=== PATIENT | female | born 1955 | race Caucasian/White ===

== ENCOUNTER 2016-09-05 19:18 | Inpatient (IN) | payer OTHER ==
[~2016-09-05] VITALS: Ht 152.4 cm; Wt 61.2 kg
--- NOTE | 2016-09-05 19:39 | NUR ---
RECEIVED 60 YO FEMALE BIBA FROM HOME WITH HX OF M.S., FOR ALTERED MENTAL STATUS. ACCORDING TO REPORT BY PARAMEDICS FROM , PT HAS BEEN SLIGHTLY DISORIENTED, AND MORE WEAK AND LESS ACTIVE THAN NORMAL. PT ORIENTED TO PT, PLACE, PT KNOWS IT IS 2015 BUT NOT WHICH MONTH. PT ANSWERING ALL QUESTIONS APPROPRIIATELY. HR 127
--- NOTE | 2016-09-05 19:45 | NUR ---
ASSISTED NEDA HARKINS WITH CLEANING PT, NOTED POSSIBLE 2ND DREE BURN ON LEFT INNER THIGH AND 2ND DEGREE BURN TO RIGHT BACK SIDE OF LEG APPROX FOOT IN LENGTH AND 3 IN WIDE, TORN SKIN NOTED, UNDER BILATERAL BREASTS OPEN SKIN FROM BRA AND RED IN COLOR REDNESS BETWEEN GROIN NOTED
--- NOTE | 2016-09-05 19:58 | NUR ---
ACCORDING TO WHO JUST ARRIVED TO ED, PT WAS FOUND BY ON THE FLOOR AND SHE THOUGHT SHE WAS ON THE CHAIR. ACCORDING TO , PT WAS SHOWING MENTAL CONFUSION TODAY WHICH IS ABNORMAL FOR HER. STATES SHE USES A WALKER OUTSIDE THE HOME BUT INSIDE HER HOME SHE WALKS BY HOLDING ON TO THINGS. F.S. 130.
--- NOTE | 2016-09-05 20:18 | NUR ---
PT SENT TO CT SCAN
--- NOTE | 2016-09-05 20:33 | CT SCAN REPORT ---
EXAMINATION: CT HEAD WITHOUT CONTRAST CLINICAL INFORMATION: Weakness and confusion. History of MS. COMPARISON: MRI from 05/24/2015. TECHNIQUE: Contiguous axial imaging was performed from the skull base to vertex without intravenous contrast. DLP: 672 mGy-cm. FINDINGS: There is no evidence of acute intracranial hemorrhage or territorial infarction. No abnormal mass effect or midline shift is seen. [place] to white matter differentiation is well preserved. No extra-axial fluid collections are identified. No hydrocephalus. Proportional prominence of the ventricles and sulcal spaces is consistent with mild volume loss. Hypoattenuation seen in the periventricular white matter corresponds to the areas of increased T2 signal on prior MRI. The osseous structures and soft tissues are normal. Mild mucoperiosteal thickening of the right maxillary sinus. The mastoid air cells and visualized portions of the paranasal sinuses are otherwise well aerated. IMPRESSION: No acute intracranial pathology. White matter hypoattenuation favoring the periventricular region is similar to the prior T2 bright areas on MRI, consistent with known MS.
--- NOTE | 2016-09-05 20:48 | RADIOLOGY REPORT ---
EXAMINATION: XR PORTABLE CHEST CLINICAL INFORMATION: Weakness. Confusion, wheezing. COMPARISON: None TECHNIQUE: Portable AP view of the chest was obtained. FINDINGS: Low lung volumes. No consolidation, edema, or effusion. No pneumothorax. The cardiomediastinal silhouette is within normal limits. No acute osseous abnormality. Calcification seen adjacent to the right humerus greater tuberosity suggestive of calcific tendinosis. IMPRESSION: No acute pulmonary findings.
--- NOTE | 2016-09-05 21:00 | ED AMS/SEIZURE/WEAK/DIZZY ---
History of Present Illness General Chief Complaint: Altered Mental Status Stated Complaint: BIBA, FALL AMS Source: patient, family, old records, EMS Exam Limitations: clinical condition Vital Signs & Intake/Output Vital Signs & Intake/Output Vital Signs Date Time Temp Pulse Resp B/P Pulse O2 O2 Flow FiO2 Ox Delivery Rate 09/05 2306 99.6 128 18 120/84 96 Room Air 09/05 2136 97 Room Air 09/06 2131 99.2 131 0 129/60 96 Room Air 09/05 1930 98.4 127 18 145/94 92 Room Air Allergies Coded Allergies: NO KNOWN ALLERGIES (04/27/14) Reconcile Medications Aspirin (Ecotrin*) 81 MG TABLET.DR 1 TAB PO DAILY HEART HEALTH (Reported) Atorvastatin Calcium 40 MG TABLET 1 TAB PO DAILY HIGH CHOLESTROL (Reported) Carbamazepine (Tegretol XR) 100 MG TAB.ER.12H 1 TAB PO BIDP PRN TRIGEMINAL NEURALGIA (Reported) Loratadine (Claritin) 10 MG TABLET 1 TAB PO DAILY NEEDED ALLERGIES ( Reported) Natalizumab (Tysabri) 300 MG/15 ML VIAL MULTIPLE SCLEROSIS (Reported) Triage Note: RECEIVED 60 YO FEMALE BIBA FROM HOME WITH HX OF M.S., FOR ALTERED MENTAL STATUS. ACCORDING TO REPORT BY PARAMEDICS FROM , PT HAS BEEN SLIGHTLY DISORIENTED, AND MORE WEAK AND LESS ACTIVE THAN NORMAL. PT ORIENTED TO PT, PLACE, PT KNOWS IT IS 2015 BUT NOT WHICH MONTH. PT ANSWERING ALL QUESTIONS APPROPRIIATELY. HR 127 Triage Nurses Notes Reviewed? yes Onset: Just prior to arrival Duration: hour(s):, constant, continues in ED Timing: recent history Injury Environment: home Severity: severe No Modifying Factors: none LMP (ages 10-50): post menopausal : No Patient currently breastfeeds: No HPI: Several hours prior to admission spouse notes patient had episodes of swearing every few minutes. He reports being ill and napping for the course of the day. He found her confused to time on the floor next to her chair unable to get up. There is no reported fever chills nausea vomiting diarrhea abdominal pain chest pain shortness breath headache dysuria rash bleeding. Past History Travel History Traveled to [place] past 21 day No Medical History Any Pertinent Medical History? see below for history Neurological: multiple sclerosis, trigeminal neuralgia EENT: NONE Cardiovascular: hyperlipidemia Respiratory: NONE Gastrointestinal: NONE Hepatic: NONE Renal: NONE Musculoskeletal: NONE Psychiatric: NONE Endocrine: NONE Surgical History Surgical History: non-contributory Psychosocial History What is your primary language Uzbek Tobacco Use: Current Daily Use Daily Tobacco Use Amount/Type: => 5 Cigarettes daily Family History Hx Contributory? No Review of Systems Review of Systems Constitutional: Reports: see HPI, weakness. EENTM: Reports: no symptoms. Respiratory: Reports: no symptoms. Cardiovascular: Reports: no symptoms. GI: Reports: no symptoms. Genitourinary: Reports: no symptoms. Musculoskeletal: Reports: no symptoms. Skin: Reports: no symptoms. Neurological/Psychological: Reports: see HPI, confusion, weakness. Hematologic/Endocrine: Reports: no symptoms. Immunologic/Allergic: Reports: no symptoms. All Other Systems: Reviewed and Negative Physical Exam Physical Exam General Appearance: well developed/nourished, alert, awake, anxious, mild distress Head: atraumatic, normal appearance Eyes: Bilateral: normal appearance, PERRL, EOMI. Ears, Nose, Throat: normal pharynx, normal ENT inspection Neck: normal inspection, supple, full range of motion, no midline tenderness Respiratory: chest non-tender, no respiratory distress, quiet respiration, lungs clear, wheezing Cardiovascular: regular rate/rhythm, normal peripheral pulses, tachycardia, norml femoral pulses equa Peripheral Pulses: 4+ carotid (R), 4+ carotid (L) Gastrointestinal: normal bowel sounds, soft, non-tender, no organomegaly Back: normal inspection, normal range of motion Extremities: normal range of motion, no ligament instability Neurologic/Psych: no motor/sensory deficits, awake, 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 Skin: normal color, warm/dry, rash, right posterior calf to knee with skin tear versus partial thickness burn Lymphatic: no anterior cervical amina Core Measures ACS in differential dx? No CVA/TIA Diagnosis: No Severe Sepsis Present: No Septic Shock Present: No Progress Differential Diagnosis: CVA/stroke, dehydration, drug intoxication, electrolyte imbalance, hypoglycemia, intracranial Hem., multiple sclerosis, pneumonia, UTI/ pyelo Plan of Care: Orders Procedure Date/time Status Regular Diet 09/06 B Active CBC WITHOUT DIFFERENTIAL 09/06 06 Active BASIC ELECTROLYTES PLUS BUN&CR 09/06 06 Active Add-on Test (ER Only) 09/05 2326 Active RAPID VIRAL INFLUENZA A 09/05 230 Active BLOOD CULTURE 09/05 2246 Active LACTIC ACID 09/05 2246 Active Add-on Test (ER Only) 09/05 2144 Active Patient Data 09/05 2136 Active Intake & Output 09/06 2131 Active SERUM OSMOLALITY 09/05 2109 Active LACTIC ACID 09/05 2109 Active OXYGEN SETUP (GEN) 09/05 2057 Active Saline Lock 09/05 2057 Active Admit to inpatient 09/05 2057 Active Vital Signs 09/05 2057 Active Activity/Ambulation 09/05 2057 Active Code Status 09/05 2057 Active FingerStick- Glucose 09/05 2002 Active URINALYSIS 09/05 1948 Complete TROPONIN LEVEL 09/05 1948 Active COMPREHENSIVE METABOLIC PANEL 09/05 1948 Active CREATINE PHOSPHOKINASE 09/05 1948 Active CBC WITHOUT DIFFERENTIAL 09/05 1948 Complete EKG 09/06 1939 Active Current Medications Sig/Ronak Start time Last Medication Dose Stop Time Status Admin Aspirin Buffered 81 MG DAILY 09/06 1000 UNVr (Ecotrin) Carbamazepine 100 MG BID 09/06 1000 UNVr (Tegretol) Laboratory Tests 09/05/162109: Anion Gap 11, Estimated GFR > 60, BUN/Creatinine Ratio 22.5, Glucose 138 H, Serum Osmolality 301 H, Lactic Acid Pending, Calcium 10.0, Total Bilirubin 0.7, AST 748 H, ALT 156 H, Alkaline Phosphatase 155 H, Creatine Kinase > 06187 H, Troponin I 0.02, Total Protein 7.6, Albumin 4.5, Globulin 3.1, Albumin/Globulin Ratio 1.5, CBC w Diff NO MAN DIFF REQ, RBC 5.76 H, MCV 89.8, MCH 29.6, RDW 14.5 , MPV 7.9, Gran % 84.6 H, Lymphocytes % 10.9 L, Monocytes % 4.4, Eosinophils % 0, Basophils % 0.1, Absolute Granulocytes 12.1 H, Absolute Lymphocytes 1.6, Absolute Monocytes 0.6, Absolute Eosinophils 0, Absolute Basophils 0, PUBS MCHC 33.0, Urine Color YEL, Urine Clarity CLEAR, Urine pH 6.0, Ur Specific [place] 1.025, Urine Protein 100 H, Urine Ketones 15 H, Urine Nitrite NEG, Urine Bilirubin NEG@ICTO, Urine Urobilinogen 0.2, Ur Leukocyte Esterase NEG, Ur Microscopic SEDIMENT EXAMINED, Urine RBC 3-5, Ur Epithelial Cells FEW, Urine Bacteria MOD H, Urine Hemoglobin LARGE H, Urine Glucose NEG Microbiology 09/05 2320 NASOPHARYN: Influenza Virus A & B Rapid Smear - RECD 09/05 2246 BLOOD: Blood Culture - ORD 09/05 2246 BLOOD: Blood Culture - ORD Diagnostic Imaging: Viewed by Me: Radiology Read, CT Scan. Discussed w/RAD: Radiology Read, CT Scan. Radiology Impression: no acute abnormality CXR Impression: no acute abnormality Initial ED EKG: normal axis, normal intervals, normal p-waves, normal QRS complex, rate (sinus tachycardia), no ST T wave changes Rhythm Strip: sinus tachycardia Departure Departure Disposition: STILL A PATIENT Condition: Stable Clinical Impression Primary Impression: Rhabdomyolysis Qualifiers: Rhabdomyolysis type: non-traumatic Qualified Code: M62.82 - Rhabdomyolysis Secondary Impressions: Altered mental status, unspecified Leukocytosis Qualifiers: Leukocytosis type: unspecified Qualified Code: D72.829 - Elevated white blood cell count, unspecified Referrals: ROSEMARY WILEY MD (PCP/Family) Departure Forms: Customer Survey General Discharge Information Admission Note Spoke With: LENARD FARAH MD Documentation of Exam: Documentation of any treatments & extenuating circumstances including Concerns Regarding Discharge (functional status, medication knowledge or non-compliance, living conditions, etc.) that warrant an admission rather than observation: IV hydration serial lab exam medication adjustment neurology evaluation and social service evaluation continuing care discharge planning
[2016-09-05 21:19] LABS: ABSOLUTE BASOPHIL COUNT 0 /CUMM (0.0-0.2); ABSOLUTE EOSINOPHIL COUNT 0 /CUMM (0.0-0.7); ABSOLUTE GRANULOCYTE CT 12.1 /CUMM (1.4-6.5); ABSOLUTE LYMPH COUNT 1.6 /CUMM (1.2-3.4); ABSOLUTE MONOCYTE COUNT 0.6 /CUMM (0.10-0.60); BASOPHIL % 0.1 % (0.0-2.0); EOSINOPHIL % 0 % (0-5); GRANULOCYTE % 84.6 % (42.2-75.2); HEMATOCRIT 51.8 % (37-47); MEAN CORPUSCULAR HGB 29.6 PG (27.0-31.0); MEAN CORPUSCULAR VOLUME 89.8 FL (81.0-99.0); MEAN PLATELET VOLUME 7.9 FL (7.4-10.4); PLATELET COUNT 206 /CUMM (130-400); RBC DISTRIBUTION WIDTH 14.5 % (11.5-14.5); RED BLOOD CELL CT 5.76 /CUMM (4.20-5.40); WHITE BLOOD CELL COUNT 14.3 /CUMM (4.8-10.8)
--- NOTE | 2016-09-05 22:04 | NUR ---
LAB CALLED STATING AST WAS ERRONEOUSLY RESULTED >750, SHOULD HAVE BEEN 748 AND IS BEING CHANGED AT THIS TIME.
[2016-09-05] MEDS ORDERED: ATORVASTATIN CA40 M1 PO (22:11)
[2016-09-05] MEDS ORDERED: ASPIRIN EC81 M1 PO (22:12)
[2016-09-05] MEDS ORDERED: TEGRETOL XR100 MG PO (22:13)
[2016-09-05] MEDS ORDERED: CLARITIN10 M1 PO (22:14)
[2016-09-05] MEDS ORDERED: TYSABRI300 MG/15 IV (22:16)
--- NOTE | 2016-09-05 22:16 | NUR ---
PT TO ROOM 215 BED 2
--- NOTE | 2016-09-05 22:26 | History & Physical ---
General Information and HPI Allergies/Medications Allergies: Coded Allergies: NO KNOWN ALLERGIES (04/27/14) Home Med list Aspirin (Ecotrin*) 81 MG TABLET.DR 1 TAB PO DAILY HEART HEALTH (Reported) Atorvastatin Calcium 40 MG TABLET 1 TAB PO DAILY HIGH CHOLESTROL (Reported) Carbamazepine (Tegretol XR) 100 MG TAB.ER.12H 1 TAB PO BIDP PRN TRIGEMINAL NEURALGIA (Reported) Loratadine (Claritin) 10 MG TABLET 1 TAB PO DAILY NEEDED ALLERGIES ( Reported) Natalizumab (Tysabri) 300 MG/15 ML VIAL MULTIPLE SCLEROSIS (Reported) Past History Travel History Traveled to [place] past 21 day No Medical History Neurological: multiple sclerosis, trigeminal neuralgia EENT: NONE Cardiovascular: hyperlipidemia Respiratory: NONE Gastrointestinal: NONE Hepatic: NONE Renal: NONE Musculoskeletal: NONE Psychiatric: NONE Endocrine: NONE
--- NOTE | 2016-09-05 22:49 | History & Physical ---
See Addendum General Information and HPI History of Present Illness: 60 year old lady with a PMH of multiple sclerosis and hypercholesterolemia presenting with altered mental status for 1 day and significantly worsening lower extremity weakness for 2 weeks. Per patient's lower extremity has been progresssively worsening over the past 5 years, requiring her to ambulate with a cane and walker. Since 2 weeks ago however her weakness has dramatically worsened to the point that she was unable to walk for the past couple of days. Per , patient fell 3-4 times due to imbalance during the past year causing multiple superficial injuries but no hospitalizations. She has been bedbound for the most part recently as a result. Earlier in the afternoon today the patient was found on the floor with altered mental status. reports that she was agitated, cursing, talking to herself, and slow to answering questions since the morning. He feels that patient was also slgithly warm to touch in the forehad for the past couple of days. She has a nonrpoductive cough at baseline. Denies any chest pain, palpitations, shortness of breath, abdominal pain, n/v/c/d, dizziness, lightheadedness, headache. Patient was diagnosed with MS about 20 years ago, with the primary symptoms being double vision and for the past 5 years, also lower extremity weakness. Patient sees Dr. Irizarry every other month and receives Tysabri at [facility] on a monthly basis (most recelty on 08/21/15, next due 09/18). She also takes Tegretol for neuralgia with appropriate response. During her follow up 2 weeks ago there were no significant changes in her health or management for MS. On patient lives at home with her . She smokes up to 2 PPD (10+ year). Denies any EtOH or illicit drug use. She ambulates with a cane and a walker. She used to work in the [employer] field and quit 10 years ago. PCP - Dr. Wiley Neuro - Dr. Irizarry Full code. Allergies/Medications Allergies: Coded Allergies: NO KNOWN ALLERGIES (04/27/14) Home Med list Aspirin (Ecotrin*) 81 MG TABLET.DR 1 TAB PO DAILY HEART HEALTH (Reported) Atorvastatin Calcium 40 MG TABLET 1 TAB PO DAILY HIGH CHOLESTROL (Reported) Carbamazepine (Tegretol XR) 100 MG TAB.ER.12H 1 TAB PO BIDP PRN TRIGEMINAL NEURALGIA (Reported) Loratadine (Claritin) 10 MG TABLET 1 TAB PO DAILY NEEDED ALLERGIES ( Reported) Natalizumab (Tysabri) 300 MG/15 ML VIAL MULTIPLE SCLEROSIS (Reported) Past History Travel History Traveled to [place] past 21 day No Medical History Neurological: multiple sclerosis, trigeminal neuralgia EENT: NONE Cardiovascular: hyperlipidemia Respiratory: NONE Gastrointestinal: NONE Hepatic: NONE Renal: NONE Musculoskeletal: NONE Psychiatric: NONE Endocrine: NONE Surgical History Surgical History: appendectomy Past Family/Social History Psychosocial History Where do you live? Home Review of Systems Review of Systems Constitutional: Reports: see HPI. Exam & Diagnostic Data Last 24 Hrs of Vital Signs/I&O Vital Signs Date Time Temp Pulse Resp B/P Pulse O2 O2 Flow FiO2 Ox Delivery Rate 09/057 99.6 128 18 120/84 96 Room Air 09/057 97 Room Air 09/06 2131 99.2 131 0 129/60 96 Room Air 09/05 1931 98.4 127 18 145/94 92 Room Air Physical Exam General Appearance Alert, Cooperative, Mild Distress, Slightly lethargic Skin Abrasions and laceration in the post RLE and back HEENT Atraumatic, PERRLA, EOMI Neck Supple, No JVD Cardiovascular Regular Rate, Normal S1, Normal S2, No Murmurs, Gallops, Rubs Lungs Decreased BS bilaterally, Mild wheezing worse on the left side Abdomen Normal Bowel Sounds, Soft, No Tenderness Neurological Normal Gait, Normal Speech, Sensation Intact, Cranial Nerves 3-12 NL, 3/5 strength in bilateral LEs Extremities No Clubbing, No Cyanosis, No Edema, Normal Pulses, No Tenderness/ Swelling Vascular Normal Pulses, Pulses Symmetrical Last 24 Hrs of Labs/Meet: Laboratory Tests 09/05/162109: Anion Gap 11, Estimated GFR > 60, BUN/Creatinine Ratio 22.5, Glucose 138 H, Serum Osmolality 301 H, Calcium 10.0, Total Bilirubin 0.7, AST 748 H, ALT 156 H, Alkaline Phosphatase 155 H, Creatine Kinase > 67155 H, Troponin I 0.02, Total Protein 7.6, Albumin 4.5, Globulin 3.1, Albumin/Globulin Ratio 1.5, CBC w Diff NO MAN DIFF REQ, RBC 5.76 H, MCV 89.8, MCH 29.6, RDW 14.5, MPV 7.9, Gran % 84.6 H, Lymphocytes % 10.9 L, Monocytes % 4.4, Eosinophils % 0, Basophils % 0.1, Absolute Granulocytes 12.1 H, Absolute Lymphocytes 1.6, Absolute Monocytes 0.6, Absolute Eosinophils 0, Absolute Basophils 0, PUBS MCHC 33.0, Urine Color YEL, Urine Clarity CLEAR, Urine pH 6.0, Ur Specific [place] 1.025, Urine Protein 100 H, Urine Ketones 15 H, Urine Nitrite NEG, Urine Bilirubin NEG@ICTO, Urine Urobilinogen 0.2, Ur Leukocyte Esterase NEG, Ur Microscopic SEDIMENT EXAMINED, Urine RBC 3-5, Ur Epithelial Cells FEW, Urine Bacteria MOD H, Urine Hemoglobin LARGE H, Urine Glucose NEG Microbiology 09/05 2301 NASOPHARYN: Influenza Virus A & B Rapid Smear - ORD 09/05 2246 BLOOD: Blood Culture - ORD 09/05 2246 BLOOD: Blood Culture - ORD Diagnostic Data EKG Results Sinus tachycardia Assessment/Plan Assessment: 60 year old lady with a PMH of multiple sclerosis and hypercholesterolemia presenting with altered mental status for 1 day and significantly worsening lower extremity weakness for 2 weeks, concerning for sepsis 2/2 cellulitis and MS exacerbation, respectively. # Sepsis 2/2 RLE cellulitis * Start IV cefazolin * IV hydration with NS at 150cc/hr * Trend lactic acid level * Recheck CBC in A.M. * Recheck CK in A.M. * Follow RLE Xray stat * Follow pancultures * Consult wound care in A.M. # MS exacerbation * Cont home med Tegretol for neuralgia * Appreciate recs from Dr. Irizarry * B/L LE Venous Doppler * Follow D-dimer, CTA if it's high * PT/OT recs # Transaminitis and eleavated CK Most likely from trauma-induced muscle injury probably with a component of statin use * Aggressive IVF resuscitation * Recheck LFTs and CK in A.M * Consider RUQ U/S if LFTs still elevated # HLD * Hold home med lipitor in the setting of elevated CK # Heart healthy diet # Mild pain pathway # DVTppx with heparin # Full code As Ranked By This Provider Problem List: 1. Altered mental status, unspecified 2. Rhabdomyolysis Qualifiers Rhabdomyolysis type: non-traumatic Qualified Code: M62.82 - Rhabdomyolysis 3. Leukocytosis Qualifiers Leukocytosis type: unspecified Qualified Code: D72.829 - Elevated white blood cell count, unspecified 4. Transaminitis 5. Elevated CPK 6. Cellulitis 7. Sepsis Core Measures/Miscellaneous Acute Coronary Syndrome ACS Diagnosis: No Cerebrovascular Accident CVA/TIA Diagnosis: No Congestive Heart Failure CHF Diagnosis: No Venous Thromboembolism VTE Risk Factors: Age > 40, Immobility, paresis, Smoking No [facility] VTE prophylaxis d/t: LE Edema, LE Injury, current No VTE Pharm Prophylaxis d/t: No contraindications VTE Diagnosis: No VTE Type: NONE VTE Confirmed by (Test): NONE Severe Sepsis Severe Sepsis Present: No Septic Shock Septic Shock Present: No Miscellaneous Documentation Attending Case Discussed With: LENARD FARAH MD Primary Care Physician: ROSEMARY WILEY MD Patient sees these Specialists See HPI Level of Patient Care: General Medicine
--- NOTE | 2016-09-05 23:17 | NUR ---
PT ADMITTED TO ROOM # 215-2, ORAL REPORT GIVEN TO JENNY DOS SANTOS ALL V.S.S. CLINICAL STATUS UNCHANGED. PT READY FOR TRANSFER
--- NOTE | 2016-09-05 23:20 | NUR ---
FLU SWAB OBTAINED AND SENT 1ST BL CULT DRAWN AND SENT
--- NOTE | 2016-09-05 23:40 | NUR ---
2ND BL CULT DRAWN AND SENT
--- NOTE | 2016-09-05 23:48 | NUR ---
CRITICAL TEST RESULTS [id number] ELVA KIMBLE 60 F TESTS AND RESULTS: LACTIC = 2.2 Results received and read back by: ROSEMARIE MONROY Results received date and time: 09/05/16 5219 The following provider was notified of the results, and read the results back: Notified date and time: 09/05/16 at 9945
--- NOTE | 2016-09-06 01:13 | RADIOLOGY REPORT ---
EXAMINATION: AP view of the thoracic spine, AP view of the chest, 2 views of the right RIBS, 2 views of the left ribs, and 2 views of the right foot CLINICAL INFORMATION: Fall with pain COMPARISON: Chest x-ray 09/05/2016 FINDINGS: Chest and RIBS: Symmetric lung inflation. No focal consolidation, pleural effusion, or pneumothorax. Cardiac silhouette size is normal. No acute osseous findings. No displaced rib fractures. Thoracolumbar spine: Very limited assessment given the lack of a lateral view. There is a mild leftward convex scoliotic curvature of the lumbar spine. Degenerative changes at L4-L5. No definite acute fractures nor acute subluxations are identified on this frontal view. Nonobstructive bowel gas pattern. Right foot: Limited assessment of the foot with a lack of AP view. No fracture. Bony articulations are maintained. No radiopaque foreign bodies. IMPRESSION: - No acute pulmonary process. No displaced rib fractures are seen. - Very limited assessment of the thoracolumbar spine as the patient was not able to position for a lateral view. No definite fractures are seen though assessment is limited. There are degenerative changes at L4-L5. - No definite acute osseous findings involving the right foot however assessment is limited as the patient was not able to position for an AP view.
--- NOTE | 2016-09-06 02:47 | NUR ---
NSG NOTE: PT ARRIVED TO FLOOR WITH MST. PT AWAKE, A/O TO PERSON AND PLACE, ON ROOM AIR, IV SITE INTACT WITH IVF INFUSING PER ORDER, VITALS OBTAINED AND PT RUNNING TACHY IN THE 120'S, MD GE AWARE, DRY SCALY, PEELING SKIN NOTED TO BLE, BUE, BILAT CHEST, AREAS OF REDNESS NOTED UNDER BILAT BREASTS, GROIN AND UNDER ABD FOLDS, AREA OF RED, PEELED/BLISTERED SKIN AT R POSTERIOR KNEE, ALPS IN PLACE, PT DENIES PAIN, PT ORIENTED TO ROOM AND CALL DARLING WITHIN REACH. WILL CONTINUE TO MONITOR.
--- NOTE | 2016-09-06 03:28 | PN- Att Addend ---
Attending Addendum Attending Brief Note cc: fall, changes in mental status PMH: Multiple sclerosis History is partially obtain from and from the patient. states that patient has been moaning and using curse words repeatedly during the daytime which is not usual for her. was sick with URI symptoms so he was sleeping in other room and verbally I asked her couple of times if something was wrong, patient denied anything. But later on when patient's went and checked on her patient was lying on the floor, refusing to go to hospital. Patient did not complain to the about the fall, she said that she slipped from the chair. Patient denies any complaints. She says that she is been having multiple falls recently. She admits some back pain but otherwise 14 system ROS negative. says that patient has been getting more weak and lethargic over last 2 weeks, used to walk with a cane and walker but less ambulating since last 2 days, multiple falls, balance problems. According to patient is not to her baseline mental status. No seizures, no loss of consciousness, no confusion, no bowel or bladder incontinence. Vitals: T max 99.6, tachycardic, RR 18, blood pressure 145/94 at presentation decreased to 120/84, saturating well on room air. On examination cachectic, poor hygiene, alert, oriented place and person, little off in time but recalls back again. Cranial nerves intact, increased tone bilateral lower extremities, and left upper extremity. Bilateral upper extremity strength 5/5. Lower extremity strength 3+/5. Sensations intact. CVS: S1-S2, tachycardia. RS: Clear to auscultate bilaterally. Abdomen: Soft, NT, ND, Perales's sign negative, bowel sounds present., Mucosa dry, neck supple, no lymphadenopathy, no JVD. Patient has skin breakdown on the right popliteal fossa appears at least 2 days old, with peripheral redness, warmth. Patient also has a bruise on the right side of upper back, tender, warm to touch. The right lower extremity is larger in diameter compared to left lower extremity. Minimum pitting edema. She has fungal infection in inguinal folds, and seborrheic dermatitis forehead and chest. Labs: WBC 14.3, hemoglobin 17.1, neutrophils 84%, BUN 18, glucose 138, lactic acid 2.2, AST 748, ALT 156, alkaline phosphatase 155, CK more than 32,000, troponin 0.02, albumin 4.5, d-dimer 2872. UA negative for UTI. Imaging: CT head:No acute intracranial pathology. White matter hypoattenuation favoring the periventricular region is similar to the prior T2 bright areas on MRI, consistent with known MS. CXR: No acute process A and p #1 unwitnessed fall: Patient refuses loss of consciousness, seizures, presyncope , bowel or bladder incontinence she said she slipped from the chair. She is been having multiple falls recently with balance problem. Obtain OT PT evaluation #2 skin breakdown on the right popliteal fossa with secondary infection: May have happened in one of the falls, patient neglects this wound, does not complain much. Patient has elevated WBC 14.3 with neutrophils 84% low-grade fever, the wound area is erythematous and warm. Would treat this with cefazolin for now, wound consult, blood cultures 2. Trend lactate #3 patient also has contusion on the back right upper aspect, probably secondary to fall rule out any fractures with x-rays thoracolumbar spine and ribs. #4 rhabdomyolysis: Elevated CPK probably secondary to falls, creatinine appears normal. Continue aggressive hydration with 150-200 mL and normal saline per hour repeat CPK BMP in a.m. Patient is hemoconcentrated, and dehydrated on exam. #5 transaminitis: Unclear etiology patient is currently on Natalizumab which has one of the complications as transaminitis. Rhabdomyolysis and statins may be contributing. Continue hydration for now, repeat LFT in a.m. given her confusion , obtain ammonia in the setting of elevated transaminitis. #6 metabolic encephalopathy: According to her patient is not her mental baseline. Patient is little slow to respond, oriented in place and person but takes some time to answer about orientation. Probably secondary to infection, rule out hepatic cause as mentioned above. #7 patient's right lower extremity is increase in diameter as compared to left side, has been tachycardic. Patient is less mobile and mostly bedbound, in this setting, obtain venous Doppler bilateral lower extremity and d-dimer. If d-dimer is elevated I would suggest getting a CTA to rule out any PE. #8 inform patient's neurologist about patient being in hospital and worsening her baseline mental status, upon patient's 's request. #9 DVT prophylaxis with Lovenox, nystatin powder for inguinal fold infection.
[2016-09-06 04:05] VITALS: BP 140/80
--- NOTE | 2016-09-06 06:02 | PN- Housestaff ---
Subjective Follow-up For: Sepsis MS ?Cellulitis Subjective: Ms. Evans was seen and examined this morning. She is resting comfortably in bed. She denies any active complaints and seems comfortable. She is alert however not oriented 3. Initially she does mention that she is unhappy about her lack of a normal retreating which she normally has at home. She denies any pain, fever, nausea, vomiting, chills. Review of Systems Constitutional: Reports: see HPI. Objective Last 24 Hrs of Vital Signs/I&O Vital Signs Date Time Temp Pulse Resp B/P Pulse O2 O2 Flow FiO2 Ox Delivery Rate 09/06 1505 99.1 126 18 134/76 96 09/06 1030 122 09/06 0933 Room Air 09/06 0747 99.9 124 20 150/84 92 Room Air 09/06 0405 100.3 120 24 140/80 93 Room Air 09/06 0134 93 Room Air 09/05 2307 99.6 128 18 120/84 96 Room Air 09/05 2137 97 Room Air 09/05 2132 99.2 131 0 129/60 96 Room Air 09/05 1931 98.4 127 18 145/94 92 Room Air Intake & Output 09/06 1600 09/06 0800 09/06 0000 Intake Total 2000 1010 1000 Output Total 350 Balance 1650 1010 1000 Intake, IV 5746 889 5468 Intake, Oral 800 360 Output, Urine 350 Patient 61.235 kg Weight Physical Exam General Appearance: Alert, Cooperative, No Acute Distress Cardiovascular: Regular Rate, Normal S1, Normal S2 Lungs: Clear to Auscultation Abdomen: Normal Bowel Sounds, Soft, No Tenderness Neurological: Normal Speech Extremities: No Clubbing, No Cyanosis, 5cm x 5cm. Erythematous ulcer. Right Inferior Knee. Non Tender. Warm to touch. Weeping + Current Medications: Current Medications Sig/Ronak Start time Last Medication Dose Route Stop Time Status Admin Acetaminophen 650 MG Q6P PRN 09/06 0030 AC PO Aspirin Buffered 81 MG DAILY 09/06 1000 AC 09/06 PO 1009 Carbamazepine 50 MG BID 09/06 2200 AC PO Carbamazepine 100 MG BID 09/06 1000 DC 09/06 PO 1009 Cefazolin Sodium 1,000 MG Q8H 09/06 2200 AC N/A 1 UNIT IV Cefazolin Sodium 2 GM Q8H 09/06 0600 DC 09/06 N/A 1 UNIT IV 1343 Cefazolin Sodium 2 GM IQ8 09/06 0200 DC 09/06 N/A 1 UNIT IV 0526 Heparin Sodium 5,000 UNIT Q8 09/06 0600 09/06 (Porcine) SC 1341 Lamotrigine 25 MG DAILY 09/06 1524 AC 09/06 PO 1752 Nystatin 1 AIDA TID 09/06 0020 09/06 TOP 1752 Patient Medication 1 ED .STK-MED ONE 09/06 1343 MS Teaching ED 09/06 1344 Sodium Chloride 1,000 ML Q6H 09/05 2345 AC 09/06 IV 1752 Sodium Chloride 1,000 ML BOLUS ONE 09/05 2215 DC 09/05 IV 09/05 2314 2304 Sodium Chloride 1,000 ML BOLUS ONE 09/06 1999 DC 09/05 IV 09/051 Last 24 Hrs of Lab/Meet Results Last 24 Hrs of Labs/Mics: Laboratory Tests 09/06/16 0650: Anion Gap 7, Estimated GFR > 60, BUN/Creatinine Ratio 20.0, Total Bilirubin 0.4, Direct Bilirubin 0.3, AST 916 H, ALT 184 H, Alkaline Phosphatase 106, Creatine Kinase > 54872 H, Total Protein 5.4 L, Albumin 2.9 L, CBC w Diff NO MAN DIFF REQ, RBC 4.84, MCV 91.8, MCH 30.1, RDW 14.7 H, MPV 8.6, Gran % 68.9, Lymphocytes % 18.6 L, Monocytes % 12.2 H, Eosinophils % 0, Basophils % 0.3, Absolute Granulocytes 7.8 H, Absolute Lymphocytes 2.1, Absolute Monocytes 1.4 H, Absolute Eosinophils 0, Absolute Basophils 0, PUBS MCHC 32.8 L 09/06/16 0255: Ammonia < 9 L 09/06/16 0235: D-Dimer 2872 H 09/05/16 2320: Lactic Acid 2.1 09/05/16 2110: Anion Gap 11, Estimated GFR > 60, BUN/Creatinine Ratio 22.5, Glucose 138 H, Serum Osmolality 301 H, Lactic Acid 2.2 H, Calcium 10.0, Total Bilirubin 0.7, AST 748 H, ALT 156 H, Alkaline Phosphatase 155 H, Creatine Kinase > 60826 H, Troponin I 0.02, Total Protein 7.6, Albumin 4.5, Globulin 3.1, Albumin/Globulin Ratio 1.5, CBC w Diff NO MAN DIFF REQ, RBC 5.76 H, MCV 89.8, MCH 29.6, RDW 14.5 , MPV 7.9, Gran % 84.6 H, Lymphocytes % 10.9 L, Monocytes % 4.4, Eosinophils % 0, Basophils % 0.1, Absolute Granulocytes 12.1 H, Absolute Lymphocytes 1.6, Absolute Monocytes 0.6, Absolute Eosinophils 0, Absolute Basophils 0, PUBS MCHC 33.0, Urine Color YEL, Urine Clarity CLEAR, Urine pH 6.0, Ur Specific [place] 1.025, Urine Protein 100 H, Urine Ketones 15 H, Urine Nitrite NEG, Urine Bilirubin NEG@ICTO, Urine Urobilinogen 0.2, Ur Leukocyte Esterase NEG, Ur Microscopic SEDIMENT EXAMINED, Urine RBC 3-5, Ur Epithelial Cells FEW, Urine Bacteria MOD H, Urine Hemoglobin LARGE H, Urine Glucose NEG Microbiology 09/05 2329 BLOOD: Blood Culture - RES 09/06 2319 NASOPHARYN: Influenza Virus A & B Rapid Smear - COMP 09/06 2319 BLOOD: Blood Culture - RES Assessment/Plan Assessment: This is a 60-year-old female with past medical history of hyperlipidemia and multiple sclerosis who was brought into the emergency department on 09/05/2016 after having a change of mental status and status post unwitnessed mechanical fall. #Unwitnessed mechanical fall and evidence of rhabdomyolysis Mental status change status post fall and elevated creatinine kinase. Likely secondary to fall. Aggressive hydration and repeat CPK in a.m. Formal neurologic consult obtained. For further recommendations on change in mental status. #Skin breakdown right popliteal fossa Likely due to deconditioning of due to history of multiple sclerosis. Ensure the area remains dry. Keep leg elevated. Consider wound care consult for further recommendations on long-term wound care instructions. #Transaminitis Patient had an elevated AST 916 and ALT 184 levels. Repeat ALT and AST in AM Likely due to medications (carbamazipine). We will reduce the patient's dose of carbamazepine and likely try and find an alternative for trigeminal neuralgia relief. #History of multiple sclerosis Dr Edie MD, was notified that the patient has been admitted to [facility]. Continue to [facility] on a monthly basis #History of trigeminal neuralgia Patient is taking Carbamazepine (Tegretol) Spoke with neurologist Dr Edie MD, who is open to this suggestion that we can begin to reduce Tegretol and begin the patient on Lamotrigine. Monitor that patient for any side effects including SJS. #Hyperlipidemia Hold statin for now in the setting of elevated CPK. Once levels normalize one can consider beginning statin again. #History of smoking Nicotine patch 20 mg #Diet Heart healthy #DVT prophylaxis Lovenox #Code Full code Problem List: 1. Sepsis 2. Cellulitis 3. Elevated CPK 4. Transaminitis 5. Leukocytosis 6. Rhabdomyolysis 7. Altered mental status, unspecified Pain Ratin Pain Location: No Pain Reported Pain Goal: Remain pain free Pain Plan: Tylenol PRN Tomorrow's Labs & Rationales: BEP: CBC: LFT: Monitor AST and ALT In the setting of transaminitis
--- NOTE | 2016-09-06 06:08 | RADIOLOGY REPORT ---
EXAMINATION: XR FEMUR, RIGHT CLINICAL INFORMATION: Pain, erythema, and warmness. COMPARISON: None available. TECHNIQUE: Single AP view of the right femur is obtained. FINDINGS: Limited single AP view of the right femur. No visualized fracture. Exam is limited by technique. No soft tissue gas is appreciated. No radiopaque foreign bodies. IMPRESSION: Limited AP view of the right femur demonstrates no soft tissue gas and no definite fracture.
--- NOTE | 2016-09-06 07:14 | CT SCAN REPORT ---
EXAMINATION: CT ANGIOGRAM OF THE CHEST WITH AND WITHOUT CONTRAST (CT PULMONARY ANGIOGRAM FOR PE) CLINICAL INFORMATION: Leg swelling and fall with elevated d-dimer. COMPARISON: None available TECHNIQUE: Prior to contrast administration, noncontrast localization images were obtained. Subsequently, multidetector volumetric imaging was performed from the thoracic inlet to below the diaphragms following the administration of 86 mL Optiray 320 intravenous contrast. No contrast reaction reported Sagittal, coronal, and MIP oblique sagittal reformatted images were obtained on the CT workstation, uploaded to PACS, and reviewed. FINDINGS: Nondiagnostic assessment for pulmonary emboli secondary to contrast bolus timing which is an arterial phase. There is no focal consolidation, pleural effusion, or pneumothorax. Small peripherally placed groundglass opacities within the right left upper lobes, possibly of infectious or inflammatory etiology however a 3-6 month follow-up chest CT would be helpful in ensuring resolution. There is a 4 mm subpleural nodule within the anterior aspect of the right middle lobe on image 27 of series 4. There is centrilobular emphysema. The thoracic aorta is normal in caliber. The heart is normal in size without evidence of a pericardial effusion. There is no mediastinal, hilar, or axillary adenopathy. The partially imaged renal collecting systems are prominent in size and can be further assessed with ultrasound. No acute osseous abnormalities. IMPRESSION: - Nondiagnostic assessment for pulmonary emboli secondary to contrast bolus timing which is an arterial phase. If there is continued clinical suspicion for pulmonary emboli, a repeat examination would be recommended. - Small peripherally placed groundglass opacities within the right and left upper lobes, possibly of infectious or inflammatory etiology however a 3-6 month follow-up chest CT would be helpful in ensuring resolution. - The partially imaged renal collecting systems are prominent in size and can be further assessed with ultrasound. - There is a 4 mm subpleural nodule within the anterior aspect of the right middle lobe on image 27 of series 4. Nodule size or = to 4 mm in LOW RISK PATIENTS: No follow up needed. Nodule size or = to 4 mm in HIGH RISK PATIENTS: Follow up CT at 12 months; if unchanged, no further follow up.
[2016-09-06 07:47] VITALS: BP 150/84
[2016-09-06 08:35] LABS: ABSOLUTE BASOPHIL COUNT 0 /CUMM (0.0-0.2); ABSOLUTE EOSINOPHIL COUNT 0 /CUMM (0.0-0.7); EOSINOPHIL % 0 % (0-5); RBC DISTRIBUTION WIDTH 14.7 % (11.5-14.5); RED BLOOD CELL CT 4.84 /CUMM (4.20-5.40)
[2016-09-06 09:01] LABS: ABSOLUTE GRANULOCYTE CT 7.8 /CUMM (1.4-6.5); ABSOLUTE LYMPH COUNT 2.1 /CUMM (1.2-3.4); ABSOLUTE MONOCYTE COUNT 1.4 /CUMM (0.10-0.60); BASOPHIL % 0.3 % (0.0-2.0); GRANULOCYTE % 68.9 % (42.2-75.2); MEAN CORPUSCULAR HGB 30.1 PG (27.0-31.0); MEAN CORPUSCULAR HGB CONC 32.8 G/DL (33.0-37.0); MEAN CORPUSCULAR VOLUME 91.8 FL (81.0-99.0); MEAN PLATELET VOLUME 8.6 FL (7.4-10.4); PLATELET COUNT 193 /CUMM (130-400); WHITE BLOOD CELL COUNT 11.4 /CUMM (4.8-10.8)
[2016-09-06 09:04] LABS: HEMATOCRIT 44.4 % (37-47)
--- NOTE | 2016-09-06 11:50 | ULTRASOUND REPORT ---
EXAMINATION: RIGHT LOWER EXTREMITY DOPPLER VENOUS ULTRASOUND CLINICAL INFORMATION: Lower extremity swelling. Tachycardia. COMPARISON: None. TECHNIQUE: Doppler spectral analysis and color flow Doppler imaging was performed of the right lower extremity. Compression and augmentation maneuvers were performed. FINDINGS: The common femoral, profunda femoral, superficial femoral, greater saphenous, popliteal, and proximal calf veins were well-identified and normal. The veins demonstrate normal compressibility and color fill-in. A 2.7 x 1.6 x 1.8 cm Haji's cyst is present in the right lower extremity. IMPRESSION: No evidence for right lower extremity deep vein thrombosis.
--- NOTE | 2016-09-06 13:33 | PN- Att Addend ---
Attending Addendum Attending Brief Note Patient seen and examined this morning with the team. She was awake and operative. She is admitted with altered mental state with a question of cellulitis and has an open wound likely secondary to bursting of the blister behind her right calf as well as right popliteal fossa. She also has very abnormal LFTs/transaminitis. Vital Signs Date Time Temp Pulse Resp B/P Pulse O2 O2 Flow FiO2 Ox Delivery Rate 09/06 1030 122 09/06 0933 Room Air 09/06 0747 99.9 124 20 150/84 92 Room Air 09/06 0405 100.3 120 24 140/80 93 Room Air 09/06 0134 93 Room Air 09/05 2307 99.6 128 18 120/84 96 Room Air 09/05 2137 97 Room Air 09/05 2132 99.2 131 0 129/60 96 Room Air 09/05 1931 98.4 127 18 145/94 92 Room Air on exam; awake, nad. cv; s1,s2, rrr. resp; clear abd; soft, nt, bs+ ext: 1+ edema rle and + open area behind the right calf, right popliteal fossa. Laboratory Tests 09/06 09/06 09/06 09/05 0650 0255 0235 2320 Chemistry Sodium (137 - 145 mmol/L) 137 Potassium (3.5 - 5.1 mmol/L) 3.9 Chloride (98 - 107 mmol/L) 103 Carbon Dioxide (22 - 30 mmol/L) 27 Anion Gap (5 - 16) 7 BUN (7 - 17 mg/dL) 16 Creatinine (0.5 - 1.0 mg/dL) 0.8 Estimated GFR (>60 ml/min) > 60 BUN/Creatinine Ratio (7 - 25 %) 20.0 Lactic Acid (0.7 - 2.1 mmol/L) 2.1 Total Bilirubin (0.2 - 1.3 mg/dL) 0.4 Direct Bilirubin (< 0.4 mg/dL) 0.3 AST (14 - 36 U/L) 916 H ALT (9 - 52 U/L) 184 H Alkaline Phosphatase (<127 U/L) 106 Ammonia (9 - 30 umol/L) < 9 L Creatine Kinase (30 - 135 U/L) > 05893 H Total Protein (6.3 - 8.2 g/dL) 5.4 L Albumin (3.5 - 5.0 g/dL) 2.9 L Coagulation D-Dimer (70 - 232 ng/ml) 2872 H Hematology CBC w Diff NO MAN DIFF REQ WBC (4.8 - 10.8 /CUMM) 11.4 H RBC (4.20 - 5.40 /CUMM) 4.84 Hgb (12.0 - 16.0 G/DL) 14.5 Hct (37 - 47 %) 44.4 MCV (81.0 - 99.0 FL) 91.8 MCH (27.0 - 31.0 PG) 30.1 RDW (11.5 - 14.5 %) 14.7 H Plt Count (130 - 400 /CUMM) 193 MPV (7.4 - 10.4 FL) 8.6 Gran % (42.2 - 75.2 %) 68.9 Lymphocytes % (20.5 - 51.1 %) 18.6 L Monocytes % (1.7 - 9.3 %) 12.2 H Eosinophils % (0 - 5 %) 0 Basophils % (0.0 - 2.0 %) 0.3 Absolute Granulocytes (1.4 - 6.5 /CUMM) 7.8 H Absolute Lymphocytes (1.2 - 3.4 /CUMM) 2.1 Absolute Monocytes (0.10 - 0.60 /CUMM) 1.4 H Absolute Eosinophils (0.0 - 0.7 /CUMM) 0 Absolute Basophils (0.0 - 0.2 /CUMM) 0 PUBS MCHC (33.0 - 37.0 G/DL) 32.8 L / 2110 Chemistry Sodium (137 - 145 mmol/L) 140 Potassium (3.5 - 5.1 mmol/L) 5.1 Chloride (98 - 107 mmol/L) 99 Carbon Dioxide (22 - 30 mmol/L) 29 Anion Gap (5 - 16) 11 BUN (7 - 17 mg/dL) 18 H Creatinine (0.5 - 1.0 mg/dL) 0.8 Estimated GFR (>60 ml/min) > 60 BUN/Creatinine Ratio (7 - 25 %) 22.5 Glucose (65 - 99 mg/dL) 138 H Serum Osmolality (285 - 295 MOSM/KG) 301 H Lactic Acid (0.7 - 2.1 mmol/L) 2.2 H Calcium (8.4 - 10.2 mg/dL) 10.0 Total Bilirubin (0.2 - 1.3 mg/dL) 0.7 AST (14 - 36 U/L) 748 H ALT (9 - 52 U/L) 156 H Alkaline Phosphatase (<127 U/L) 155 H Creatine Kinase (30 - 135 U/L) > 22875 H Troponin I (< 0.11 ng/ml) 0.02 Total Protein (6.3 - 8.2 g/dL) 7.6 Albumin (3.5 - 5.0 g/dL) 4.5 Globulin (1.9 - 4.2 gm/dL) 3.1 Albumin/Globulin Ratio (1.1 - 2.2 %) 1.5 Hematology CBC w Diff NO MAN DIFF REQ WBC (4.8 - 10.8 /CUMM) 14.3 H RBC (4.20 - 5.40 /CUMM) 5.76 H Hgb (12.0 - 16.0 G/DL) 17.1 H Hct (37 - 47 %) 51.8 H MCV (81.0 - 99.0 FL) 89.8 MCH (27.0 - 31.0 PG) 29.6 RDW (11.5 - 14.5 %) 14.5 Plt Count (130 - 400 /CUMM) 206 MPV (7.4 - 10.4 FL) 7.9 Gran % (42.2 - 75.2 %) 84.6 H Lymphocytes % (20.5 - 51.1 %) 10.9 L Monocytes % (1.7 - 9.3 %) 4.4 Eosinophils % (0 - 5 %) 0 Basophils % (0.0 - 2.0 %) 0.1 Absolute Granulocytes (1.4 - 6.5 /CUMM) 12.1 H Absolute Lymphocytes (1.2 - 3.4 /CUMM) 1.6 Absolute Monocytes (0.10 - 0.60 /CUMM) 0.6 Absolute Eosinophils (0.0 - 0.7 /CUMM) 0 Absolute Basophils (0.0 - 0.2 /CUMM) 0 PUBS MCHC (33.0 - 37.0 G/DL) 33.0 Urines Urine Color (YEL,AMB,STR) YEL Urine Clarity (CLEAR) CLEAR Urine pH (5.0 - 8.0) 6.0 Ur Specific [place] (1.001 - 1.035) 1.025 Urine Protein (NEG,<30 MG/DL) 100 H Urine Ketones (NEG) 15 H Urine Nitrite (NEG) NEG Urine Bilirubin (NEG) NEG@ICTO Urine Urobilinogen (0.1 - 1.0 EU/dl) 0.2 Ur Leukocyte Esterase (NEG) NEG Ur Microscopic SEDIMENT EXAMINED Urine RBC (0 - 5 /HPF) 3-5 Ur Epithelial Cells (NONE,FEW) FEW Urine Bacteria (NEG/NONE) MOD H Urine Hemoglobin (NEG) LARGE H Urine Glucose (N MG/DL) NEG A/P; 60-year-old female with past medical history significant for multiple sclerosis under treatment with the Ajay Irizarry MD, hyperlipidemia on statins admitted with altered mental state. Patient is also feeling weak and has difficulty with ambulation. She also has open wound behind her right calf as well as right popliteal fossa. There was a question of cellulitis. She had a high d-dimer. Lower extremity Dopplers on negative. Unfortunately CT of the chest was performed with the contrast dye was not given in the right fashion to give accurate results. At this point patient is getting treated with cefazolin. If cultures remain negative, will stop antibiotics. Please obtain wound care consult. Patient also has abnormal LFTs/transaminitis. This could be related to her Tysabri as well as carbamazepine. We'll have to discuss the Ajay Irizarry MD about Tysabri. Patient has not tried any other medication for her trigeminal neuralgia. Lamotrigine could be another choice. We will have to discuss this with Ajay Irizarry MD as well as patient's primary care doctor. DVT px: Heparin subcutaneous. Patient was seen by physical therapy and rehabilitation was recommended.
--- NOTE | 2016-09-06 14:00 | NUR ---
NURSING NOTE: COUNTERINTELLIGENCE ANALYST AND KEYBOARD INSTRUMENT REPAIRER CAME TO SPEAK WITH PT REGARDING CONDITION OF THEIR HOME HOME. PT ASKED THAT THEY SPEAK WITH HER YANI WHO WAS ALSO AT BEDSIDE.
[2016-09-06 15:05] VITALS: BP 134/76
--- NOTE | 2016-09-06 17:19 | Cons- Neurology ---
General Information and HPI Consulting Request Date of Consult: 09/06/16 Requested By: LENARD FARAH MD Reason for Consult: Falls in MS Source of Information: patient Exam Limitations: poor historian History of Present Illness: This is a pleasant 60-year-old woman with relapsing remitting MS who is currently treated with Tysabri for her MS, last infusion being last month. She has had bilateral leg weakness through the years however recently has been some deterioration has fallen multiple times. She has also been very frustrated loss of her independence and in part the falls are due to her trying to walk unsupervised at home with a walker. She knows that her anger eyes is from the fact that she not in control of her own life. She denies any recent infection or any burning when urinating and denies any need for catheterization at home. Per the records she was found in the floor of altered mental status on the day of admission. He is currently being investigated for possible cellulitis. He is not oriented to time but is to place. Allergies/Medications Allergies: Coded Allergies: NO KNOWN ALLERGIES (04/27/14) Home Med List: Aspirin (Ecotrin*) 81 MG TABLET.DR 1 TAB PO DAILY HEART HEALTH (Reported) Atorvastatin Calcium 40 MG TABLET 1 TAB PO DAILY HIGH CHOLESTROL (Reported) Carbamazepine (Tegretol XR) 100 MG TAB.ER.12H 1 TAB PO BIDP PRN TRIGEMINAL NEURALGIA (Reported) Loratadine (Claritin) 10 MG TABLET 1 TAB PO DAILY NEEDED ALLERGIES ( Reported) Natalizumab (Tysabri) 300 MG/15 ML VIAL MULTIPLE SCLEROSIS (Reported) Current Medications: Current Medications Sig/Ronak Start time Last Medication Dose Route Stop Time Status Admin Acetaminophen 650 MG Q6P PRN 09/06 0030 AC PO Aspirin Buffered 81 MG DAILY 09/06 1000 AC 09/06 PO 1009 Carbamazepine 50 MG BID 09/06 2200 AC PO Carbamazepine 100 MG BID 09/06 1000 DC 09/06 PO 1009 Cefazolin Sodium 1,000 MG Q8H 09/06 2200 AC N/A 1 UNIT IV Cefazolin Sodium 2 GM Q8H 09/06 0600 DC 09/06 N/A 1 UNIT IV 1343 Cefazolin Sodium 2 GM IQ8 09/06 0200 DC 09/06 N/A 1 UNIT IV 0526 Heparin Sodium 5,000 UNIT Q8 09/06 0600 AC 09/06 (Porcine) SC 1341 Lamotrigine 25 MG DAILY 09/06 1524 AC PO Nystatin 1 AIDA TID 09/06 0020 09/06 TOP 1009 Patient Medication 1 ED .STK-MED ONE 09/06 1343 DC Teaching ED 09/06 1344 Sodium Chloride 1,000 ML Q6H 09/05 2345 AC 09/06 IV 1008 Sodium Chloride 1,000 ML BOLUS ONE 09/05 2215 DC 09/05 IV 09/05 2314 2304 Sodium Chloride 1,000 ML BOLUS ONE 09/06 1999 DC 09/05 IV 09/05 2059 2131 Review of Systems Review of Systems: Per HPI otherwise negative. 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 Home Services at Home: None Smoking Status: Current Everyday Smoker Exam & Diagnostic Data Vital Signs and I&O Vital Signs Date Time Temp Pulse Resp B/P Pulse O2 O2 Flow FiO2 Ox Delivery Rate 09/06 1505 99.1 126 18 134/76 96 09/06 1030 122 09/06 0933 Room Air 09/06 0747 99.9 124 20 150/84 92 Room Air 09/06 0405 100.3 120 24 140/80 93 Room Air 09/06 0134 93 Room Air 09/05 2307 99.6 128 18 120/84 96 Room Air 09/05 2137 97 Room Air 09/05 2132 99.2 131 0 129/60 96 Room Air 09/05 1931 98.4 127 18 145/94 92 Room Air Intake & Output 09/06 1600 09/06 0800 09/06 0000 Intake Total 1999 1010 1000 Output Total 350 Balance 1650 1010 1000 Intake, IV 7898 807 0796 Intake, Oral 800 360 Output, Urine 350 Patient 135 lb Weight Physical Exam: General: The patient is in no distress. Pleasant and cooperative. MSE: Alert and oriented 2 (not to time). Good attention and concentration. Language is fluent with good comprehension and repetition. Cardiovascular: S1 and S2 are normal, regular rate and rhythm, and normal pedal pulses. Vision: Fundoscopic exam does not reveal any abnormalties. Visual barbour are intact. Neurological: Extra ocular movements intact, YOVANY, face is symmetric, tongue midline, uvula raises equally in the midline, V1-V3 sensation to touch is intact and equal bilaterallty, sternocleidomastoid and trapezius are strong on both sides, muscles of mastication are strong. No dysarthria noted. Motor exam reveals no abnormality of strength. Power is significantly reduced in the proximal portions of the legs bilaterally to 3 over 5. Her extremities are slightly stronger at 4+ out of 5. Sensory exam did not reveal any deficits to touch, temperature, vibration and proprioception. Reflexes are hyperreactive symmetric bilaterally. Cerebellar exam does not reveal any dysmetria. . Gait is deferred due to weakness. Last 48 Hours of Lab Results: Laboratory Tests 09/06 09/06 09/06 09/05 0650 0255 0235 2320 Chemistry Sodium (137 - 145 mmol/L) 137 Potassium (3.5 - 5.1 mmol/L) 3.9 Chloride (98 - 107 mmol/L) 103 Carbon Dioxide (22 - 30 mmol/L) 27 Anion Gap (5 - 16) 7 BUN (7 - 17 mg/dL) 16 Creatinine (0.5 - 1.0 mg/dL) 0.8 Estimated GFR (>60 ml/min) > 60 BUN/Creatinine Ratio (7 - 25 %) 20.0 Lactic Acid (0.7 - 2.1 mmol/L) 2.1 Total Bilirubin (0.2 - 1.3 mg/dL) 0.4 Direct Bilirubin (< 0.4 mg/dL) 0.3 AST (14 - 36 U/L) 916 H ALT (9 - 52 U/L) 184 H Alkaline Phosphatase (<127 U/L) 106 Ammonia (9 - 30 umol/L) < 9 L Creatine Kinase (30 - 135 U/L) > 55962 H Total Protein (6.3 - 8.2 g/dL) 5.4 L Albumin (3.5 - 5.0 g/dL) 2.9 L Coagulation D-Dimer (70 - 232 ng/ml) 2872 H Hematology CBC w Diff NO MAN DIFF REQ WBC (4.8 - 10.8 /CUMM) 11.4 H RBC (4.20 - 5.40 /CUMM) 4.84 Hgb (12.0 - 16.0 G/DL) 14.5 Hct (37 - 47 %) 44.4 MCV (81.0 - 99.0 FL) 91.8 MCH (27.0 - 31.0 PG) 30.1 RDW (11.5 - 14.5 %) 14.7 H Plt Count (130 - 400 /CUMM) 193 MPV (7.4 - 10.4 FL) 8.6 Gran % (42.2 - 75.2 %) 68.9 Lymphocytes % (20.5 - 51.1 %) 18.6 L Monocytes % (1.7 - 9.3 %) 12.2 H Eosinophils % (0 - 5 %) 0 Basophils % (0.0 - 2.0 %) 0.3 Absolute Granulocytes (1.4 - 6.5 /CUMM) 7.8 H Absolute Lymphocytes (1.2 - 3.4 /CUMM) 2.1 Absolute Monocytes (0.10 - 0.60 /CUMM) 1.4 H Absolute Eosinophils (0.0 - 0.7 /CUMM) 0 Absolute Basophils (0.0 - 0.2 /CUMM) 0 PUBS MCHC (33.0 - 37.0 G/DL) 32.8 L 03/02 2110 Chemistry Sodium (137 - 145 mmol/L) 140 Potassium (3.5 - 5.1 mmol/L) 5.1 Chloride (98 - 107 mmol/L) 99 Carbon Dioxide (22 - 30 mmol/L) 29 Anion Gap (5 - 16) 11 BUN (7 - 17 mg/dL) 18 H Creatinine (0.5 - 1.0 mg/dL) 0.8 Estimated GFR (>60 ml/min) > 60 BUN/Creatinine Ratio (7 - 25 %) 22.5 Glucose (65 - 99 mg/dL) 138 H Serum Osmolality (285 - 295 MOSM/KG) 301 H Lactic Acid (0.7 - 2.1 mmol/L) 2.2 H Calcium (8.4 - 10.2 mg/dL) 10.0 Total Bilirubin (0.2 - 1.3 mg/dL) 0.7 AST (14 - 36 U/L) 748 H ALT (9 - 52 U/L) 156 H Alkaline Phosphatase (<127 U/L) 155 H Creatine Kinase (30 - 135 U/L) > 37491 H Troponin I (< 0.11 ng/ml) 0.02 Total Protein (6.3 - 8.2 g/dL) 7.6 Albumin (3.5 - 5.0 g/dL) 4.5 Globulin (1.9 - 4.2 gm/dL) 3.1 Albumin/Globulin Ratio (1.1 - 2.2 %) 1.5 Hematology CBC w Diff NO MAN DIFF REQ WBC (4.8 - 10.8 /CUMM) 14.3 H RBC (4.20 - 5.40 /CUMM) 5.76 H Hgb (12.0 - 16.0 G/DL) 17.1 H Hct (37 - 47 %) 51.8 H MCV (81.0 - 99.0 FL) 89.8 MCH (27.0 - 31.0 PG) 29.6 RDW (11.5 - 14.5 %) 14.5 Plt Count (130 - 400 /CUMM) 206 MPV (7.4 - 10.4 FL) 7.9 Gran % (42.2 - 75.2 %) 84.6 H Lymphocytes % (20.5 - 51.1 %) 10.9 L Monocytes % (1.7 - 9.3 %) 4.4 Eosinophils % (0 - 5 %) 0 Basophils % (0.0 - 2.0 %) 0.1 Absolute Granulocytes (1.4 - 6.5 /CUMM) 12.1 H Absolute Lymphocytes (1.2 - 3.4 /CUMM) 1.6 Absolute Monocytes (0.10 - 0.60 /CUMM) 0.6 Absolute Eosinophils (0.0 - 0.7 /CUMM) 0 Absolute Basophils (0.0 - 0.2 /CUMM) 0 PUBS MCHC (33.0 - 37.0 G/DL) 33.0 Urines Urine Color (YEL,AMB,STR) YEL Urine Clarity (CLEAR) CLEAR Urine pH (5.0 - 8.0) 6.0 Ur Specific [place] (1.001 - 1.035) 1.025 Urine Protein (NEG,<30 MG/DL) 100 H Urine Ketones (NEG) 15 H Urine Nitrite (NEG) NEG Urine Bilirubin (NEG) NEG@ICTO Urine Urobilinogen (0.1 - 1.0 EU/dl) 0.2 Ur Leukocyte Esterase (NEG) NEG Ur Microscopic SEDIMENT EXAMINED Urine RBC (0 - 5 /HPF) 3-5 Ur Epithelial Cells (NONE,FEW) FEW Urine Bacteria (NEG/NONE) MOD H Urine Hemoglobin (NEG) LARGE H Urine Glucose (N MG/DL) NEG Assessment/Plan Assessment: This is a pleasant 60-year-old woman with long-standing RR MS that recently is seen a deterioration in her extremities and was eventually admitted to the hospital after being found on the floor by her in a confusional state. It is possible that she has some infection as her white count is elevated this is causing encephalopathy. In regards to her leg strength is possible that she is reaching a secondary progressive state in which duration gradually progressive. Recommendations: 1. MRI brain, T and C-spine with contrast to assess for enhancing lesions. 2. Her now should be treated for any infections like cellulitis be assessed again for possible UTI. 3. Check AILIN virus status. 4. Treat supportively. Consult Acknowledgment - Thank you for your consult request.
[2016-09-06 22:07] VITALS: BP 116/64
--- NOTE | 2016-09-07 00:38 | NUR ---
ALERT AND ORIENTED X 3. VITAL SIGNS STABLE. DENIES CHEST PAIN. + PULSES TURNED AND REPOSITIONED Q2HRS. WOUND NOTED TO BACK OF R KNEE, OPEN TO AIR. PATIENT RESTING AT THIS TIME. WILL CONTINUE TO MONITOR
[2016-09-07 06:53] VITALS: BP 104/62
--- NOTE | 2016-09-07 08:05 | PN- Housestaff ---
NATI PHELPS,BENNY 09/07/16 0804: Subjective Follow-up For: Sepsis MS Compartment syndrome Complaints: pain scale (0-10) Subjective: I saw the patient today morning She is lying on the bed, in great discomfort. Her leg appears swollen and tense, she denies any pain. Compartment syndrome is suspected and vascular surgery is consulted. Intially thought of CT scan but patient refused it as she developed pain during the procedure. At bedside right santiago compartment pressure measured with [place] device: 60mmHg measure in right santiago. Kept her NPO, took to OR in the evening for fasciotomy. Review of Systems Constitutional: Reports: see HPI. Comments: ROS negative except the above. Objective Last 24 Hrs of Vital Signs/I&O Vital Signs Date Time Temp Pulse Resp B/P Pulse O2 O2 Flow FiO2 Ox Delivery Rate 09/07 0653 98.9 115 20 104/62 94 09/07 0000 Room Air 09/06 2207 98.9 60 20 116/64 93 Room Air 09/06 1505 99.1 126 18 134/76 96 09/06 1030 122 09/06 0933 Room Air Intake & Output 09/07 1600 09/07 0800 09/07 0000 Intake Total 1200 400 Output Total Balance 1200 400 Intake, IV 1200 Intake, Oral 400 Physical Exam General Appearance: Alert, Oriented X3, Cooperative, Mild Distress Skin: No Rashes, skin breakdown below the right popliteal region HEENT: Atraumatic, PERRLA Neck: Supple Cardiovascular: Regular Rate, Normal S1, Normal S2 Lungs: Clear to Auscultation, Normal Air Movement Abdomen: Normal Bowel Sounds, Soft, No Tenderness Neurological: decreased sensation and increased tone in the anterior compartment of right leg., left lower extremity within normal limits Extremities: No Clubbing, No Cyanosis Vascular: decreaed pulsations on the right lower extremity. Current Medications: Current Medications Sig/Ronak Start time Last Medication Dose Route Stop Time Status Admin Acetaminophen 650 MG Q6P PRN 09/06 0030 AC PO Aspirin Buffered 81 MG DAILY 09/06 1000 AC 09/06 PO 1009 Carbamazepine 50 MG BID 09/06 2200 AC 09/06 PO 2159 Carbamazepine 100 MG BID 09/06 1000 DC 09/06 PO 1009 Cefazolin Sodium 1,000 MG Q8H 09/06 2245 AC 09/07 IV 0609 Cefazolin Sodium 1,000 MG Q8H 09/06 2200 CAN N/A 1 UNIT IV Cefazolin Sodium 2 GM Q8H 09/06 0600 DC 09/06 N/A 1 UNIT IV 1343 Heparin Sodium 5,000 UNIT Q8 09/06 0600 AC 09/07 (Porcine) SC 0609 Lamotrigine 25 MG DAILY 09/06 1524 AC 09/06 PO 1752 Nystatin 1 AIDA TID 09/06 0020 09/06 TOP 2159 Patient Medication 1 ED .STK-MED ONE 09/06 1343 DC Teaching ED 09/06 1344 Sodium Chloride 1,000 ML Q6H 09/05 2345 AC 09/07 IV 0610 Last 24 Hrs of Lab/Meet Results Last 24 Hrs of Labs/Mics: Laboratory Tests 09/07/16 0616: Sodium Pending, Potassium Pending, Chloride Pending, Carbon Dioxide Pending, Anion Gap Pending, BUN Pending, Creatinine Pending, BUN/Creatinine Ratio Pending , Total Bilirubin Pending, Direct Bilirubin Pending, AST Pending, ALT Pending, Alkaline Phosphatase Pending, Creatine Kinase Pending, Total Protein Pending, Albumin Pending, CBC w Diff Pending, WBC Pending, RBC Pending, Hgb Pending, Hct Pending, MCV Pending, MCH Pending, RDW Pending, Plt Count Pending, MPV Pending, PUBS MCHC Pending Assessment/Plan Assessment: This is a 60-year-old female with past medical history of hyperlipidemia and multiple sclerosis who was brought into the emergency department on 09/05/2016 after having a change of mental status and status post unwitnessed mechanical fall. #Unwitnessed mechanical fall and evidence of rhabdomyolysis * Mental status change status post fall and elevated creatinine kinase. * Likely secondary to fall. * Aggressive hydration with NS @ 150ml/hr as CK level is 32,000 and repeat CPK in a.m. * Formal neurologic consult obtained. For further recommendations on change in mental status. Compartment Syndrome * Vascular surgery consulted * CT scan is terminated due to unresolving pain * At bedside right santiago compartment pressure measured with [employer] [place] device: 60mmHg measure in right santiago. * NPO - sent to OR for fasciotomy * Significant pressure was released with the procedure however the muscles look so healthy that another source of CK leak is expected. Skin breakdown right popliteal fossa * Likely due to deconditioning of due to history of multiple sclerosis. * Ensure the area remains dry. * Keep leg elevated. * Consider wound care consult for further recommendations on long-term wound care instructions. #Transaminitis * Patient had an elevated AST 795 and ALT 163 levels. * Repeat ALT and AST in AM * Likely due to medications (carbamazipine). We will reduce the patient's dose of carbamazepine and likely try and find an alternative for trigeminal neuralgia relief. #History of multiple sclerosis * Dr Edie MD, was notified that the patient has been admitted to [facility]. Continue to [facility] on a monthly basis * Underwent MRI of head which didnt reveal any new lesions #History of trigeminal neuralgia * Patient is taking Carbamazepine (Tegretol) * Spoke with neurologist Dr Edie MD, who is open to this suggestion that we can begin to reduce Tegretol and begin the patient on Lamotrigine. Monitor that patient for any side effects including SJS. #Hyperlipidemia * Hold statin for now in the setting of elevated CPK. * Once levels normalize one can consider beginning statin again. #History of smoking * Nicotine patch 20 mg #Diet * Regular diet #DVT prophylaxis * Lovenox #Code * Full code Problem List: 1. Rhabdomyolysis 2. Altered mental status, unspecified 3. Leukocytosis 4. Edema of right lower extremity 5. Elevated CPK 6. Compartment syndrome Pain Ratin Pain Location: right lower extremity Pain Goal: Pain 4 or less Pain Plan: tylenol PRN Tomorrow's Labs & Rationales: CBC -sepsis BEP - renal function LFT - setting of transaminitis trending CK - rhabdomyolysis LINDEN PHELPS,[facility] 09/07/16 1351: Attending MD Review Statement Attending Statement Attending MD Statement: examined this patient, discuss w/resident/PA/FINANCE BUSINESS PARTNER, agreed w/resident/PA/FINANCE BUSINESS PARTNER, reviewed EMR data (avail), discussed with nursing, discussed with case mgmt, reviewed images, amended to note Attending Assessment/Plan: Patient seen and examined, not doing too well. She denies any complaints as such other than that she still feels weak but her CK levels continue to remain very high. Vital Signs Date Time Temp Pulse Resp B/P Pulse O2 O2 Flow FiO2 Ox Delivery Rate 09/07 0826 88 100/68 09/07 0653 98.9 115 20 104/62 94 09/07 0000 Room Air 09/06 2207 98.9 60 20 116/64 93 Room Air 09/06 1505 99.1 126 18 134/76 96 on exam; aox3, nad. cv; s1,s2, rrr. resp; clear. abd; soft, nt, bs+ ext; + edema rle with an open wound on posterior surface of right calf/popletial fossa. Laboratory Tests 09/07 0516 Chemistry Sodium (137 - 145 mmol/L) 139 Potassium (3.5 - 5.1 mmol/L) 4.1 Chloride (98 - 107 mmol/L) 109 H Carbon Dioxide (22 - 30 mmol/L) 26 Anion Gap (5 - 16) 5 BUN (7 - 17 mg/dL) 17 Creatinine (0.5 - 1.0 mg/dL) 0.7 Estimated GFR (>60 ml/min) > 60 BUN/Creatinine Ratio (7 - 25 %) 24.3 Total Bilirubin (0.2 - 1.3 mg/dL) 0.3 Direct Bilirubin (< 0.4 mg/dL) 0.3 AST (14 - 36 U/L) 795 H ALT (9 - 52 U/L) 163 H Alkaline Phosphatase (<127 U/L) 88 Creatine Kinase (30 - 135 U/L) > 48115 H Total Protein (6.3 - 8.2 g/dL) 4.6 L Albumin (3.5 - 5.0 g/dL) 2.4 L Hematology CBC w Diff NO MAN DIFF REQ WBC (4.8 - 10.8 /CUMM) 12.3 H RBC (4.20 - 5.40 /CUMM) 4.18 L Hgb (12.0 - 16.0 G/DL) 12.5 Hct (37 - 47 %) 37.8 MCV (81.0 - 99.0 FL) 90.4 MCH (27.0 - 31.0 PG) 30.0 RDW (11.5 - 14.5 %) 14.8 H Plt Count (130 - 400 /CUMM) 181 MPV (7.4 - 10.4 FL) 8.4 Gran % (42.2 - 75.2 %) 57.5 Lymphocytes % (20.5 - 51.1 %) 31.7 Monocytes % (1.7 - 9.3 %) 10.2 H Eosinophils % (0 - 5 %) 0.3 Basophils % (0.0 - 2.0 %) 0.3 Absolute Granulocytes (1.4 - 6.5 /CUMM) 7.1 H Absolute Lymphocytes (1.2 - 3.4 /CUMM) 3.9 H Absolute Monocytes (0.10 - 0.60 /CUMM) 1.3 H Absolute Eosinophils (0.0 - 0.7 /CUMM) 0 Absolute Basophils (0.0 - 0.2 /CUMM) 0 PUBS MCHC (33.0 - 37.0 G/DL) 33.1 A/p; 60-year-old female with past medical history significant for multiple sclerosis under treatment with the Ajay Irizarry MD, hyperlipidemia on statins admitted with altered mental state. Patient is also feeling weak and has difficulty with ambulation. She also has open wound behind her right calf as well as right popliteal fossa. She had a high d-dimer. Lower extremity Dopplers on negative. Unfortunately CT of the chest was performed with the contrast dye was not given in the right fashion to give accurate result. Right lower externally continue to be swollen and she has a very high CK. There is a question of possible compartment syndrome. We'll obtain vascular surgery consult and they're recommending CT off her right lower extremity. She was seen by neurology yesterday and they recommended MRI of brain as well as thoracic spine. Will continue the antibiotics for now and follow-up on the imaging studies. Patient to continue to work with physical therapy. Continue the IV fluids. Will monitor her CK levels. DVT prophylaxis: Heparin subcutaneous. Patient's statin was discontinued. In regards to her LFTs, they are slightly improved. We discussed with Ajay Irizarry MD yesterday about Tysabri leading to abnormal LFTs as well as Tegretol. He recommended tapering Tegretol. We have also added lamotrigine. We'll defer the use of Tysabri or some other immunomodulator agent to Dr. Henderson.
[2016-09-07 08:26] VITALS: BP 100/68
[2016-09-07 09:17] LABS: ABSOLUTE BASOPHIL COUNT 0 /CUMM (0.0-0.2); ABSOLUTE EOSINOPHIL COUNT 0 /CUMM (0.0-0.7); ABSOLUTE GRANULOCYTE CT 7.1 /CUMM (1.4-6.5); ABSOLUTE LYMPH COUNT 3.9 /CUMM (1.2-3.4); ABSOLUTE MONOCYTE COUNT 1.3 /CUMM (0.10-0.60); BASOPHIL % 0.3 % (0.0-2.0); EOSINOPHIL % 0.3 % (0-5); GRANULOCYTE % 57.5 % (42.2-75.2); MEAN CORPUSCULAR HGB CONC 33.1 G/DL (33.0-37.0); MEAN CORPUSCULAR VOLUME 90.4 FL (81.0-99.0); MEAN PLATELET VOLUME 8.4 FL (7.4-10.4); PLATELET COUNT 181 /CUMM (130-400); RBC DISTRIBUTION WIDTH 14.8 % (11.5-14.5); RED BLOOD CELL CT 4.18 /CUMM (4.20-5.40); WHITE BLOOD CELL COUNT 12.3 /CUMM (4.8-10.8)
--- NOTE | 2016-09-07 10:00 | Cons- Wound Care ---
General Information and HPI Consulting Request Date of Consult: 09/07/16 Requested By: LENARD FARAH MD Reason for Consult: Right posterior leg ulcer present on admission History of Present Illness: Patient is 60-year-old with multiple sclerosis who is had change in mental status and decreased mobility she was found on the floor for an uncertain period of time and admitted. She was found to have rhabdomyolysis with a CK of greater than 32,000 with normal renal function. She's had significant swelling of her right leg and thigh with negative Doppler ultrasound for DVT Allergies/Medications Allergies: Coded Allergies: NO KNOWN ALLERGIES (04/27/14) Home Med List: Aspirin (Ecotrin*) 81 MG TABLET.DR 1 TAB PO DAILY HEART HEALTH (Reported) Atorvastatin Calcium 40 MG TABLET 1 TAB PO DAILY HIGH CHOLESTROL (Reported) Carbamazepine (Tegretol XR) 100 MG TAB.ER.12H 1 TAB PO BIDP PRN TRIGEMINAL NEURALGIA (Reported) Loratadine (Claritin) 10 MG TABLET 1 TAB PO DAILY NEEDED ALLERGIES ( Reported) Natalizumab (Tysabri) 300 MG/15 ML VIAL MULTIPLE SCLEROSIS (Reported) Review of Systems Review of Systems: Patient denies history of peripheral vascular disease Past History Travel History Traveled to [place] past 21 day No Medical History Blood Transfusion Hx: No Neurological: multiple sclerosis, trigeminal neuralgia EENT: NONE Cardiovascular: hyperlipidemia Respiratory: NONE Gastrointestinal: NONE Hepatic: NONE Renal: NONE Musculoskeletal: NONE Psychiatric: NONE Endocrine: NONE Blood Disorders: NONE Cancer(s): NONE 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 Home Services at Home: None Smoking Status: Current Everyday Smoker Exam & Diagnostic Data Vital Signs and I&O Vital Signs Result Date Time B/P 100/68 09/07 0826 Pulse 88 09/07 0826 Pulse Ox 94 09/07 0653 Temp 98.9 09/07 0653 Resp 20 09/07 0653 O2 Delivery Room Air 09/07 0000 Intake & Output / 0000 / 1600 09/06 0800 Intake Total 400 2000 1010 Output Total 350 Balance 400 1650 1010 Intake, IV 1200 650 Intake, Oral 400 800 360 Output, Urine 350 Exam of the right leg shows distal pulses to be unable to be palpated there is an area of deep tissue injury over the right medial foot there is significant edema of the right leg with mild tenderness there is a large ulcer over the posterior right popliteal fossa and leg measuring approximately 20 x 8 cm this has appearance of a ruptured fluid-filled blister which may have been secondary to pressure injury. Over the right upper back is an area of erythema approximately 10 x 10 cm which is well may be a area of early pressure injury Assessment/Plan Impression/Plan: 60-year-old with MS was found in the floor has evidence of significant rhabdomyolysis and a edematous right leg. Raised over the possibility of myonecrosis as the cause for her edema, recommendation is made for leg elevation use of a nonadherent dressing over the presumed ruptured blister and vascular surgery evaluation, Consult Acknowledgment - Thank you for your consult request.
--- NOTE | 2016-09-07 11:38 | Cons- Vascular Surgery ---
General Information and HPI Consulting Request Date of Consult: 09/07/16 Requested By: LENARD FARAH MD Reason for Consult: Right leg swelling, possible compartment syndrome Source of Information: patient (p) History of Present Illness: 60-year-old female with right leg edema Patient has a long history of multiple sclerosis, with progressive lower extremity weakness. Recently she is trying to walk and fell. She was found at home lying on the floor by her . This occurred about 2 days ago. During her hospitalization, she is noted to have increasing edema of the right leg, and lower thigh. She has some skin breakdown on the right posterior thigh. Is unclear how long she was on the floor. She does not describe significant pain in the right leg, but motor function appears to be decreased; no decrease in sensation however. Her CPKs are also over 30,000. I have been asked to evaluate her for possible compartment syndrome. Allergies/Medications Allergies: Coded Allergies: NO KNOWN ALLERGIES (04/27/14) Home Med List: Aspirin (Ecotrin*) 81 MG TABLET.DR 1 TAB PO DAILY HEART HEALTH (Reported) Atorvastatin Calcium 40 MG TABLET 1 TAB PO DAILY HIGH CHOLESTROL (Reported) Carbamazepine (Tegretol XR) 100 MG TAB.ER.12H 1 TAB PO BIDP PRN TRIGEMINAL NEURALGIA (Reported) Loratadine (Claritin) 10 MG TABLET 1 TAB PO DAILY NEEDED ALLERGIES ( Reported) Natalizumab (Tysabri) 300 MG/15 ML VIAL MULTIPLE SCLEROSIS (Reported) Current Medications: Current Medications Sig/Ronak Start time Last Medication Dose Route Stop Time Status Admin Acetaminophen 650 MG Q6P PRN 09/06 0030 AC 09/07 PO 1020 Aspirin Buffered 81 MG DAILY 09/06 1000 AC / PO 1018 Carbamazepine 50 MG BID 09/06 2200 AC 09/07 PO 1019 Carbamazepine 100 MG BID 09/06 1000 DC 09/06 PO 1009 Cefazolin Sodium 1,000 MG Q8H 09/06 2245 AC / IV 0609 Cefazolin Sodium 1,000 MG Q8H 09/06 2200 CAN N/A 1 UNIT IV Cefazolin Sodium 2 GM Q8H 09/06 0600 DC 09/06 N/A 1 UNIT IV 1343 Heparin Sodium 5,000 UNIT Q8 09/06 0600 AC 09/07 (Porcine) SC 0609 Lamotrigine 25 MG DAILY 09/06 1524 AC 09/07 PO 1018 Nicotine 14 MG ONCE ONE 09/07 0945 DC / TOP 09/07 0946 1018 Nystatin 1 AIDA TID 09/06 0020 09/07 TOP 1019 Patient Medication 1 ED .STK-MED ONE 09/06 1343 DC Teaching ED 09/06 1344 Sodium Chloride 1,000 ML Q6H 09/05 2345 AC 09/07 IV 0610 Past History Medical History Blood Transfusion Hx: No Neurological: multiple sclerosis, trigeminal neuralgia EENT: NONE Cardiovascular: hyperlipidemia Respiratory: NONE Gastrointestinal: NONE Hepatic: NONE Renal: NONE Musculoskeletal: NONE Psychiatric: NONE Endocrine: NONE Blood Disorders: NONE Cancer(s): NONE 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 Home Services at Home: None Smoking Status: Current Everyday Smoker Review of Systems Review of Systems Constitutional: Reports: weakness. Denies: chills, fever. EENTM: Denies: mouth pain. Cardiovascular: Denies: chest pain. Respiratory: Denies: short of breath. GI: Denies: abdominal pain. Musculoskeletal: Denies: back pain. Skin: Reports: lesions (right posterior thigh and skin). Neurological/Psychological: Reports: weakness (right lower extremity weakness). Denies: numbness. Hematologic/Endocrine: Denies: bruising. Immunologic/Allergic: Denies: no symptoms. Exam & Diagnostic Data Vital Signs and I&O Vital Signs Date Time Temp Pulse Resp B/P Pulse O2 O2 Flow FiO2 Ox Delivery Rate 09/07 0826 88 100/68 09/07 0653 98.9 115 20 104/62 94 09/07 0000 Room Air 09/06 2207 98.9 60 20 116/64 93 Room Air 09/06 1505 99.1 126 18 134/76 96 Intake & Output 09/07 1600 09/07 0800 09/07 0000 09/06 1600 09/06 0800 09/06 0000 Intake Total 9603 913 0124 1010 1000 Output Total 350 Balance 5958 970 8042 1010 1000 Intake, IV 1200 8141 367 5783 Intake, Oral 400 800 360 Output, Urine 350 Patient 61.235 kg Weight Physical Exam: Well-developed well-nourished female, in no acute distress Alert and oriented 3 Sclerae anicteric Heart regular Lungs clear Abdomen soft nontender Right lower extremity 2+ PT pulse palpable Lower extremities: No cyanosis clubbing; mild right lower thigh calf edema and foot edema Neuro: Upper extremity motor equal Right lower extremity: Decreased ankle motor; positive plantar flexion, decreased dorsi flexion of right ankle; positive sensation. Last 24 Hours of Labs: Laboratory Tests 09/07 0616 Chemistry Sodium (137 - 145 mmol/L) 139 Potassium (3.5 - 5.1 mmol/L) 4.1 Chloride (98 - 107 mmol/L) 109 H Carbon Dioxide (22 - 30 mmol/L) 26 Anion Gap (5 - 16) 5 BUN (7 - 17 mg/dL) 17 Creatinine (0.5 - 1.0 mg/dL) 0.7 Estimated GFR (>60 ml/min) > 60 BUN/Creatinine Ratio (7 - 25 %) 24.3 Total Bilirubin (0.2 - 1.3 mg/dL) 0.3 Direct Bilirubin (< 0.4 mg/dL) 0.3 AST (14 - 36 U/L) 795 H ALT (9 - 52 U/L) 163 H Alkaline Phosphatase (<127 U/L) 88 Creatine Kinase (30 - 135 U/L) > 42174 H Total Protein (6.3 - 8.2 g/dL) 4.6 L Albumin (3.5 - 5.0 g/dL) 2.4 L Hematology CBC w Diff Pending WBC Pending RBC Pending Hgb Pending Hct Pending MCV Pending MCH Pending RDW Pending Plt Count Pending MPV Pending PUBS MCHC Pending Assessment/Plan Assessment/Plan 1. Right leg edema with high CPK Unclear etiology of her right leg edema. This may be due to recent fall. Her CPKs are quite high, but would be surprised that this is all coming from the right leg; her current symptoms are not entirely suggestive of compartment syndrome. She has minimal to no pain, no numbness, but there is decreased dorsiflexion of the right ankle. At this time, I would recommend a CT scan without contrast of the right calf and thigh this may reveal any underlying process. She may also benefit from pressure measurement of the right santiago prior to surgical fasciotomy. We'll follow-up after CT scan. Addendum: patient refused CT scan after MRI of back. At bedside right santiago compartment pressure measured with EMKinetics device: 60mmHg measure in right santiago. Will plan on right leg fasciotomy to release pressure. Will have open wound, and likely place VAC after a few days. Discussed with patient, and she is agreeable. Problem List: 1. Rhabdomyolysis 2. Edema of right lower extremity Consult Acknowledgment - Thank you for your consult request.
[2016-09-07 12:00] LABS: HEMATOCRIT 37.8 % (37-47)
--- NOTE | 2016-09-07 14:33 | Event Note ---
Event Note Event Note: Was called by nursing as patient has been refusing CAT scan. Went down and discussed with patient regarding our suspicion for compartment syndrome and the risk of losing the limb. Patient adamantly refused to have the test done today. She is aware of the risk. Try to call her to see if he can talk to her. Left a message. Nursing was present at the bedside during the conversation. Attending updated. We will wait for further vascular input regarding this issue. We'll readdress and convince her to get a CT scan of her legs.
--- NOTE | 2016-09-07 14:47 | MRI REPORT ---
EXAMINATION: INCOMPLETE MR BRAIN WITHOUT CONTRAST CLINICAL INFORMATION: History of multiple sclerosis. Decreased mentation status post fall. COMPARISON: MRI dated 05/24/2015. TECHNIQUE: MRI of the brain without contrast was obtained using routine sequences. Patient reportedly was in too much pain to finish the examination and refused to continue the study. Motion degraded axial/sagittal T2 FLAIR, sagittal T1, axial spin-echo T2, and axial proton density sequences obtained. FINDINGS: Moderate diffuse parenchymal volume loss is noted with ex vacuo dilatation of the lateral ventricles. Extensive chronic white matter disease is again noted low signal foci on T1-weighted imaging, consistent with the sequela of chronic demyelination. No mass effect or midline shift is evident. There are no extra-axial fluid collections seen. The major intracranial flow voids at the level of the [place] of [place] are preserved. Patchy areas of T2 hyperintense signal change are visible in the brainstem, as on prior imaging. Subtle cerebellar white matter lesions are also difficult to assess due to motion. The craniovertebral junction and marrow signal are normal. There is moderate mucosal disease in the ethmoid sinuses with mild mucosal thickening and small fluid levels in the right maxillary antrum and right sphenoid sinus. Trace fluid noted in the left mastoid air cells. IMPRESSION: Limited incomplete study with motion artifacts. Moderate parenchymal volume loss with the chronic sequela of demyelinating disease, grossly similar to the prior study. Evaluation for an acute inflammatory plaque or an underlying acute infarct cannot be ascertained on this study. Paranasal sinus disease as described.
[2016-09-07 15:15] VITALS: BP 108/60
--- NOTE | 2016-09-07 17:24 | MRI REPORT ---
EXAMINATION: MR THORACIC SPINE WITHOUT CONTRAST CLINICAL INFORMATION: 60-year-old woman with known multiple sclerosis who was found down and unconscious 2 days ago. COMPARISON: 05/24/2015 MRI TECHNIQUE: MRI of the cervical and thoracic spine was attempted with without contrast. Unfortunately, the patient was only able to tolerate a limited noncontrast MRI performed with a wide field of view through both the cervical and thoracic spine. FINDINGS: Images are partly degraded by patient motion. A large previously visualized cord lesion centered at the C2 level is again seen. Smaller lesions at C5 and C6 are not as well seen due to the decreased resolution of the scan. There are probably thoracic cord lesions around the T6, T7, and perhaps also the T10-T11 levels. Alignment remains stable, with straightening of the normal cervical lordosis and accentuation of the normal thoracic curvature. Vertebral bodies are normal in height. Degenerative endplate marrow signal and associated contour changes are seen at all levels in the cervical spine and at many levels in the mid and lower thoracic spine. Degenerative changes are worse in the cervical (versus thoracic) spine where disc osteophyte complex at multiple levels leads to mild to moderate multilevel canal stenosis. No significant canal stenosis is noted in the thoracic spine. IMPRESSION: Limited examination demonstrates some patchy areas of signal abnormality in both the cervical and thoracic spinal cord, as well as multilevel degenerative changes.
--- NOTE | 2016-09-07 19:38 | Operative Report ---
Operative/Inv Procedure Report Surgery Date: 09/07/16 Name of Procedure: Right lower leg two compartment fasciotomy Pre-Operative Diagnosis: Compartment syndrome Post-Operative Diagnosis: Compartment syndrome Estimated Blood Loss: scant Surgeon/Test Examiner: TONY HERMAN MD Anesthesia: laryngeal mask airway Complications: None Operative/Procedure Note Note: Right leg was prepped and draped in the usual sterile fashion. She received 2 g of Ancef within 30 minutes of incision. Incision was made along the right anterolateral santiago area in a longitudinal fashion. Incision was made with the blade all the way down to the fascia. The lateral compartment fascia was incised and immediately noted muscle bulging through. The fascia was further incised proximally with Metzenbaums, and distally towards the ankle. The anterior compartment fashion was also incised with 11 blade. Again the muscles in the anterior compartment were also bulging through. The fascia was further incised proximally and distally with Metzenbaums. The muscle was fully viable and looked healthy without evidence of necrosis. Electrocautery was used to get hemostasis and subcutaneous tissue. The wound was left open. Moist gauze applied and gentle multilayered dressing was applied. Patient was brought to the recovery room in good condition.
[2016-09-07 20:40] VITALS: BP 128/70
[2016-09-07 23:00] VITALS: BP 122/72
--- NOTE | 2016-09-08 00:14 | NUR ---
09/07/160 PT RETURNED FROM PACU. AOX3. LARGE ROBINSON DSG TO RLE. +CMS TO RLE. CALL DARLING IN REACH. SEE ALL CHARTING THE COMPUTER.
--- NOTE | 2016-09-08 05:27 | PN- Vascular Surgery ---
Subjective Subjective: Reports some soreness of her right lower leg. Expresses yesterday stressful for her, so she had a restful night. She's concerned about the loss of movement of her right foot/ankle. Objective Vital Signs and I&Os Vital Signs Date Time Temp Pulse Resp B/P Pulse O2 O2 Flow FiO2 Ox Delivery Rate 09/07 2300 97.3 108 20 122/72 94 Room Air 09/07 2040 97.8 100 20 128/70 95 Room Air 09/07 1558 94 / 1515 98.9 116 20 108/60 92 Room Air / 0826 88 100/68 / 0653 98.9 115 20 104/62 94 Intake & Output 09/08 0800 / 0000 / 1600 / 0800 / 0000 09/06 1600 Intake Total 300 1140 3737 226 1970 Output Total 50 400 150 350 Balance -50 -382 708 9388 400 1650 Intake, IV 509 385 7074 1200 Intake, Oral 240 400 800 Number 0 Bowel Movements Output, Urine 50 400 150 350 Physical Exam: Extremities - right lower leg wrapped in susan, which is c/d/i. toes warm. sensation remains intact. limited plantar flexion and nearly no dorsiflexion of her right foot. Assessment/Plan Assessment/Plan This 60 year old female with hx ms is POD#1 s/p right lower leg two compartment fasciotomy for compartment syndrome s/p being down for a prolonged unknown time period, ?rhabdomylosis with elevated cks, however the vascular surgeon noted there was not any muscle related damage observed during the fasciotomy release advance diet as tolerated pain control continue ancef since she now has an open surgical wound from the 2 compartment fasciotomies wet to dry dressing currently in place in those 2 open areas hep sc ok for dvt ppx monitor motor function may consider multipodus / afo plan for re-exploration in OR in the next 1-2 days with possible wound vac application at that time will d/w
[2016-09-08 06:38] VITALS: BP 116/68
--- NOTE | 2016-09-08 07:59 | PN- Housestaff ---
See Addendum Subjective Follow-up For: Sepsis MS Compartment syndrome Subjective: Patient seen and examined at bedside. She is lying comfortably in bed with no new compalints. She is s/p fasciotomy yesterday and feels improvement in the ability to move her toes. Denies any pain. Patient reports a good appetite and tolerated breakfast well witn no issues. Review of Systems Constitutional: Reports: see HPI. Objective Last 24 Hrs of Vital Signs/I&O Vital Signs Date Time Temp Pulse Resp B/P Pulse O2 O2 Flow FiO2 Ox Delivery Rate 09/08 0638 98.1 101 20 116/68 92 / 2300 97.3 108 20 122/72 94 Room Air 09/07 2040 97.8 100 20 128/70 95 Room Air 09/07 1558 94 09/07 1515 98.9 116 20 108/60 92 Room Air Intake & Output 09/08 1600 09/08 0800 09/08 0000 Intake Total 1440 300 Output Total 325 400 Balance 1115 -100 Intake, IV 1200 300 Intake, Oral 240 Number 0 Bowel Movements Output, Urine 325 400 Physical Exam General Appearance: Alert, Oriented X3, Cooperative, Mild Distress Other Physical Findings: Skin: No Rashes, skin breakdown below the right popliteal region HEENT: Atraumatic, PERRLA Neck: Supple Cardiovascular: Regular Rate, Normal S1, Normal S2 Lungs: Clear to Auscultation, Normal Air Movement Abdomen: Normal Bowel Sounds, Soft, No Tenderness Neurological: decreased sensation and increased tone in the anterior compartment of right leg., left lower extremity within normal limits Extremities: No Clubbing, No Cyanosis Vascular: decreaed pulsations on the right lower extremity. Current Medications: Current Medications Sig/Ronak Start time Last Medication Dose Route Stop Time Status Admin Acetaminophen 650 MG Q6P PRN 09/07 1945 AC 09/08 PO 0002 Acetaminophen 650 MG .STK-MED ONE 09/07 1005 DC PO 09/07 1006 Acetaminophen 650 MG Q6P PRN 09/06 0030 DC 09/07 PO 1020 Aspirin Buffered 81 MG DAILY 09/08 1000 AC PO Aspirin Buffered 81 MG DAILY 09/06 1000 DC 09/07 PO 1018 Carbamazepine 50 MG BID 09/07 2200 AC 09/07 PO 2347 Carbamazepine 50 MG BID 09/06 2200 DC / PO 1019 Cefazolin Sodium 1,000 MG Q8H 09/08 0300 AC 09/08 IV 0318 Cefazolin Sodium 1,000 MG Q8H 09/06 2245 DC 03 IV 1623 Docusate Sodium 100 MG BID 09/07 2200 AC 09/07 PO 2239 Fentanyl Citrate 250 MCG .STK-MED ONE 09/07 1816 DC IM 09/07 1817 Heparin Sodium 5,000 UNIT Q8 09/07 2200 AC 09/08 (Porcine) SC 0552 Heparin Sodium 5,000 UNIT Q8 09/06 0600 DC 09/07 (Porcine) SC 0609 Lamotrigine 25 MG DAILY 09/08 1000 AC PO Lamotrigine 25 MG DAILY 09/06 1524 DC 09/07 PO 1018 Lidocaine 20 ML .STK-MED ONE 09/07 1459 DC IA 09/07 1500 Midazolam HCl 2 MG .STK-MED ONE 09/07 1816 DC IM 09/07 1817 Morphine Sulfate 2 MG Q 3-4 HRS PRN PRN 09/07 1945 AC IV Morphine Sulfate 4 MG Q2-3 HRS NEEDED.. 09/07 1945 AC IV Morphine Sulfate 6 MG Q2-3 HRS NEEDED.. 09/07 1945 AC IV Morphine Sulfate 2 MG ONCE ONE 09/07 1345 DC 03/04 IV 0304 1346 1405 Nicotine 14 MG ONCE ONE 09/07 0945 DC 03/ TOP /04 0946 1018 Nystatin 1 AIDA TID 09/07 2200 AC 09/07 TOP 2241 Nystatin 1 AIDA TID 09/06 0020 DC 09/07 TOP 1756 Sodium Chloride 1,000 ML Q6H 09/07 1945 AC 09/08 IV 0646 Sodium Chloride 1,000 ML Q6H /02 2345 DC 03/04 IV 1458 Last 24 Hrs of Lab/Meet Results Last 24 Hrs of Labs/Mics: Laboratory Tests 09/08/16 0630: Sodium Pending, Potassium Pending, Chloride Pending, Carbon Dioxide Pending, Anion Gap Pending, BUN Pending, Creatinine Pending, BUN/Creatinine Ratio Pending , Total Bilirubin Pending, Direct Bilirubin Pending, AST Pending, ALT Pending, Alkaline Phosphatase Pending, Creatine Kinase Pending, Total Protein Pending, Albumin Pending, CBC w Diff Pending, WBC Pending, RBC Pending, Hgb Pending, Hct Pending, MCV Pending, MCH Pending, RDW Pending, Plt Count Pending, MPV Pending, PUBS MCHC Pending Assessment/Plan Assessment: This is a 60-year-old female with past medical history of hyperlipidemia and multiple sclerosis who was brought into the emergency department on 09/05/2016 after having a change of mental status and status post unwitnessed mechanical fall. #Unwitnessed mechanical fall and evidence of rhabdomyolysis Mental status change status post fall and elevated creatinine kinase. Likely secondary to fall. CPK trending down. * Cont IV hydration with NS @ 150ml/hr * Formal neurologic consult obtained. For further recommendations on change in mental status. Compartment Syndrome At bedside right santiago compartment pressure measured with [place] device: 60mmHg measure in right santiago. * Remains stable s/p fasciotomy on 09/07. Significant pressure was released with the procedure however the muscles look so healthy that another source of CK leak is expected. * CT scan is terminated due to unresolving pain * Cont wound care Skin breakdown right popliteal fossa * Likely due to deconditioning of due to history of multiple sclerosis. * Ensure the area remains dry. * Keep leg elevated. * Consider wound care consult for further recommendations on long-term wound care instructions. #Transaminitis Likely due to medications (carbamazipine). Decreased patient's dose of carbamazepine. Will find an alternative for trigeminal neuralgia relief. * AST and ALT trending down to 745 & 135 respectively * Cont to trend the LFTs #History of multiple sclerosis * Dr Edie MD, was notified that the patient has been admitted to [facility]. Continue to [facility] on a monthly basis * Underwent MRI of head which didnt reveal any new lesions #History of trigeminal neuralgia * Patient is taking Carbamazepine (Tegretol) * Spoke with neurologist Dr Edie MD, who is open to this suggestion that we can begin to reduce Tegretol and begin the patient on Lamotrigine. Monitor that patient for any side effects including SJS. #Hyperlipidemia * Hold statin for now in the setting of elevated CPK. * Once levels normalize one can consider beginning statin again. #History of smoking * Nicotine patch 20 mg #Diet * Regular diet #DVT prophylaxis * Lovenox #Code * Full code Problem List: 1. Altered mental status, unspecified 2. Rhabdomyolysis 3. Leukocytosis 4. Transaminitis 5. Elevated CPK 6. Cellulitis 7. Sepsis 8. Edema of right lower extremity 9. Compartment syndrome Pain Ratin Pain Location: RLE Pain Goal: Pain 4 or less Pain Plan: tylenol PRN Tomorrow's Labs & Rationales: CBC -sepsis BEP - renal function LFT - setting of transaminitis trending CK - rhabdomyolysis Tomorrow's Labs & Rationales: CBC -sepsis BEP - renal function LFT - setting of transaminitis trending CK - rhabdomyolysis
[2016-09-08 08:16] LABS: ABSOLUTE BASOPHIL COUNT 0 /CUMM (0.0-0.2); ABSOLUTE EOSINOPHIL COUNT 0.1 /CUMM (0.0-0.7); ABSOLUTE GRANULOCYTE CT 5.8 /CUMM (1.4-6.5); ABSOLUTE LYMPH COUNT 3.6 /CUMM (1.2-3.4); ABSOLUTE MONOCYTE COUNT 0.9 /CUMM (0.10-0.60); BASOPHIL % 0.2 % (0.0-2.0); EOSINOPHIL % 1.4 % (0-5); GRANULOCYTE % 55.5 % (42.2-75.2); HEMATOCRIT 34.9 % (37-47); MEAN CORPUSCULAR HGB 29.9 PG (27.0-31.0); MEAN CORPUSCULAR HGB CONC 32.9 G/DL (33.0-37.0); MEAN CORPUSCULAR VOLUME 90.8 FL (81.0-99.0); MEAN PLATELET VOLUME 8.1 FL (7.4-10.4); PLATELET COUNT 205 /CUMM (130-400); RBC DISTRIBUTION WIDTH 15.1 % (11.5-14.5); RED BLOOD CELL CT 3.85 /CUMM (4.20-5.40); WHITE BLOOD CELL COUNT 10.5 /CUMM (4.8-10.8)
--- NOTE | 2016-09-08 10:02 | PN- Wound Care ---
Subjective Subjective: Patient was found to have compartment syndrome and underwent fasciotomy. She continues to drain significant serous fluid. Objective Vital Signs and I&Os Vital Signs Result Date Time Pulse Ox 92 09/08 637 B/P 116/68 09/08 637 Temp 98.1 09/08 637 Pulse 101 09/08 637 Resp 20 09/08 637 O2 Delivery Room Air 09/07 2300 Intake & Output 09/08 0000 09/07 1600 09/07 0800 Intake Total 300 1140 1200 Output Total 400 150 Balance -913 283 5165 Intake, IV 267 245 8393 Intake, Oral 240 Number 0 Bowel Movements Output, Urine 400 150 Right lower extremity remains with boggy edema Sumit wrap is in place there is significant serous drainage. Impression/Plan Impression/Plan Impression/Plan: 60-year-old with MS was found in the floor has evidence of significant rhabdomyolysis and a edematous right leg. Raised over the possibility of myonecrosis as the cause for her edema, recommendation is made for leg elevation use of a nonadherent dressing over the presumed ruptured blister and vascular surgery evaluation, patient is status post fasciotomy continue nonadherent dressing compression and maximal leg elevation
--- NOTE | 2016-09-08 13:53 | PN- Vascular Surgery ---
Surgical Brief Attending Note Brief Attending Note: Status post right leg to compartment fasciotomy anterolateral compartments. Patient feeling well. Sensation in right foot is improved, and motor function is somewhat improved. Pain minimal. CPK improving, s/p fasciotomy. Laboratory Tests 09/08 0630 Chemistry Sodium (137 - 145 mmol/L) 139 Potassium (3.5 - 5.1 mmol/L) 3.8 Chloride (98 - 107 mmol/L) 111 H Carbon Dioxide (22 - 30 mmol/L) 24 Anion Gap (5 - 16) 4 L BUN (7 - 17 mg/dL) 13 Creatinine (0.5 - 1.0 mg/dL) 0.6 Estimated GFR (>60 ml/min) > 60 BUN/Creatinine Ratio (7 - 25 %) 21.7 Total Bilirubin (0.2 - 1.3 mg/dL) 0.3 Direct Bilirubin (< 0.4 mg/dL) 0.3 AST (14 - 36 U/L) 747 H ALT (9 - 52 U/L) 135 H Alkaline Phosphatase (<127 U/L) 86 Creatine Kinase (30 - 135 U/L) 14033 H Total Protein (6.3 - 8.2 g/dL) 4.6 L Albumin (3.5 - 5.0 g/dL) 2.3 L Hematology CBC w Diff NO MAN DIFF REQ WBC (4.8 - 10.8 /CUMM) 10.5 RBC (4.20 - 5.40 /CUMM) 3.85 L Hgb (12.0 - 16.0 G/DL) 11.5 L Hct (37 - 47 %) 34.9 L MCV (81.0 - 99.0 FL) 90.8 MCH (27.0 - 31.0 PG) 29.9 RDW (11.5 - 14.5 %) 15.1 H Plt Count (130 - 400 /CUMM) 205 MPV (7.4 - 10.4 FL) 8.1 Gran % (42.2 - 75.2 %) 55.5 Lymphocytes % (20.5 - 51.1 %) 34.0 Monocytes % (1.7 - 9.3 %) 8.9 Eosinophils % (0 - 5 %) 1.4 Basophils % (0.0 - 2.0 %) 0.2 Absolute Granulocytes (1.4 - 6.5 /CUMM) 5.8 Absolute Lymphocytes (1.2 - 3.4 /CUMM) 3.6 H Absolute Monocytes (0.10 - 0.60 /CUMM) 0.9 H Absolute Eosinophils (0.0 - 0.7 /CUMM) 0.1 Absolute Basophils (0.0 - 0.2 /CUMM) 0 PUBS MCHC (33.0 - 37.0 G/DL) 32.9 L Vital Signs Date Time Temp Pulse Resp B/P Pulse O2 O2 Flow FiO2 Ox Delivery Rate 03/05 0800 92 03/05 0638 98.1 101 20 116/68 92 03/04 2300 97.3 108 20 122/72 94 Room Air 03/04 2040 97.8 100 20 128/70 95 Room Air 03/04 1558 94 03/04 1515 98.9 116 20 108/60 92 Room Air EXAM RIGHT LE: foot warm, pink; good sensation; minimal dorsiflexion (better than preop). santiago wound muscle healthy, viable A/P: s/p Right santiago fasciotomy CPK's decreasing. Continue moist betadine/saline guaze daily. Continue IV abx for open wound. SQ heparin. Possible wound VAC mid-week.
[2016-09-08 14:33] VITALS: BP 120/71
[2016-09-08 21:23] VITALS: BP 140/68
[2016-09-08 23:42] VITALS: BP 128/78
[2016-09-09 05:56] VITALS: BP 140/78
--- NOTE | 2016-09-09 06:26 | PN- Housestaff ---
See Addendum Subjective Follow-up For: Compartment syndrome s/p fasciotomy MS Subjective: Ms Evans was seen and examined this morning. She is resting comfortably in bed and denies no active issues overnight. Patient states that she has been able to get adequate rest. She states that her leg feels comfortable and does not complain of any pain. Patient reports slightly decreased leg movements on the right, however, she does not feel these are restricted. Patient does report a subjective cough with normal sputum production. Patient denies any fever, chills, nausea, vomiting. Review of Systems Constitutional: Reports: see HPI. Objective Last 24 Hrs of Vital Signs/I&O Vital Signs Date Time Temp Pulse Resp B/P Pulse O2 O2 Flow FiO2 Ox Delivery Rate 09/09 0556 97.4 95 19 140/78 97 09/08 2342 97.8 73 20 128/78 92 Room Air 09/08 2123 140/68 / 1433 99.9 107 20 120/71 93 Room Air Intake & Output 09/09 1600 09/09 0800 09/09 0000 Intake Total 1200 Output Total 100 200 Balance 1100 -200 Intake, IV 1200 Output, Urine 100 200 Physical Exam General Appearance: Alert, Oriented X3, Cooperative HEENT: Mucous Membr. moist/pink Cardiovascular: Normal S1, Normal S2 Lungs: Expiratory Wheezing Abdomen: Normal Bowel Sounds, Soft, No Tenderness Neurological: Normal Gait, Normal Tone, Sensation Intact Extremities: Right Leg, s/p Fasciotomy. 12cm X 4 cm. Draining Serosanguinous fluid. Clean Wound Edge margins. No signs of infection or erythema. Good Capillary refill noted. Patient is able to plantar and dorsiflex. Current Medications: Current Medications Sig/Ronak Start time Last Medication Dose Route Stop Time Status Admin Acetaminophen 650 MG Q6P PRN 09/07 1945 AC 09/08 PO 0002 Aspirin Buffered 81 MG DAILY 09/08 1000 AC 09/08 PO 0950 Carbamazepine 50 MG BID 09/07 2200 AC / PO 2127 Cefazolin Sodium 1,000 MG Q8H 09/08 0300 AC 09/09 IV 0245 Docusate Sodium 100 MG BID 09/07 2200 AC / PO 2124 Heparin Sodium 5,000 UNIT Q8 09/07 220 AC 09/09 (Porcine) SC 0501 Lamotrigine 25 MG DAILY 03/05 1000 AC 09/08 PO 0950 Morphine Sulfate 2 MG Q 3-4 HRS PRN PRN 09/07 1944 09/08 IV 2126 Morphine Sulfate 4 MG Q2-3 HRS NEEDED.. 09/07 1944 09/09 IV 0501 Morphine Sulfate 6 MG Q2-3 HRS NEEDED.. 09/07 1944 IV Nystatin 1 AIDA TID 09/07 2200 09/08 TOP 2125 Sodium Chloride 1,000 ML Q6H 09/07 1944 09/09 IV 0810 Last 24 Hrs of Lab/Meet Results Last 24 Hrs of Labs/Mics: Laboratory Tests 09/09/16 0704: Total Bilirubin 0.4, Direct Bilirubin 0.4, AST 546 H, ALT 98 H, Alkaline Phosphatase 88, Creatine Kinase Pending, Total Protein 4.7 L, Albumin 2.3 L, CBC w Diff Pending, WBC Pending, RBC Pending, Hgb Pending, Hct Pending, MCV Pending, MCH Pending, RDW Pending, Plt Count Pending, MPV Pending, PUBS MCHC Pending Assessment/Plan Assessment: This is a 60-year-old female with past medical history of hyperlipidemia and multiple sclerosis who was brought into the emergency department on 09/05/2016 after having a change of mental status and status post unwitnessed mechanical fall. #Unwitnessed mechanical fall and evidence of rhabdomyolysis Mental status change status post fall and elevated creatinine kinase. Likely secondary to fall. CPK trending down. * Cont IV hydration with NS @ 150ml/hr * Formal neurologic consult obtained. For further recommendations on change in mental status. Compartment Syndrome At bedside right santiago compartment pressure measured with Roberth device: 60mmHg measure in right santiago. Likely due to soft tissue injury in the setting of prolonged limb compression in the setting of a fall s/p history of multiple sclerosis. Difference between diastolic (68-60) intracompartment pressure on 09/07: 8mmhg. * Remains stable s/p fasciotomy on 09/09. Significant pressure was released with the procedure however the muscles look healthy. * CT scan is terminated due to unresolving pain * Cont wound care, patient will likely have a wound VAC placed on 09/10/2016. In the mean time WBAT. Encouarge ambulation. Skin breakdown right popliteal fossa * Likely due to deconditioning of due to history of multiple sclerosis. * Ensure the area remains dry. * Keep leg elevated. * Continue dressing compression and leg elevation. #Transaminitis Likely due to medications (carbamazipine). Decreased patient's dose of carbamazepine. Will find an alternative for trigeminal neuralgia relief. * AST and ALT trending down to 745 & 135 respectively-->546 and 98 * Cont to trend the LFTs in AM. #History of multiple sclerosis * Dr Edie MD, was notified that the patient has been admitted to [facility]. Continue to [facility] on a monthly basis. Spoke with Dr Edie MD, will likely visit the patient today. * Underwent MRI of head which didnt reveal any new lesions #History of trigeminal neuralgia * Patient is taking Carbamazepine (Tegretol), this was further reduced today to 50 mg daily (from BID). Patient was kept informed. * Spoke with neurologist Dr Edie MD, who is open to this suggestion that we can begin to reduce Tegretol and begin the patient on Lamotrigine. Monitor that patient for any side effects including SJS. #Hyperlipidemia * Hold statin for now in the setting of elevated CPK. * Once levels normalize one can consider beginning statin again. #History of smoking * Nicotine patch 20 mg #Diet * Regular diet #DVT prophylaxis * Lovenox #Code * Full code Problem List: 1. Compartment syndrome 2. Edema of right lower extremity 3. Sepsis 4. Elevated CPK 5. Transaminitis 6. Leukocytosis Pain Ratin Pain Location: No Pain reported Pain Goal: Remain pain free Pain Plan: Morphine Sulphate Tomorrow's Labs & Rationales: Hepatic Function Panel: Due to transaminitis. Trending AST and ALT CK: Monitor response to treatment following ACS
--- NOTE | 2016-09-09 08:15 | PN- Wound Care ---
Subjective Subjective: She feels more comfortable. She continues to have copious serous drainage dressing will be changed this morning by surgery CpK is slowly decreasing Objective Vital Signs and I&Os Vital Signs Result Date Time Pulse Ox 97 09/10 555 B/P 140/78 09/10 555 Temp 97.4 09/10 555 Pulse 95 09/10 555 Resp 19 09/10 555 O2 Delivery Room Air 09/08 2342 Intake & Output 09/09 0000 09/08 1600 09/08 0800 Intake Total 1440 Output Total 200 325 Balance -200 1115 Intake, IV 1200 Intake, Oral 240 Output, Urine 200 325 Patient remains afebrile she appears to have good dorsiflexion of her foot there is still boggy edema wound will be examined when her dressing is changed she will likely need a wound VAC and continued compression and elevation Impression/Plan Impression/Plan Impression/Plan: 60-year-old with MS was found in the floor has evidence of significant rhabdomyolysis and a edematous right leg. Raised over the possibility of myonecrosis as the cause for her edema, recommendation is made for leg elevation use of a nonadherent dressing over the presumed ruptured blister and vascular surgery evaluation, patient is status post fasciotomy continue nonadherent dressing compression and maximal leg elevation
[2016-09-09 08:54] LABS: ABSOLUTE BASOPHIL COUNT 0 /CUMM (0.0-0.2); ABSOLUTE EOSINOPHIL COUNT 0.1 /CUMM (0.0-0.7); ABSOLUTE GRANULOCYTE CT 5.5 /CUMM (1.4-6.5); ABSOLUTE LYMPH COUNT 3.2 /CUMM (1.2-3.4); BASOPHIL % 0.4 % (0.0-2.0); EOSINOPHIL % 1.3 % (0-5); GRANULOCYTE % 55.3 % (42.2-75.2); HEMATOCRIT 35.5 % (37-47); MEAN CORPUSCULAR HGB 30.3 PG (27.0-31.0); MEAN CORPUSCULAR HGB CONC 33.6 G/DL (33.0-37.0); MEAN CORPUSCULAR VOLUME 90.3 FL (81.0-99.0); MEAN PLATELET VOLUME 7.9 FL (7.4-10.4); PLATELET COUNT 252 /CUMM (130-400); RBC DISTRIBUTION WIDTH 15.1 % (11.5-14.5); RED BLOOD CELL CT 3.93 /CUMM (4.20-5.40); WHITE BLOOD CELL COUNT 9.9 /CUMM (4.8-10.8)
--- NOTE | 2016-09-09 09:00 | PN- General Surgery ---
Subjective Subjective: Patient's pain has decreased, she is feeling better. She has a good appetite. She denies worsening pain, numbness, weakness. Objective Vital Signs and I&Os Vital Signs Date Time Temp Pulse Resp B/P Pulse O2 O2 Flow FiO2 Ox Delivery Rate 09/09 0556 97.4 95 19 140/78 97 09/08 2342 97.8 73 20 128/78 92 Room Air 09/08 2123 140/68 09/08 1433 99.9 107 20 120/71 93 Room Air Intake & Output 09/09 1600 09/09 0800 09/09 0000 09/08 1600 09/08 0800 09/08 0000 Intake Total 1200 1440 300 Output Total 100 200 325 400 Balance 1100 -200 1115 -100 Intake, IV 1200 1200 300 Intake, Oral 240 Number 0 Bowel Movements Output, Urine 100 200 325 400 CK down to 15,000 from 28,000 yesterday Physical Exam: Well-developed well-nourished no apparent distress. Elderly female, looks stated age HEENT: Atraumatic, Neck: Supple Respiratory: No respiratory distress Neuro: Alert and oriented x3 Psych: Mood affect normal, normal memory normal judgment. Skin: Warm and dry, no rash on exposed skin Extremity: Right lower extremity, dressing changed. Moderate thin serous discharge noted. Muscle bulging noted at incision site lateral lower leg. Wound edge margins are clean. No signs of infection, no surrounding erythema. There is mild edema of the right lower leg and mild to moderate edema of the right foot. She is able to wiggle her toes, she can plantarflex. Dorsiflex is limited but active. She has no pain with passive motion of the toes or the foot or ankle. Foot is pink and warm with good capillary refill. Assessment/Plan Assessment/Plan Postop day 2 status post lateral and anterior fasciotomies secondary to compartment syndrome. -Dressing changed today, moist Betadine and saline dressing. Wound is looking good, no signs of infection, edema in the leg is decreasing, continue elevation and Sumit wrap. Function and sensation of the foot is improving. -Consider wound VAC tomorrow -Rhabdomyolysis management per medicine -Continue kefzol -Continue DVT prophylaxis with heparin Core Measures/Miscellaneous Venous Thromboembolism VTE Risk Factors: Age > 40, Surgery VTE Contraindications: No Contraindications VTE Diagnosis: No VTE Type: NONE VTE Confirmed by (Test): NONE Beta Danyell Is Beta Danyell a Home Med? No Antibiotics Is Patient on Antibiotics? Yes If Yes: prophylaxis
--- NOTE | 2016-09-09 13:39 | Patient Discharge Instructions ---
Discharge Instructions General Discharge Information You were seen/treated for: Multiple sclerosis Cellulitis Compartment syndrome You had these procedures: Right lower leg two compartment fasciotomy Watch for these problems: Fever, nausea, vomiting, chills, weakness, increased generalized edema. Palpitations. Chest pain. Shortness of breath. Excessive pain or decreased mobility from you wound. If you have any adverse reactions from any of the medications prescribed please inform your primary care physician and you may be required to come back to the emergency department. Thank you for allowing us to be part of your care. Special Instructions: - Please see your PCP within one week of discharge. - Please see your Neurologist (Dr Irizarry) within one week of discharge. You will need to speak to him about your medications in the setting of increased liver enzymes. You also need to speak with him specifically regarding your Natalizumab (taysabri) owing to recent elevation in your liver enzymes. -Please follow up with Dr Mcqueen on 09/20/2016, for further therapy for your leg. We have provided you with a referral. - Please Keep your leg elevated. Apply Sumit bandages to your foot and ankle due to swelling. Your wound vac change needs to be changed every three days. -Please follow up for an appointment with the talent specialist Dr Kennedy on 09/19/2016. We have provided you with a referral. -In four weeks (10/10/2016), please follow up with the Urologist, Dr Luu for urodynamic studies. We have provided you with a referral. Diet Recommended Diet: Heart Healthy Activity Full Activity/No Limits: No Activity Self Limited: Yes (As Tolerated) Acute Coronary Syndrome Inclusion Criteria At DC or during hospital stay patient has or had the following: ACS DIAGNOSIS No Discharge Core Measures Meds if any: Prescribed or Continued at Discharge Meds if any: NOT Prescribed or Continued at Discharge Congestive Heart Failure Inclusion Criteria At DC or during hospital stay patient has or had the following: CHF DIAGNOSIS No Discharge Core Measures Meds if any: Prescribed or Continued at Discharge Meds if any: NOT Prescribed or Continued at Discharge Cerebrovascular accident Inclusion Criteria At DC or during hospital stay patient has or had the following: CVA/TIA Diagnosis No Discharge Core Measures Meds if any: Prescribed or Continued at Discharge Meds if any: NOT Prescribed or Continued at Discharge Venous thromboembolism Inclusion Criteria VTE Diagnosis No VTE Type NONE VTE Confirmed by (Test) NONE Discharge Core Measures - Per Current guidelines, there needs to be overlap - treatment for the first 5 days of Warfarin therapy. - If discharged on Warfarin prior to 5 days of - overlap therapy, the patient will need to be - assessed for post discharge needs including - *Post discharge parental anticoagulation - *Warfarin and/or parental anticoagulation education - *Follow up date to check INR post discharge At least 5 days overlap therapy as Inpatient No Meds if any: Prescribed or Continued at Discharge Note: Overlap Therapy is Warfarin and Anticoagulant Meds if any: NOT Prescribed or Continued at Discharge
[2016-09-09 15:04] VITALS: BP 154/80
[2016-09-09 22:15] VITALS: BP 144/82
--- NOTE | 2016-09-10 05:22 | NUR ---
NURSE NOTE: PT [facility] SEEMS TO BE DEFLATED, ALTHEA ASSIGNMENT MANAGER MADE AWARE. SHE CALLED [facility] AND SAID THATTHEY WOULD BE IN TO SERVICE WITHIN COUPLE HOURS. OFFERED PT TO BE TRANSFERED TO REGULAR BED AND PT REFUSED AT THIS TIME.
--- NOTE | 2016-09-10 05:56 | PN- Housestaff ---
ROSCOE PHELPS,[facility] 09/10/16 0555: Subjective Follow-up For: Compartment Syndrome AMS MS Subjective: Ms Evans was seen and examined this morning. She reports no issues. She reports that she has comfortable overnight and states that she is in no active pain. Patient does express her concern that she is unable to dorsiflex her right foot. Patient states that this is likely owing to the ROBINSON bandage. Patient denies any fever, chills, nausea, vomiting. Patient expresses her interest to be able to be out of bed and ambulate. Review of Systems Constitutional: Reports: see HPI. Objective Last 24 Hrs of Vital Signs/I&O Vital Signs Date Time Temp Pulse Resp B/P Pulse O2 O2 Flow FiO2 Ox Delivery Rate 09/10 0000 Room Air 09/09 2215 98 20 144/82 94 Room Air 09/09 1504 98.2 101 20 154/80 94 Room Air 09/09 0800 94 Room Air 09/09 0556 97.4 95 19 140/78 97 Intake & Output 09/10 0800 09/10 0000 09/09 1600 Intake Total 930 1570 Output Total 600 Balance 930 970 Intake, IV 450 1050 Intake, Oral 480 520 Number 0 Bowel Movements Output, Urine 600 Patient 61.235 kg Weight Physical Exam General Appearance: Alert, Oriented X3, Cooperative Cardiovascular: Normal S1, Normal S2 Lungs: Clear to Auscultation Abdomen: Normal Bowel Sounds, Soft, No Tenderness Neurological: Normal Speech Extremities: No Cyanosis, No Edema, RLE continues to express serosanguinous discharge. Foot warm and good capillary refill. Wound Vac in Place Current Medications: Current Medications Sig/Ronak Start time Last Medication Dose Route Stop Time Status Admin Acetaminophen 650 MG Q6P PRN 09/07 1945 AC 09/10 PO 0147 Aspirin Buffered 81 MG DAILY 09/08 1000 AC 09/09 PO 0936 Bisacodyl 5 MG DAILY PRN 09/09 0945 AC 09/09 PO 2129 Carbamazepine 50 MG DAILY 09/09 1000 AC 09/09 PO 0938 Carbamazepine 50 MG BID 09/07 220 DC 09/08 PO 212 Cefazolin Sodium 1,000 MG Q8H 09/08 0300 AC 09/10 IV 0326 Docusate Sodium 100 MG BID 09/07 220 AC 09/09 PO 2130 Heparin Sodium 5,000 UNIT Q8 09/07 2199 AC 09/10 (Porcine) SC 0506 Lamotrigine 25 MG DAILY 09/08 1000 AC 09/09 PO 0936 Morphine Sulfate 2 MG Q 3-4 HRS PRN PRN 09/07 1944 09/08 IV 2126 Morphine Sulfate 4 MG Q2-3 HRS NEEDED.. 09/07 1944 09/09 IV 0501 Morphine Sulfate 6 MG Q2-3 HRS NEEDED.. 09/07 1944 IV Nystatin 1 AIDA TID 09/07 2199 09/09 TOP 2130 Patient Medication 1 ED .STK-MED ONE 09/09 1403 [place] Teaching ED 09/09 1404 Senna 187 MG AT BEDTIME PRN 09/09 0915 PO Sodium Chloride 1,000 ML Q6H 09/07 1944 09/10 IV 0506 Last 24 Hrs of Lab/Meet Results Last 24 Hrs of Labs/Mics: Laboratory Tests 09/09/16 0704: Total Bilirubin 0.4, Direct Bilirubin 0.4, AST 546 H, ALT 98 H, Alkaline Phosphatase 88, Creatine Kinase 74416 H, Total Protein 4.7 L, Albumin 2.3 L, CBC w Diff NO MAN DIFF REQ, RBC 3.93 L, MCV 90.3, MCH 30.3, RDW 15.1 H, MPV 7.9, Gran % 55.3, Lymphocytes % 32.5, Monocytes % 10.5 H, Eosinophils % 1.3, Basophils % 0.4, Absolute Granulocytes 5.5, Absolute Lymphocytes 3.2, Absolute Monocytes 1.0 H, Absolute Eosinophils 0.1, Absolute Basophils 0, PUBS MCHC 33.6 Assessment/Plan Assessment: This is a 60-year-old female with past medical history of hyperlipidemia and multiple sclerosis who was brought into the emergency department on 09/05/2016 after having a change of mental status and status post unwitnessed mechanical fall. #Unwitnessed mechanical fall and evidence of rhabdomyolysis Mental status change status post fall and elevated creatinine kinase. Likely secondary to fall. CPK trending down. CPK:[id number] * Cont IV hydration with NS @ 150ml/hr. We will stop after one more additional Bag. * Formal neurologic consult obtained. For further recommendations on change in mental status. Compartment Syndrome At bedside right santiago compartment pressure measured with MediSens device: 60mmHg measure in right santiago. Likely due to soft tissue injury in the setting of prolonged limb compression in the setting of a fall s/p history of multiple sclerosis. Difference between diastolic (68-60) intracompartment pressure on 09/07: 8mmhg. * Remains stable s/p fasciotomy on 09/09. Significant pressure was released with the procedure however the muscles look healthy. * CT scan is terminated due to unresolving pain Skin breakdown right popliteal fossa * Likely due to deconditioning of due to history of multiple sclerosis. * Ensure the area remains dry. * Keep leg elevated. * Continue dressing compression and leg elevation, wound VAC placed this am. Patient reports no issues. #Transaminitis Likely due to medications (carbamazipine). Decreased patient's dose of carbamazepine. Will find an alternative for trigeminal neuralgia relief. * AST and ALT trending down to 745 & 135 respectively-->546 and 98 -->342 and 71 * Cont to trend the LFTs in AM. #History of multiple sclerosis * Dr Edie MD, was notified that the patient has been admitted to [facility]. Continue to [facility] on a monthly basis. Spoke with Dr Edie MD, will likely visit the patient today. * Underwent MRI of head which didnt reveal any new lesions #History of trigeminal neuralgia * Patient is taking Carbamazepine (Tegretol), this was further reduced today to 50 mg daily (from BID). Patient was kept informed, we will reduce to 25 mg tomorrow 09/11/2016. * Spoke with neurologist Dr Edie MD, who is open to this suggestion that we can begin to reduce Tegretol and begin the patient on Lamotrigine. Monitor that patient for any side effects including SJS. #Hyperlipidemia * Hold statin for now in the setting of elevated CPK. * Once levels normalize one can consider beginning statin again. #History of smoking * Nicotine patch 20 mg #Diet * Regular diet #DVT prophylaxis * Lovenox #Code * Full code Problem List: 1. Compartment syndrome 2. Edema of right lower extremity 3. Elevated CPK 4. Transaminitis Pain Ratin Pain Location: No Pain Reported Pain Goal: Remain pain free Pain Plan: Morphine Tomorrow's Labs & Rationales: BEP: Monitor Electrolytes in the setting CK: Monitor CK in the setting of rhabdomyolysis LINDEN PHELPS,[place] 09/10/16 1333: Attending MD Review Statement Attending Statement Attending MD Statement: examined this patient, discuss w/resident/PA/MIXED ANIMAL VETERINARIAN, agreed w/resident/PA/MIXED ANIMAL VETERINARIAN, reviewed EMR data (avail), discussed with nursing, discussed with case mgmt, amended to note Attending Assessment/Plan: Patient seen and examined, overall doing better. Surgery has placed a for the VAC on her fasciotomy site. Vital Signs Date Time Temp Pulse Resp B/P Pulse O2 O2 Flow FiO2 Ox Delivery Rate 09/10 1050 Room Air 09/10 0907 Room Air 09/10 0609 98.5 95 20 124/66 98 Room Air 09/10 0000 Room Air 09/09 2215 98 20 144/82 94 Room Air 09/09 1504 98.2 101 20 154/80 94 Room Air on exam; aox3, nad. cv; s1,s2, rrr resp; clear abd; soft, nt, bs+ ext; no edema. skin; + wound vac on rle fasciotomy site. Laboratory Tests 09/10 0636 Chemistry Total Bilirubin (0.2 - 1.3 mg/dL) 0.3 Direct Bilirubin (< 0.4 mg/dL) 0.3 AST (14 - 36 U/L) 342 H ALT (9 - 52 U/L) 71 H Alkaline Phosphatase (<127 U/L) 88 Creatine Kinase (30 - 135 U/L) 51803 H Total Protein (6.3 - 8.2 g/dL) 4.6 L Albumin (3.5 - 5.0 g/dL) 2.3 L A/P: 60-year-old female with past medical history significant for multiple sclerosis under treatment with the Ajay Irizarry MD, hyperlipidemia on statins admitted with fall and found to have high CK. That led to the possible diagnosis of compartment syndrome. Patient was seen by vascular surgery and indeed found to have a compartment syndrome. Status post fasciotomy postop day #3 today. Overall improving with CK levels coming down every day. Patient received VAC at the Fasciotomy site. Via further taping her carbamazepine. We'll continue the 50 minute from dose today and starting tomorrow will decrease it to 25 mg for another 2 days then stop. Continue lamotrigine. LFTs are improving. Patient received last dose of antibiotics tomorrow. She will need to go to rehabilitation which will likely happen tomorrow. IV fluids will be discontinued after this last bag. DVT prophylaxis: Hep sq.
[2016-09-10 06:09] VITALS: BP 124/66
--- NOTE | 2016-09-10 07:34 | PN- General Surgery ---
See Addendum Subjective Subjective: 60-year-old female here with compartment syndrome and rhabdomyolysis, medicine following. Status post fasciotomy. She has yet to be out of bed. Her leg is elevated. She has no complaints of pain, she has mild numbness sensation to the foot. She is concerned that she can't wiggle her toes today. Objective Vital Signs and I&Os Vital Signs Date Time Temp Pulse Resp B/P Pulse O2 O2 Flow FiO2 Ox Delivery Rate 09/10 0609 98.5 95 20 124/66 98 Room Air 09/10 0000 Room Air 09/09 2215 98 20 144/82 94 Room Air 09/09 1504 98.2 101 20 154/80 94 Room Air 09/09 0800 94 Room Air Intake & Output 09/10 0800 09/10 0000 09/09 1600 09/09 0800 09/09 0000 /05 1600 Intake Total 7941 181 9179 1200 Output Total 575 600 100 200 Balance 1105 951 373 9615 -200 Intake, IV 1261 401 6257 1200 Intake, Oral 480 480 520 Number 0 0 Bowel Movements Output, Urine 575 600 100 200 Patient 135 lb Weight Physical Exam: Well-developed well-nourished no apparent distress. Elderly female, looks stated age HEENT: Atraumatic, Neck: Supple Respiratory: No respiratory distress Neuro: Alert and oriented x3 Psych: Mood affect normal, normal memory normal judgment. Skin: Warm and dry, no rash on exposed skin Extremity: Right lower extremity, Moderate thin serous discharge noted. There is mild edema of the right lower leg and mild to moderate edema of the right foot. Dorsal pedal pulse faint but palpable. She is able to flex her toes but cannot extend them, she has no active dorsiflexion at this time. Plantar flexion is 4+ out of 5. She has no pain with passive motion of the toes or the foot or ankle. Foot is pink and warm with good capillary refill. Results Last 48 Hours of Labs: Laboratory Tests 09/10 09/09 0636 0704 Chemistry Total Bilirubin (0.2 - 1.3 mg/dL) Pending 0.4 Direct Bilirubin (< 0.4 mg/dL) Pending 0.4 AST (14 - 36 U/L) Pending 546 H ALT (9 - 52 U/L) Pending 98 H Alkaline Phosphatase (<127 U/L) Pending 88 Creatine Kinase (30 - 135 U/L) Pending 34419 H Total Protein (6.3 - 8.2 g/dL) Pending 4.7 L Albumin (3.5 - 5.0 g/dL) Pending 2.3 L Hematology CBC w Diff NO MAN DIFF REQ WBC (4.8 - 10.8 /CUMM) 9.9 RBC (4.20 - 5.40 /CUMM) 3.93 L Hgb (12.0 - 16.0 G/DL) 11.9 L Hct (37 - 47 %) 35.5 L MCV (81.0 - 99.0 FL) 90.3 MCH (27.0 - 31.0 PG) 30.3 RDW (11.5 - 14.5 %) 15.1 H Plt Count (130 - 400 /CUMM) 252 MPV (7.4 - 10.4 FL) 7.9 Gran % (42.2 - 75.2 %) 55.3 Lymphocytes % (20.5 - 51.1 %) 32.5 Monocytes % (1.7 - 9.3 %) 10.5 H Eosinophils % (0 - 5 %) 1.3 Basophils % (0.0 - 2.0 %) 0.4 Absolute Granulocytes (1.4 - 6.5 /CUMM) 5.5 Absolute Lymphocytes (1.2 - 3.4 /CUMM) 3.2 Absolute Monocytes (0.10 - 0.60 /CUMM) 1.0 H Absolute Eosinophils (0.0 - 0.7 /CUMM) 0.1 Absolute Basophils (0.0 - 0.2 /CUMM) 0 PUBS MCHC (33.0 - 37.0 G/DL) 33.6 Assessment/Plan Assessment/Plan Postop day 3 status post lateral and anterior fasciotomies secondary to compartment syndrome. -Continue twice a day dressing change with moist Betadine and saline dressing. continue elevation and Sumit wrap. We'll discuss with wound vac placement -Patient's functionality of the right foot appears to have decreased slightly today, she does not have active dorsiflexion and cannot extend her toes. Her sensation is decreased but slowly improving. Vascular status of the foot is intact. Possible dropfoot secondary to peroneal palsy or secondary to the compartment syndrome, I've loosened her Sumit bandage and dressing around the proximal fibular region and will discuss with Dr. Mcqueen -Rhabdomyolysis management per medicine -Continue kefzol -Continue DVT prophylaxis with heparin -Leg elevation -OOB WBAT RLE, may need AFO for foot drop Core Measures/Miscellaneous Venous Thromboembolism VTE Risk Factors: Age > 40, Surgery VTE Contraindications: No Contraindications VTE Diagnosis: No VTE Type: NONE VTE Confirmed by (Test): NONE Beta Danyell Is Beta Danyell a Home Med? No Antibiotics Is Patient on Antibiotics? Yes If Yes: prophylaxis
--- NOTE | 2016-09-10 09:19 | Discharge Summary ---
Visit Information Visit Dates Admission Date: 09/05/16 Discharge Date: 09/12/16 Hospital Course Course Attending Physician: ELDON CHEATHAM MD Primary Care Physician: SAURABH PHELPS,ROSEMARY Hospital Course: 60-year-old lady with past medical history of multiple sclerosis and hypercholesterolemia presenting with altered mental status for 1 day with significantly worsening lower extremity weakness for the last 2 weeks.Earlier in the afternoon on the day of admission patient was found on the floor with altered mental status. reports that she was agitated, cursing, talking to herself, and slow to answering questions since the morning. Labs and admission: WBC 14.3, RBC 5.76 , hemoglobin 17.5, serum osmolality more than 300, urine analysis showed large hemoglobin and protein of 100 and ketones 15, AST 748, ALT 156 ,ALP 155 ,CPK more than [address] Imaging: CT head:No acute intracranial pathology. White matter hypoattenuation favoring the periventricular region is similar to the prior T2 bright areas on MRI, consistent with known MS. CXR: No acute process Hospital course 1. Cellulitis: Patient was initially diagnosed with cellulitis with skin breakdown in the right popliteal fossa, admitted to general medical floor and was started on antibiotics and cultures. Culture negative and white count trended down's and she completed a total of 7 days course of intravenous antibiotics. She remained afebrile with pain adequately controlled. 2. Rhabdomyolysis: Patient was initially started on fluids. She was diagnosed with compartment syndrome. The leg appeared More tense on day 3 of admission. She was evaluated by vascular surgery who recommended fasciotomy. Patient underwent right lower leg 2 compartment fasciotomy on 09/07/2016. The muscles were fully viable and looked healthy without evidence of necrosis during the procedure. She was continued on IV fluids with surgery closely following the fasciotomy wound. Her creatinine kinase improved and hence her fluids was discontinued. Her creatinine went up to 1.1 from 0.9 which was presumed to be secondary to atonic bladder as evidenced in CAT scan. Her creatinine improved on the day of discharge. 3. Right lower leg compartment syndrome: She underwent fasciotomy and later discharged with wound VAC in place with structures for weightbearing status as tolerated by the patient. She will need to follow-up with Dr. Mcqueen in his office in 2 weeks. Will need to be to be followed up by wound care service with VAC to be changed twice weekly. 4. Transaminitis: Which could be secondary to her medications including, carbamazepine. Patient takes carbamazepine for trigeminal neuralgia. After discussing with Dr. Almanzar her medications were tapered gradually and she was started on lamotrigine 25 mg daily. Patient did not have any evidence of pain while she is in the hospital. Carbamazepine was tapered gradually and she was discharged on 1 time dose of carbamazepine 25 mg and tomorrow will be the last dose. Should be continued on lamotrigine 25 daily. 5. History of multiple sclerosis: Dr. Garrett was informed about hospital admission. She was continued on Tysabri on a monthly basis. Last dose she received was about a week prior to admission she should follow-up with him as an outpatient for further management and receiving medications. 6. Unwitnessed fall: Patient was seen by neurology who was concerned about secondary proptosis state of multiple sclerosis. MRI was recommended was not completely done as patient was not able to stay still on the machine and later she refused to have the MRI done. She remained stable without any further evidence of weakness noticed. She was evaluated by physical therapy recommended acute rehabilitation facility. AILIN virus status was recommended by neurology this should be done as an outpatient. We will recommend follow-up with primary care physician. 7. Hyperlipidemia: As well held secondary to elevated CPK. Can resume statins as an outpatient after checking CK levels. Caution initiate at a very low dose starting with twice a week would be recommended. She can follow-up with primary care physician 8. History of smoking: Was continued on nicotine patch. Smoking cessation counseling done during this hospital stay. 9. 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 She was seen by urology who recommended a Carlson placement. Patient's creatinine improved on day 2 with symptoms completely resolved. She will be discharged with a Carlson and has to follow-up in a week with Dr. Luu. 10. She is maintained on a regular diet DVT prophylaxis with Lovenox Full CODE STATUS Allergies: Coded Allergies: NO KNOWN ALLERGIES (04/27/14) Significant Procedures: Surgery Date: 09/07/16 Name of Procedure: Right lower leg two compartment fasciotomy Pertinent Lab Results: Laboratory Tests 09/11 09/10 09/09 0632 0636 0704 Chemistry Sodium (137 - 145 mmol/L) 140 Potassium (3.5 - 5.1 mmol/L) 3.7 Chloride (98 - 107 mmol/L) 112 H Carbon Dioxide (22 - 30 mmol/L) 21 L Anion Gap (5 - 16) 7 BUN (7 - 17 mg/dL) 13 Creatinine (0.5 - 1.0 mg/dL) 1.1 H Estimated GFR (>60 ml/min) 50 L BUN/Creatinine Ratio (7 - 25 %) 11.8 Total Bilirubin (0.2 - 1.3 mg/dL) 0.3 0.4 Direct Bilirubin (< 0.4 mg/dL) 0.3 0.4 AST (14 - 36 U/L) 342 H 546 H ALT (9 - 52 U/L) 71 H 98 H Alkaline Phosphatase (<127 U/L) 88 88 Creatine Kinase (30 - 135 U/L) 7887 H 74156 H 34304 H Total Protein (6.3 - 8.2 g/dL) 4.6 L 4.7 L Albumin (3.5 - 5.0 g/dL) 2.3 L 2.3 L Hematology CBC w Diff NO MAN DIFF REQ WBC (4.8 - 10.8 /CUMM) 9.9 RBC (4.20 - 5.40 /CUMM) 3.93 L Hgb (12.0 - 16.0 G/DL) 11.9 L Hct (37 - 47 %) 35.5 L MCV (81.0 - 99.0 FL) 90.3 MCH (27.0 - 31.0 PG) 30.3 RDW (11.5 - 14.5 %) 15.1 H Plt Count (130 - 400 /CUMM) 252 MPV (7.4 - 10.4 FL) 7.9 Gran % (42.2 - 75.2 %) 55.3 Lymphocytes % (20.5 - 51.1 %) 32.5 Monocytes % (1.7 - 9.3 %) 10.5 H Eosinophils % (0 - 5 %) 1.3 Basophils % (0.0 - 2.0 %) 0.4 Absolute Granulocytes (1.4 - 6.5 /CUMM) 5.5 Absolute Lymphocytes (1.2 - 3.4 /CUMM) 3.2 Absolute Monocytes (0.10 - 0.60 /CUMM) 1.0 H Absolute Eosinophils (0.0 - 0.7 /CUMM) 0.1 Absolute Basophils (0.0 - 0.2 /CUMM) 0 PUBS MCHC (33.0 - 37.0 G/DL) 33.6 Disposition Summary Disposition Principal Diagnosis: 1. Cellulitis 2. Rhabdomylysis 3. Right lower leg compartment syndrome 4. Transaminitis 5. Unwitnessed fall 6. Atonic neurogenic bladder due to MS Additional Diagnosis: 1. History of multiple sclerosis 2. Hyperlipidemia 3. History of smoking Discharge Disposition: STR Discharge Instructions General Discharge Information Code Status: Full Code Patient's Diet: Regular diet Patient's Activity: Full weight bearing as tolerated Follow-Up Instructions/Appts: 1. Follow up with PCP in a week upon discharge 2. FOllow up with Dr. Mcqueen regarding wound vac 3. Follow up with Dr. Garrett after discharge. Please call his office for follow up 4. Follow-up with your neurologist as per your scheduled appointment Medications at Discharge Discharge Medications: Stop taking the following medications: Carbamazepine (Tegretol XR) 100 MG TAB.ER.12H ORAL 2 x Daily as needed as needed for TRIGEMINAL NEURALGIA Qty = 60 Continue taking these medications: Atorvastatin Calcium (Atorvastatin Calcium) 40 MG TABLET 1 Tablet ORAL DAILY Qty = 30 Comments: NOT GIVEN IN HOSPITAL Aspirin (Ecotrin*) 81 MG TABLET.DR 1 Tablet ORAL DAILY Comments: Last Taken: 09/12/16 Time: 1000 Loratadine (Claritin) 10 MG TABLET 1 Tablet ORAL DAILY NEEDED Comments: NOT GIVEN IN HOSPITAL Natalizumab (Tysabri) 300 MG/15 ML VIAL 300 Milligram INTRAVEN ONCE A MONTH Instructions: Please speak to Dr Irizarry regarding this medication due to increased liver enzymes. Comments: NOT GIVEN IN HOSPITAL Start taking the following new medications: Lamotrigine (Lamictal) 25 MG TABLET 25 Milligram ORAL DAILY Qty = 21 No Refills Polyethylene Glycol 3350 (Miralax) 17 GRAM POWD.PACK 1 Packet ORAL DAILY Qty = 30 No Refills Instructions: dissolve in water Comments: NOT GIVEN IN HOSPTIAL Bisacodyl (Dulcolax) 10 MG SUPP.RECT 1 Suppository RECTAL DAILY Qty = 10 No Refills Comments: Last Taken: 09/10/16 Time: 6:30 PM Copies To: SAURABH PHELPS,ROSEMARY
--- NOTE | 2016-09-10 11:00 | NUR ---
NURSING NOTE: LEILANI SOMMER AND SHAMAR PLACED WOUND VAC TO PT RLE. WOUND VAC DRESSING INTACT. RLE RED/WARM WITH 3+ EDEMA. +RLE PULSES WITH DOPPLER, VERY WEAK MOVEMENT TO RIGHT FOOT, + SENSATION. WILL CONTINUE TO MONITOR.
[2016-09-10] MEDS ORDERED: LAMICTAL25 M1 PO (13:55)
[2016-09-10] MEDS ORDERED: CARBAMAZEPINE100 M2 PO (13:55)
[2016-09-10 14:37] VITALS: BP 145/68
[2016-09-10 22:00] VITALS: BP 145/77
[2016-09-11 05:01] VITALS: BP 138/90
--- NOTE | 2016-09-11 06:22 | PN- Housestaff ---
ROSCOE PHELPS,[facility] 09/11/16 0621: Subjective Follow-up For: compartment Syndrome Subjective: Ms. Evans was seen and examined this morning. She is resting comfortably in bed. Patient expresses mild discomfort at the area of the wound VAC placement. Patient also states that she is currently annoyed owing to the fact that she has been unable to ambulate or be out of bed into chair. Patient denies having a bowel movement over the last 24 hours. . She does occasionally report mild abdominal pain located in the epigastric area. Patient does not endorse any fever, chills, nausea, vomiting Review of Systems Constitutional: Reports: see HPI. Objective Last 24 Hrs of Vital Signs/I&O Vital Signs Date Time Temp Pulse Resp B/P Pulse O2 O2 Flow FiO2 Ox Delivery Rate 09/11 1122 Room Air 09/11 1116 Room Air 09/11 1015 Room Air 09/11 0501 97.7 106 20 138/90 94 Room Air 09/10 2200 98.3 100 20 145/77 94 Room Air Intake & Output 09/11 1600 09/11 0800 09/11 0000 Intake Total 480 480 Output Total 400 150 Balance 80 330 Intake, Oral 480 480 Output, 200 Drainage Output, Urine 200 150 Physical Exam General Appearance: Alert, Oriented X3, Cooperative Skin: No Rashes Cardiovascular: Regular Rate, Normal S1, Normal S2 Lungs: Clear to Auscultation Abdomen: Normal Bowel Sounds, Soft, Mild Tenderness Epigastric Area Neurological: Normal Speech Extremities: Wound Vac in place. Currently draining. Some evidence of leak noted. Current Medications: Current Medications Sig/Ronak Start time Last Medication Dose Route Stop Time Status Admin Acetaminophen 650 MG Q6P PRN 09/07 1945 AC 09/10 PO 0147 Aspirin Buffered 81 MG DAILY 09/08 1000 AC 09/11 PO 0923 Bisacodyl 10 MG ONCE ONE 09/10 1700 DC 09/10 UT 09/10 1701 1837 Bisacodyl 5 MG DAILY PRN 09/09 0945 AC 09/10 PO 1132 Carbamazepine 25 MG DAILY 09/11 1000 AC 09/11 PO 09/12 1000 0923 Cefazolin Sodium 1,000 MG Q8H 09/08 0300 DC 09/11 IV 1053 Docusate Sodium 100 MG BID 09/07 2200 AC 09/11 PO 0923 Heparin Sodium 5,000 UNIT Q8 09/07 2199 09/11 (Porcine) SC 1348 Lamotrigine 25 MG DAILY 09/08 1000 AC 09/11 PO 0923 Morphine Sulfate 2 MG Q 3-4 HRS PRN PRN 09/07 1944 AC 09/11 IV 0921 Morphine Sulfate 4 MG Q2-3 HRS NEEDED.. 09/07 1944 AC 09/10 IV 0959 Morphine Sulfate 6 MG Q2-3 HRS NEEDED.. 09/07 1944 IV Nystatin 1 AIDA TID 09/07 2199 09/11 TOP 0923 Patient Medication 1 ED .STK-MED ONE 09/11 1348 DC Teaching ED 09/11 1349 Senna 187 MG AT BEDTIME PRN 09/09 0915 AC 09/10 PO 2326 Sodium Chloride 1,000 ML Q6H 09/07 1944 DC 09/10 IV 09/10 1700 1121 Last 24 Hrs of Lab/Meet Results Last 24 Hrs of Labs/Mics: Laboratory Tests 09/11/16 0632: Anion Gap 7, Estimated GFR 50 L, BUN/Creatinine Ratio 11.8, Creatine Kinase 7887 H Assessment/Plan Assessment: This is a 60-year-old female with past medical history of hyperlipidemia and multiple sclerosis who was brought into the emergency department on 09/05/2016 after having a change of mental status and status post unwitnessed mechanical fall. #Unwitnessed mechanical fall and evidence of rhabdomyolysis Mental status change status post fall and elevated creatinine kinase. Likely secondary to fall. CPK trending down. CPK:7887 * Cont IV hydration with NS @ 150ml/hr. We will stop after one more additional Bag. * Formal neurologic consult obtained. For further recommendations on change in mental status. #Abdominal Pain * Patient's had general complaint of nonspecific abdominal pain. CT of the abdomen without pelvis was ordered to rule out any acute pathology. Results do show markedly distended bladder extending up to the level of the umbilicus. Patient was bladder scanned and a straight cath protocol was ordered. We obtained a neurological consult recommended that the patient may need a Carlson inserted overnight and monitored for post obstructive diuresis. Observe strict I 's and O's. Patient was updated and will likely be discharged the next 24 hours. Patient might need fluid boluses to ensure vitals remained within normal Physiological values. Compartment Syndrome At bedside right santiago compartment pressure measured with Bogart device: 60mmHg measure in right santiago. Likely due to soft tissue injury in the setting of prolonged limb compression in the setting of a fall s/p history of multiple sclerosis. Difference between diastolic (68-60) intracompartment pressure on 09/07: 8mmhg. * Remains stable s/p fasciotomy on 09/09. Significant pressure was released with the procedure however the muscles look healthy. Skin breakdown right popliteal fossa * Likely due to deconditioning of due to history of multiple sclerosis. * Ensure the area remains dry. * Keep leg elevated. * Continue dressing compression and leg elevation, wound VAC placed this am. Patient reports no issues. #Transaminitis Likely due to medications (carbamazipine). Decreased patient's dose of carbamazepine. Will find an alternative for trigeminal neuralgia relief. * AST and ALT trending down to 745 & 135 respectively-->546 and 98 -->342 and 71 #History of multiple sclerosis * Dr Edie MD, was notified that the patient has been admitted to [facility]. Continue to [facility] on a monthly basis. Spoke with Dr Edie MD, will likely visit the patient today. * Underwent MRI of head which didnt reveal any new lesions #History of trigeminal neuralgia * Patient is taking Carbamazepine (Tegretol), this was further reduced today to 50 mg daily (from BID). Patient was kept informed, we will reduce to 25 mg tomorrow 09/11/2016.Final dose 09/12/2016. * Spoke with neurologist Dr Edie MD, who is open to this suggestion that we can begin to reduce Tegretol and begin the patient on Lamotrigine. Monitor that patient for any side effects including SJS. #Hyperlipidemia * Hold statin for now in the setting of elevated CPK. * Once levels normalize one can consider beginning statin again. #History of smoking * Nicotine patch 20 mg #Diet * Regular diet #DVT prophylaxis * Lovenox #Code * Full code Problem List: 1. Compartment syndrome 2. Edema of right lower extremity 3. Elevated CPK 4. Transaminitis 5. Rhabdomyolysis Pain Ratin Pain Location: Left Leg Pain Goal: Remain pain free Pain Plan: Morphine Tomorrow's Labs & Rationales: BEP And CK LINDEN PHELPS,[facility] 09/11/16 1303: Attending MD Review Statement Attending Statement Attending MD Statement: examined this patient, discuss w/resident/PA/BULB TESTER, agreed w/resident/PA/BULB TESTER, reviewed EMR data (avail), discussed with nursing, discussed with case mgmt, reviewed images, amended to note Attending Assessment/Plan: Patient seen and examined, this morning before the VAC was loose and it was leaking. It was getting fixed by surgery. Patient hemodynamically remained stable. CPKs coming down. On abdominal exam she had firm abdomen and a mass like structure was felt in the periumblical region. We will get a CT abd/pelvis. Wound vac mx per surgery. Finishing abx today. tegretol taper will be done by tomorrow, Pt doing well on lamotrigine and cuurent pain reg. DVt px; Hep sq. Possibel Dc today if bed available and CT fdgs are benign.
--- NOTE | 2016-09-11 08:01 | PN- Vascular Surgery ---
Subjective Subjective: Patient reporting frustration regarding immobility but states that pain is controlled overall. Denies chest pain but feels that at a baseline she is somewhat short of breath. She denies nausea and vomitting. She has been tolerating po intake without nausea and vomitting, but states that she is not taking in as much liquid as she knows she should. Objective Vital Signs and I&Os Vital Signs Date Time Temp Pulse Resp B/P Pulse O2 O2 Flow FiO2 Ox Delivery Rate 09/11 0501 97.7 106 20 138/90 94 Room Air 09/10 2200 98.3 100 20 145/77 94 Room Air 09/10 1437 98.9 109 20 145/68 95 Room Air 09/10 1050 Room Air 09/10 0907 Room Air Intake & Output 09/11 0800 09/11 0000 09/10 1600 09/10 0800 09/10 0000 09/09 1600 Intake Total 511 076 9374 6491 715 8491 Output Total 400 150 550 575 600 Balance 80 330 1450 1105 930 970 Intake, IV 1200 7358 363 6596 Intake, Oral 480 480 800 480 480 520 Number 0 0 Bowel Movements Output, 200 Drainage Output, Urine 200 150 550 575 600 Patient 135 lb Weight Physical Exam: General: Alert and oriented x3, no acute distress Cardiac: RRR, s1s2 Pulm: CTA bilaterally, respirations shallow Abdomen: non-tender, non-distended Extremities: Distal sensations to ble grossly intact, motor deficit noted in plantar and dorsi flexion of rle. Vascularly intact, skin distal to fasciotomy warm and well perfused. Wound vac in place on fasciotomy site, holding suction, serous drainage noted, mild erythema around wound noted. Posterior knee wound on right leg with serous drainage. Left calf soft and non-tender. Assessment/Plan Assessment/Plan This is a 60 year old female POD 4, s/p fasciotomy for compartment syndrome rle, wound vac placed one day age -continue to monitor CPK, trending down -suppository this am for constipation -OOB with marcelo to chair today -Continue with AFO while oob -Continue rle elevation, wound vac to 125mm hg suction -continue abx for now, monitor kimmy-incisional erythema -Will d/w Dr. Mcqueen -continue primary medical mgmt per medicine team Core Measures/Miscellaneous Venous Thromboembolism VTE Risk Factors: Age > 40, Surgery VTE Contraindications: No Contraindications VTE Diagnosis: No VTE Type: NONE VTE Confirmed by (Test): NONE Beta Danyell Is Beta Danyell a Home Med? No Antibiotics Is Patient on Antibiotics? Yes If Yes: prophylaxis
--- NOTE | 2016-09-11 08:11 | PN- Wound Care ---
Subjective Subjective: VAC has been placed over fasciotomy incision. There continues to be thin serosanguineous drainage. Objective Vital Signs and I&Os Vital Signs Result Date Time Pulse Ox 94 09/11 0501 B/P 138/90 09/11 0501 O2 Delivery Room Air 09/11 050 Temp 97.7 09/11 050 Pulse 106 09/11 0501 Resp 20 09/11 0501 Intake & Output 09/11 0000 09/10 1600 09/10 0800 Intake Total 480 2000 1680 Output Total 150 550 575 Balance 330 1450 1105 Intake, IV 1200 1200 Intake, Oral 480 800 480 Number 0 Bowel Movements Output, Urine 150 550 575 Right lower extremity continues to have significant boggy edema. Wound VAC is placed continues to have thin serosanguineous drainage. CPK has progressively decreased. Renal function remains normal Impression/Plan Impression/Plan Impression/Plan: 60-year-old with MS was found in the floor has evidence of significant rhabdomyolysis and a edematous right leg secondary to compartment syndrome status post fasciotomy. Continue wound VAC leg elevation and Sumit wrap for compression.
--- NOTE | 2016-09-11 09:30 | NUR ---
NURSING NOTE: PT WOUND VAC LEAKING. CRISSY MILLER AT BEDSIDE TO REINFORCE DRESSING. WILL CONTINUE TO MONITOR.
[2016-09-11] MEDS ORDERED: MIRALAX17 G1 PO (14:33)
[2016-09-11] MEDS ORDERED: DULCOLAX10 M1 RC (14:34)
--- NOTE | 2016-09-11 14:44 | NUR ---
WOUND CARE: PT SEEN BY DR CURRY - PLEASE REFER TO MD DOCUMENTATION FOR RECOMMEDNATIONS
[2016-09-11 14:57] VITALS: BP 134/80
[2016-09-11 15:10] VITALS: BP 134/80
--- NOTE | 2016-09-11 15:27 | CT SCAN REPORT ---
EXAMINATION: CT ABDOMEN AND PELVIS WITHOUT CONTRAST CLINICAL INFORMATION: Tenderness. Mass felt on deep palpation. History of multiple sclerosis. COMPARISON: CTA of the chest dated 09/06/2016 TECHNIQUE: Multidetector volumetric imaging was performed from the superior aspect of the liver through the pubic symphysis. Sagittal and coronal reformatted images were obtained on the technologist workstation. DLP: 613.48 mGy-cm. FINDINGS: LUNG BASES: Bilateral small pleural effusions are seen, larger on the right side than the left and both new compared to the prior exam. Associated mild dependent atelectasis is seen in both lower lobes. Included lung bases otherwise unremarkable. Small retrocardiac hiatal hernia is seen. LIVER, GALLBLADDER, AND BILIARY TREE: The liver is normal in size, shape, and attenuation. No focal hepatic lesion on noncontrast imaging. No biliary ductal dilatation is present. The gallbladder is well distended and demonstrates a few layering calcified gallstones within the gallbladder lumen. No evidence of gallbladder wall thickening or obvious pericholecystic inflammatory changes. Evaluation limited due to presence of small volume intra-abdominal ascites in the right upper quadrant. PANCREAS, SPLEEN, ADRENAL GLANDS: Unremarkable on noncontrast imaging. KIDNEYS AND URETERS: The kidneys are normal in size, shape, and attenuation. There is a nonobstructing 0.1 cm calcification in the lower pole of the right kidney, not included on prior exam. Bilateral mild hydronephrosis is seen with dilatation of the renal collecting system and the renal pelvises bilaterally. Proximal right ureter is dilated down to the pelvic inlet level, beyond which the right ureter is poorly visualized, but apparently decompressed. No obstructing stone or mass is visualized. There is mild right-sided perinephric and proximal periureteric edema and stranding seen, which extends down to the pelvic inlet level. There is likely mild left-sided hydroureter, though overall poorly visualized. BLADDER: Markedly distended, extending up to the level of the umbilicus. Bladder otherwise unremarkable without definite mass appreciated on noncontrast study. GASTROINTESTINAL TRACT: The small and large bowel are decompressed. Scattered colonic diverticula are seen with no evidence of acute diverticulitis. Small amount of free fluid is seen surrounding the cecum and. The appendix is not discretely visualized. ABDOMINAL WALL: There is diffuse anasarca is seen in the soft tissues. LYMPH NODES, VASCULAR: No significant adenopathy is seen. Minimal atherosclerotic vascular calcification seen involving the aorta. PELVIC VISCERA: Unremarkable. OSSEOUS STRUCTURES: There is moderate degenerative disc disease at the lumbosacral junction and at the thoracolumbar junction with disc space narrowing, vacuum disc phenomenon, vertebral endplate sclerosis and spurring. IMPRESSION: 1. Markedly distended bladder, extending up to the level of the umbilicus. Carlson catheter / straight catheter decompression is recommended if the patient is unable to void. 2. Mild bilateral hydronephrosis, right greater than left. This is likely related to back pressure from the markedly distended bladder. I suspect there is associated spontaneous the right urothelial tear/decompression, accounting for the periureteric edema and stranding seen on the right side. 3. Diffuse anasarca and bilateral pleural effusions, suspicious for fluid overload. 4. Bilateral lower lobe subsegmental atelectasis. 5. Small hiatal hernia. 6. Nonobstructing lower pole right renal calcification. 7. Scattered colonic diverticula with no evidence of acute diverticulitis. This result was discussed with Dr. Gareth Sheridan 09/11/2016, 3:15 PM and it was ascertained that the content and urgency of this report was understood at the time of direct communication.
--- NOTE | 2016-09-11 16:08 | NUR ---
NURSING NOTE: BLADDER SCANNED PT FOR 418/400/381ML. STRAIGHT CATH PT PER ORDERS AND 1050ML OBTAINED. KAREN MALHOTRA #[phone] AWARE.
--- NOTE | 2016-09-11 16:30 | Cons- Urology ---
General Information and HPI Consulting Request Date of Consult: 09/11/16 Requested By: LINDEN PHELPS,ELDON Reason for Consult: bilateral hydronephrosis Source of Information: patient, old records Exam Limitations: no limitations History of Present Illness: 60 YEAR OLD WITH MS, COMPARTMENT SYNDROME NOW POST FASCIOTOMY. NOTED ABD. PAIN AND ON CT WITH RETENTION AND BILAT. HYDRO. Allergies/Medications Allergies: Coded Allergies: NO KNOWN ALLERGIES (04/27/14) Home Med List: Aspirin (Ecotrin*) 81 MG TABLET.DR 1 TAB PO DAILY HEART HEALTH (Reported) Atorvastatin Calcium 40 MG TABLET 1 TAB PO DAILY HIGH CHOLESTROL (Reported) Carbamazepine (Tegretol XR) 100 MG TAB.ER.12H 1 TAB PO BIDP PRN TRIGEMINAL NEURALGIA (Reported) Carbamazepine 100 MG TAB.CHEW 25 MG PO DAILY Neuropathy Lamotrigine (Lamictal) 25 MG TABLET 25 MG PO DAILY Neuropathy Loratadine (Claritin) 10 MG TABLET 1 TAB PO DAILY NEEDED ALLERGIES ( Reported) Natalizumab (Tysabri) 300 MG/15 ML VIAL 300 MG IV Q30D MULTIPLE SCLEROSIS ( Reported) Please speak to Dr Irizarry regarding this medication due to increased liver enzymes. Current Medications: Current Medications Sig/Ronak Start time Last Medication Dose Route Stop Time Status Admin Acetaminophen 650 MG Q6P PRN 09/07 1944 AC 09/10 PO 0147 Aspirin Buffered 81 MG DAILY 09/08 1000 AC 09/11 PO 0923 Bisacodyl 10 MG ONCE ONE 09/10 1700 DC 09/10 ME 09/10 1701 1837 Bisacodyl 5 MG DAILY PRN 09/09 0945 AC 09/10 PO 1132 Carbamazepine 25 MG DAILY 09/11 1000 AC 09/11 PO 09/12 1000 0923 Cefazolin Sodium 1,000 MG Q8H 09/08 0300 DC 09/11 IV 1053 Docusate Sodium 100 MG BID 09/07 2200 AC 09/11 PO 0923 Heparin Sodium 5,000 UNIT Q8 09/07 2200 AC 09/11 (Porcine) SC 1348 Lamotrigine 25 MG DAILY 09/08 1000 AC 09/11 PO 0923 Morphine Sulfate 2 MG Q 3-4 HRS PRN PRN 09/07 1944 AC 09/11 IV 0921 Morphine Sulfate 4 MG Q2-3 HRS NEEDED.. 09/07 1944 AC 09/10 IV 0959 Morphine Sulfate 6 MG Q2-3 HRS NEEDED.. 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 Home Services at Home: None Smoking Status: Current Everyday Smoker Review of Systems Review of Systems Constitutional: Reports: malaise, weakness. EENTM: Denies: no symptoms. Cardiovascular: Denies: no symptoms. Respiratory: Denies: no symptoms. GI: Reports: bloating. Genitourinary: Reports: hesitation. Exam & Diagnostic Data Vital Signs and I&O Vital Signs Date Time Temp Pulse Resp B/P Pulse O2 O2 Flow FiO2 Ox Delivery Rate 09/11 1510 98.9 93 18 134/80 09/11 1457 99.0 93 18 134/80 94 Room Air 09/11 1122 Room Air 09/11 1116 Room Air 09/11 1015 Room Air 09/11 0501 97.7 106 20 138/90 94 Room Air 09/10 2200 98.3 100 20 145/77 94 Room Air Intake & Output 09/11 1600 08 0800 09/11 0000 09/10 1600 09/10 0800 / 0000 Intake Total 800 354 503 9522 1680 930 Output Total 725 400 150 550 575 Balance 75 80 330 1450 1105 930 Intake, IV 1200 1200 450 Intake, Oral 800 480 480 800 480 480 Number 0 Bowel Movements Output, 200 Drainage Output, Urine 725 200 150 550 575 Last 24 Hours of Labs: Laboratory Tests 09/11 06 Chemistry Sodium (137 - 145 mmol/L) 140 Potassium (3.5 - 5.1 mmol/L) 3.7 Chloride (98 - 107 mmol/L) 112 H Carbon Dioxide (22 - 30 mmol/L) 21 L Anion Gap (5 - 16) 7 BUN (7 - 17 mg/dL) 13 Creatinine (0.5 - 1.0 mg/dL) 1.1 H Estimated GFR (>60 ml/min) 50 L BUN/Creatinine Ratio (7 - 25 %) 11.8 Creatine Kinase (30 - 135 U/L) 7887 H Imaging Results: PATIENT: ELVA KIMBLE PRESENT AGE: 60 PATIENT ACCOUNT NO: [id number] : 53 LOCATION: 2NB ORDERING PHYSICIAN: WILLI URRUTIA MD SERVICE DATE: 09/11/16- EXAM TYPE: CAT - CT ABD & PELVIS W/O IV CONTRAS EXAMINATION: CT ABDOMEN AND PELVIS WITHOUT CONTRAST CLINICAL INFORMATION: Tenderness. Mass felt on deep palpation. History of multiple sclerosis. COMPARISON: CTA of the chest dated 09/06/2016 TECHNIQUE: Multidetector volumetric imaging was performed from the superior aspect of the liver through the pubic symphysis. Sagittal and coronal reformatted images were obtained on the technologist workstation. DLP: 613.48 mGy-cm. FINDINGS: LUNG BASES: Bilateral small pleural effusions are seen, larger on the right side than the left and both new compared to the prior exam. Associated mild dependent atelectasis is seen in both lower lobes. Included lung bases otherwise unremarkable. Small retrocardiac hiatal hernia is seen. LIVER, GALLBLADDER, AND BILIARY TREE: The liver is normal in size, shape, and attenuation. No focal hepatic lesion on noncontrast imaging. No biliary ductal dilatation is present. The gallbladder is well distended and demonstrates a few layering calcified gallstones within the gallbladder lumen. No evidence of gallbladder wall thickening or obvious pericholecystic inflammatory changes. Evaluation limited due to presence of small volume intra-abdominal ascites in the right upper quadrant. PANCREAS, SPLEEN, ADRENAL GLANDS: Unremarkable on noncontrast imaging. KIDNEYS AND URETERS: The kidneys are normal in size, shape, and attenuation. There is a nonobstructing 0.1 cm calcification in the lower pole of the right kidney, not included on prior exam. Bilateral mild hydronephrosis is seen with dilatation of the renal collecting system and the renal pelvises bilaterally. Proximal right ureter is dilated down to the pelvic inlet level, beyond which the right ureter is poorly visualized, but apparently decompressed. No obstructing stone or mass is visualized. There is mild right-sided perinephric and proximal periureteric edema and stranding seen, which extends down to the pelvic inlet level. There is likely mild left-sided hydroureter, though overall poorly visualized. BLADDER: Markedly distended, extending up to the level of the umbilicus. Bladder otherwise unremarkable without definite mass appreciated on noncontrast study. GASTROINTESTINAL TRACT: The small and large bowel are decompressed. Scattered colonic diverticula are seen with no evidence of acute diverticulitis. Small amount of free fluid is seen surrounding the cecum and. The appendix is not discretely visualized. ABDOMINAL WALL: There is diffuse anasarca is seen in the soft tissues. LYMPH NODES, VASCULAR: No significant adenopathy is seen. Minimal atherosclerotic vascular calcification seen involving the aorta. PELVIC VISCERA: Unremarkable. OSSEOUS STRUCTURES: There is moderate degenerative disc disease at the lumbosacral junction and at the thoracolumbar junction with disc space narrowing, vacuum disc phenomenon, vertebral endplate sclerosis and spurring. IMPRESSION: 1. Markedly distended bladder, extending up to the level of the umbilicus. [place] catheter / straight catheter decompression is recommended if the patient is unable to void. 2. Mild bilateral hydronephrosis, right greater than left. This is likely related to back pressure from the markedly distended bladder. I suspect there is associated spontaneous the right urothelial tear/decompression, accounting for the periureteric edema and stranding seen on the right side. 3. Diffuse anasarca and bilateral pleural effusions, suspicious for fluid overload. 4. Bilateral lower lobe subsegmental atelectasis. 5. Small hiatal hernia. 6. Nonobstructing lower pole right renal calcification. 7. Scattered colonic diverticula with no evidence of acute diverticulitis. This result was discussed with Dr. Gareth Sheridan 09/11/2016, 3:15 PM and it was ascertained that the content and urgency of this report was understood at the time of direct communication. Assessment/Plan Assessment/Plan pt with atonic neurogenic bladder due to MS, resulting in bladder outlet obstruction and bilateral hydronephrosis. recommend sepaña now, monitor vitals, I&O for 24 hours: may need fluid boluses to treat potential post obstructive diuresis. Copies To: ADAM MALLORY MD Consult Acknowledgment - Thank you for your consult request. Attending MD Review Statement Attending Statement Attending MD Statement: examined this patient, discuss w/resident/PA/TILE LAYER SUPERVISOR Attending Assessment/Plan: pt with atonic neurogenic bladder: recommend españa: f/u 4-6 weeks for urodynamics.
[2016-09-11 22:29] VITALS: BP 126/70
[2016-09-12] VITALS: BP 128/78
[2016-09-12 02:16] VITALS: BP 122/72
--- NOTE | 2016-09-12 05:53 | PN- Housestaff ---
ROSCOE PHELPS,[facility] 09/12/16 0553: Subjective Follow-up For: Compartment Syndrome Atonic Bladder Subjective: Ms Evans was seen and examined this morning. She reports no issues overnight. Patient states that she feels better. She denies any abdominal pain or abdominal discomfort. She states that following the insertion of the Carlson cathetar she has had marked relief in her abdominal pain symptoms. Patient states that her wound VAC is currently draining well. She denies any pain on he right lower extremity. She denies any fever, chills, nausea, vomiting. Patient does report that she is eager to be taken out of bed. Review of Systems Constitutional: Reports: see HPI. Objective Last 24 Hrs of Vital Signs/I&O Vital Signs Date Time Temp Pulse Resp B/P Pulse O2 O2 Flow FiO2 Ox Delivery Rate 09/12 0732 98.9 99 20 94 09/12 0216 122/72 09/12 0000 128/78 09/11 2229 99.1 113 18 126/70 95 09/11 1510 98.9 93 18 134/80 09/11 1457 99.0 93 18 134/80 94 Room Air 09/11 1122 Room Air 09/11 1116 Room Air 09/11 1015 Room Air Intake & Output 09/12 1600 09/12 0800 09/12 0000 Intake Total 240 1200 Output Total 423 279 7653 Balance - Intake, Oral 240 1200 Output, 50 Drainage Output, Urine 093 554 7232 Physical Exam General Appearance: Alert, Oriented X3, Cooperative Cardiovascular: Normal S1, Normal S2 Lungs: Clear to Auscultation Abdomen: Normal Bowel Sounds, Soft, No Tenderness Neurological: Normal Speech Extremities: No Edema, Wound Vac in place. Draining well. Current Medications: Current Medications Sig/Ronak Start time Last Medication Dose Route Stop Time Status Admin Acetaminophen 650 MG Q6P PRN 09/07 1945 AC 09/10 PO 0147 Aspirin Buffered 81 MG DAILY 09/08 1000 AC 09/11 PO 0923 Bisacodyl 5 MG DAILY PRN 09/09 0945 AC 09/10 PO 1132 Carbamazepine 25 MG DAILY 09/11 1000 AC 09/11 PO 09/12 1000 0923 Cefazolin Sodium 1,000 MG Q8H 09/08 0300 DC 09/11 IV 1053 Docusate Sodium 100 MG BID 09/07 2200 AC 09/11 PO 2245 Heparin Sodium 5,000 UNIT Q8 09/07 2199 AC 09/12 (Porcine) SC 0547 Lamotrigine 25 MG DAILY 09/08 1000 AC 09/11 PO 09/13 1000 0923 Morphine Sulfate 2 MG Q 3-4 HRS PRN PRN 09/07 194 AC 09/11 IV 0921 Morphine Sulfate 4 MG Q2-3 HRS NEEDED.. 09/07 1944 AC 09/10 IV 0959 Morphine Sulfate 6 MG Q2-3 HRS NEEDED.. 09/07 1944 AC IV Nystatin 1 AIDA TID 09/07 2199 DC 09/11 TOP 0923 Patient Medication 1 ED .STK-MED ONE 09/11 1348 DC Teaching ED 09/11 1349 Senna 187 MG AT BEDTIME PRN 09/09 0915 AC 09/10 PO 2326 Last 24 Hrs of Lab/Meet Results Last 24 Hrs of Labs/Mics: Laboratory Tests 09/12/16 0640: Anion Gap 3 L, Estimated GFR > 60, BUN/Creatinine Ratio 15.7, Creatine Kinase Pending Microbiology 09/11 1840 URINE ROUT: Urine Culture - RES Assessment/Plan Assessment: This is a 60-year-old female with past medical history of hyperlipidemia and multiple sclerosis who was brought into the emergency department on 09/05/2016 after having a change of mental status and status post unwitnessed mechanical fall. #Unwitnessed mechanical fall and evidence of rhabdomyolysis Mental status change status post fall and elevated creatinine kinase. Likely secondary to fall. CPK trending down. CPK:7887-->4953 * Cont IV hydration with NS @ 150ml/hr. We will stop after one more additional Bag. * Formal neurologic consult obtained. For further recommendations on change in mental status. #Abdominal Pain * 09/11/2016: Patient's had general complaint of nonspecific abdominal pain. CT of the abdomen without pelvis was ordered to rule out any acute pathology. Results do show markedly distended bladder extending up to the level of the umbilicus. Patient was bladder scanned and a straight cath protocol was ordered. We obtained a neurological consult recommended that the patient may need a Carlson inserted overnight and monitored for post obstructive diuresis. Observe strict I's and O's. Patient was updated and will likely be discharged the next 24 hours. Patient might need fluid boluses to ensure vitals remained within normal Physiological values. * Patient was given a one time 40 mg PO Lasix to reduce anasarca and effusions Compartment Syndrome At bedside right santiago compartment pressure measured with Ronald device: 60mmHg measure in right santiago. Likely due to soft tissue injury in the setting of prolonged limb compression in the setting of a fall s/p history of multiple sclerosis. Difference between diastolic (68-60) intracompartment pressure on 09/07: 8mmhg. * Remains stable s/p fasciotomy on 09/09. Significant pressure was released with the procedure however the muscles look healthy. Skin breakdown right popliteal fossa * Likely due to deconditioning of due to history of multiple sclerosis. * Ensure the area remains dry. * Keep leg elevated. * Continue dressing compression and leg elevation, wound VAC placed this am. Patient reports no issues. #Transaminitis Likely due to medications (carbamazipine). Decreased patient's dose of carbamazepine. Will find an alternative for trigeminal neuralgia relief.Final Dose of 25mg Carbamazipine given today. * AST and ALT trending down to 745 & 135 respectively-->546 and 98 -->342 and 71 #History of multiple sclerosis * Dr Edie MD, was notified that the patient has been admitted to [facility]. Continue to [facility] on a monthly basis. Spoke with Dr Edie MD, will likely visit the patient today. * Underwent MRI of head which didnt reveal any new lesions #History of trigeminal neuralgia * Patient is taking Carbamazepine (Tegretol), this was further reduced today to 50 mg daily (from BID). Patient was kept informed, we will reduce to 25 mg tomorrow 09/11/2016.Final dose today. * Spoke with neurologist Dr Edie MD, who is open to this suggestion that we can begin to reduce Tegretol and begin the patient on Lamotrigine. Monitor that patient for any side effects including SJS. #Hyperlipidemia * Hold statin for now in the setting of elevated CPK. * Once levels normalize one can consider beginning statin again. #History of smoking * Nicotine patch 20 mg #Diet * Regular diet #DVT prophylaxis * Lovenox #Code * Full code Problem List: 1. Rhabdomyolysis 2. Leukocytosis 3. Transaminitis 4. Atonic neurogenic bladder 5. Compartment syndrome 6. Edema of right lower extremity 7. Cellulitis Pain Ratin Pain Location: No Pain Reported Pain Goal: Remain pain free Pain Plan: Morphine Tomorrow's Labs & Rationales: No Labs LINDEN PHELPSELDON 09/12/16 1205: Attending MD Review Statement Attending Statement Attending MD Statement: examined this patient, discuss w/resident/PA/FIRESTOP/CONTAINMENT WORKER, agreed w/resident/PA/FIRESTOP/CONTAINMENT WORKER, reviewed EMR data (avail), discussed with nursing, discussed with case mgmt, reviewed images, amended to note Attending Assessment/Plan: Patient seen and examined, feels okay. Offers no complaints. Yesterday's CAT scan was consistent with markedly distended bladder and bilateral [place]. It showed bilateral pleural effusions and anasarca. I gave her 40 mg of PO Lasix just 1 dose (ordered). She is otherwise medically stable for discharge to rehabilitation today. She had a Carlson catheter that was inserted after seen by urology. She will follow per Dr. Luu in her office and needs to keep the catheter for at least 4-6 weeks. Wound VAC is working without any deep. She has completed the course of antibiotics. She has finished the taper for her carbamazepine. Further management of her multiple sclerosis is per Ajay Irizarry MD.
--- NOTE | 2016-09-12 08:32 | PN- Wound Care ---
Subjective Subjective: Patient reports feeling somewhat improved. s He is able to move her foot. Wound VAC is in place. Leg is elevated. Objective Vital Signs and I&Os Vital Signs Result Date Time Pulse Ox 94 09/13 731 Temp 98.9 09/13 731 Pulse 99 09/13 731 Resp 20 09/13 731 B/P 122/72 09/12 0216 O2 Delivery Room Air 09/11 1457 Intake & Output 09/12 0000 09/11 1600 09/11 0800 Intake Total 1200 800 480 Output Total 2750 725 400 Balance -1550 75 80 Intake, Oral 1200 800 480 Output, 200 Drainage Output, Urine 2750 725 200 Right lower extremity continues to have boggy edema wound VAC is in place and will be replaced tomorrow. CPK continues to slowly decrease. Impression/Plan Impression/Plan Impression/Plan: 60-year-old with MS was found in the floor has evidence of significant rhabdomyolysis and a edematous right leg secondary to compartment syndrome status post fasciotomy. Continue wound VAC leg elevation and Sumit wrap for compression. Patient will likely need short-term rehabilitation and can be followed in the wound center
--- NOTE | 2016-09-12 08:55 | PN- Vascular Surgery ---
Subjective Subjective: Awake, alert No complaints regarding RLE Very light sensation of that leg due to history of MS - pain free Pts baseline ambulatory level is with assist, weakness BLE, decreased sensation BLE Objective Vital Signs and I&Os Vital Signs Date Time Temp Pulse Resp B/P Pulse O2 O2 Flow FiO2 Ox Delivery Rate 09/12 0732 98.9 99 20 94 09/12 0216 122/72 09/12 0000 128/78 09/11 2229 99.1 113 18 126/70 95 09/11 1510 98.9 93 18 134/80 08 1457 99.0 93 18 134/80 94 Room Air 09/11 1122 Room Air 09/11 1116 Room Air 09/11 1015 Room Air Intake & Output 09/12 1600 09/12 0809/12 0000 09/11 1600 09/11 0809/11 0000 Intake Total 240 1200 800 480 480 Output Total 941 563 0229 725 400 150 Balance - 75 80 330 Intake, Oral 240 1200 800 480 480 Output, 50 200 Drainage Output, Urine 841 158 9665 725 200 150 Physical Exam: RLE: wound vac in place, good suction, mild erythema surrounding tissue - no tracking out nontender but decreased sensation is normal per patient, decreased movement of foot/ankle has not changed Assessment/Plan Assessment/Plan 60 yo female with ms, admitted with rhabdo, RLE fasciotomy pod3 Wound vac in place with good suction Will be followed by wound care service Vac will be changed twice weekly - per wound care Follow up with vascular surgery in 2 weeks - Dr Mcqueen
[2016-09-12 09:58] VITALS: BP 134/80
== END 2016-09-12 12:45 | DRG 982 ==
LOC: ENRESERVDT → ENRESERVTM → ERH 19:18 → ERHI 20:58 → 2NB 20:58 → ENPENDDIS 20:58 → 2NB 09-06 02:37
PROVIDERS: Emergency Medicine; Internal Medicine; Student in an Organized Health Care Education/Training Program; ADMIT Internal Medicine
PROC: 0KNS0ZZ Release Right Lower Leg Muscle, Open Approach (ICD-10-PCS; principal; 2016-09-07)
DX: L03.115 Cellulitis of right lower limb (principal); T79.A21A Traumatic compartment syndrome of right lower extremity, initial encounter; M62.82 Rhabdomyolysis; G35 Multiple sclerosis; N31.9 Neuromuscular dysfunction of bladder, unspecified; N13.30 Unspecified hydronephrosis; L89.899 Pressure ulcer of other site, unspecified stage; W18.39XA Other fall on same level, initial encounter; E78.5 Hyperlipidemia, unspecified; F17.210 Nicotine dependence, cigarettes, uncomplicated; G50.0 Trigeminal neuralgia; R33.9 Retention of urine, unspecified
CPT/HCPCS: 2NBSP; 70551; 72146; ERO; 36415; 71111; 72080; 73552; 73630-RT; 74176; 81001; 82436; 87040; 87086; 87804; 87804-59; 93005; 93010; 96360; 96361; 97110-GO; 97162-GP; 97530-GO; J0690; J1644; J1940

== ENCOUNTER → 2016-10-24 | Day surgery (SDC) | payer OTHER ==
[~2016-10-24] VITALS: Ht 152.4 cm; Wt 59.4 kg
[~2016-10-24] MED LIST: ASPIRIN EC81 M1 PO; ATORVASTATIN CA40 M1 PO; CARBAMAZEPINE100 M2 PO; CLARITIN10 M1 PO; DOCUSATE SODIU100 M3 PO; DULCOLAX10 M1 RC; LAMICTAL25 M1 PO; MIRALAX119 GM PO; MIRALAX17 G1 PO; TEGRETOL XR100 MG PO; TYLENOL325 M1 PO; TYSABRI300 MG/15 IV
--- NOTE | 2016-10-24 20:33 | Operative Report ---
Operative/Inv Procedure Report Surgery Date: 10/24/16 Name of Procedure: Right renal ESWL, fluoroscopy, cystoscopy. Pre-Operative Diagnosis: Right renal stone, abnormal bladder wall on CT. Post-Operative Diagnosis: Same Estimated Blood Loss: scant Surgeon/Dermatology Sales Representative: ADAM MALLORY MD Anesthesia: moderate sedation Complications: None Operative/Procedure Note Note: The patient was taken to the operating room and placed on the ESWL table in supine position. The patient's right flank was positioned over the table cut- out overlying the dome of the treatment head. Timeout was performed, with the patient awake, in order to confirm the correct identity, side, anesthesia, procedure and other pertinent kimmy-operative information. The patient was then anesthesized. Once the patient was adequately sedated, fluoroscopy, as well as Renal ultrasound was used to locate the right renal stone. Renal US was used to confirm the placement of the stone, and measured it to be approximately 6 mm in size at the right renal pelvis. Additionally, renal U/S revealed no hydronephrosis, and no solid tumor. With the stone's position optimized, using AP and oblique fluoroscopy views, the right renal E.S.W.L. was initiated at low energy level. After noting the patient's tolerance to the shockwaves, the intensitiy was ramped up to maximum level. At the end of the procedure, the composition of the right renal stone had changed significantly, indicating the shattering of the renal stone. Of note, a total of 2500 shockwaves were delivered to the stones. The patient was then frog legged, draped and prepped in usual surgical fashion. 22 Moroccan cystoscope sheath with a 30 angle lens was inserted without difficulty. The bladder was noted to be free of tumor, however significant trabeculation with edematous mucosa was noted. The cystoscope was then removed. The patient tolerated the procedure well, was awakened, then taken to recovery in satisfactory condition via stretcher. The patient was dischared home with pain medications, diet orders, and intructions to catch fragments by straining the urine. The patient to to have follow-up renal ultrasound and KUB in 1 to 2 weeks, prior to follow-up visit in my office. Findings: Trabeculated, and edematous bladder mucosa. Discharge Disposition: PACU CC: ADAM MALLORY MD
== END ==
LOC: STS 01:34
DX: N20.0 Calculus of kidney (principal); G35 Multiple sclerosis; N32.89 Other specified disorders of bladder; R32 Unspecified urinary incontinence; N31.2 Flaccid neuropathic bladder, not elsewhere classified; Z87.891 Personal history of nicotine dependence
CPT/HCPCS: J2250

== ENCOUNTER 2016-10-28 04:29 | Inpatient (IN) | payer OTHER ==
[2016-10-28] VITALS (7 sets, daily range): BP systolic 90–98; BP diastolic 50–64
[~2016-10-28] VITALS: Ht 152.4 cm; Wt 56.7 kg
[~2016-10-28 04:29] MED LIST changes: -DOCUSATE SODIU100 M3 PO; -MIRALAX119 GM PO; -TYLENOL325 M1 PO
--- NOTE | 2016-10-28 15:43 | Operative Report ---
Operative/Inv Procedure Report Surgery Date: 10/28/16 Name of Procedure: Right leg debridement of muscle (superficial posterior compartment muscle) Pre-Operative Diagnosis: Right leg wound, necrosis Post-Operative Diagnosis: Right leg gangrene Estimated Blood Loss: scant Surgeon/Electronics Worker: TONY HERMAN MD Anesthesia: moderate sedation Operative Indication: 60-year-old female with right leg wound. About 2 months ago, patient fell and developed a pressure wound on the right posterior knee area. She also had compartment syndrome requiring right anterior and lateral fasciotomy. The right leg fasciotomy wounds are healing. However the right posterior knee wound had progressed and became necrotic. She is here for debridement. Operative/Procedure Note Note: Patient was brought to the operating room, placed in the left lateral decubitus position due to back pain. The right leg was prepped and draped in the usual sterile fashion. There was a wound on the popliteal fossa on the right side. The skin edges had good healthy tissue and granulating. There is a large necrotic wound in the space. Using pickups, sharp knife, this was debridement. There was liquefaction necrosis of this tissue. It appeared to be liquefaction necrosis of muscle this is debrided down. There is healthy muscle the deeper layer (may have been portions of the superficial posterior compartment. The necrotic tissue was removed using sharp dissection with a knife, and curved Leon. There is a necrotic fatty tissue as well and this is debrided. This is tracking down 3 or 4 cm inferiorly, and 1 or 2 cm proximally. I then placed the pulse lavage irrigated with bacitracin solution and irrigated about 1-2 L of solution. I did test the muscle in the posterior compartment that was still fibro- appearing. Using cautery there was some retraction of the muscle. Then packed the wound with Betadine soaked gauze and wrapped. Cultures were sent of the muscular necrotic tissue, as well as specimen. We will likely need to return to the operating over the next few days for reevaluation, and possible repeat debridement. I think a CT scan will also be helpful to delineate the degree of tissue that is affected.
--- NOTE | 2016-10-28 16:09 | Cons- Infect Disease ---
General Information and HPI Consulting Request Date of Consult: 10/28/16 Requested By: BATSHEVA PHELPS,TONY GARDINER Reason for Consult: Right leg infection Source of Information: patient, old records History of Present Illness: This is a 60-year-old woman with multiple sclerosis hospitalized over 7 weeks prior to admission after a fall at home, found to have an infection in the right popliteal fossa, with rhabdomyolysis and compartment syndrome, taken to the OR for both anterior and lateral compartment fasciotomies, with no evidence of muscle necrosis, treated with nearly one week of Cefazolin, discharged to a rehabilitation facility with an indwelling Carlson catheter because of urinary retention, status post right ESWL 4 days prior to admission, admitted today from the rehabilitation facility after she was found to have progression of her posterior wound with necrosis when evaluated as an outpatient last week. She was brought to the OR today for debridement of the necrotic wound, with evidence of liquefaction necrosis of the tissue, including muscle, which was foul- smelling. She denies any pain and has had no fevers, chills or other constitutional symptoms. Allergies/Medications Allergies: Coded Allergies: NO KNOWN ALLERGIES (04/27/14) Home Med List: Aspirin (Ecotrin*) 81 MG TABLET.DR 1 TAB PO DAILY HEART HEALTH (Reported) Lamotrigine (Lamictal) 25 MG TABLET 25 MG PO DAILY Neuropathy Loratadine (Claritin) 10 MG TABLET 1 TAB PO DAILY NEEDED ALLERGIES ( Reported) Past History Medical History Neurological: multiple sclerosis, trigeminal neuralgia EENT: NONE Cardiovascular: hyperlipidemia Respiratory: NONE Gastrointestinal: NONE Hepatic: NONE Renal: NONE Musculoskeletal: NONE Psychiatric: NONE Endocrine: NONE Blood Disorders: NONE Cancer(s): NONE SPECIALIZED DEVELOPER/Reproductive: NONE History of MRSA: No History of VRE: No History of CDIFF: No Surgical History Surgical History: appendectomy Psychosocial History Services at Home: None Review of Systems Review of Systems All Other Systems: Reviewed and Negative Exam & Diagnostic Data Last 24 Hrs of Vital Signs/I&O Vital signs are stable Physical Exam Other Physical Findings: She is awake and alert in no acute distress. She is afebrile. Skin reveals no rash. HEENT exam is negative. Neck is supple with no adenopathy. Lungs are clear. Heart regular rhythm with no murmur. Abdomen is soft, nontender with positive bowel sounds. Back no CVA tenderness. Extremities right leg dressing in place. Neuro decreased sensation of the right foot, with no other focality appreciated. : Carlson catheter is in place. Last 24 Hours of Lab Results: No labs available Last 24 Hours of Meet Results: OR culture right leg from today pending Assessment/Plan Assessment/Plan Impression: This is a 60-year-old woman with multiple sclerosis hospitalized over 7 weeks prior to admission after a fall at home resulting in compartment syndrome, requiring anterior and lateral fasciotomies and treated with Cefazolin for nearly one week for a cellulitis, discharged to a rehabilitation facility with a Carlson catheter for urinary retention, status post right ESWL 4 days prior to admission, admitted today for debridement of a necrotic wound involving the muscles of the popliteal fossa. Though she has no systemic symptoms, the appearance of the wound raised concern for an underlying infection, which may be polymicrobial, and she can be covered broadly pending OR cultures. Of note she has had an indwelling Carlson catheter since her discharge, and, if urinary retention persists, alternatives to the Carlson catheter, such as straight catheterization or suprapubic cystostomy, should be pursued. Suggestion: 1. Follow-up OR cultures 2. Urology follow-up regarding removal of the Carlson catheter 3. Begin Unasyn 3 g IV every 6 hours pending above Consult Acknowledgment - Thank you for your consult request.
--- NOTE | 2016-10-28 16:57 | Admission Core Measures ---
Admission Meds I reviewed the following Meds: Current Medications Sig/Ronak Start time Last Medication Dose Stop Time Status Admin Aspirin Buffered 81 MG DAILY 10/29 1000 UNVr (Ecotrin) Lamotrigine 25 MG DAILY 10/29 1000 UNVr (LaMICtal) Acute Coronary Syndrome Inclusion Criteria ACS Diagnosis No Inpatient Core Measures LDL Reminder: If No, please order W/I first 24hr of stay Congestive Heart Failure Inclusion Criteria CHF Diagnosis No Cerebrovascular accident Inclusion Criteria CVA/TIA Diagnosis No Inpatient Core Measures Bedside Swallow Eval Reminder: If BSE failed, place ST order Antithrombotic Reminder: Order Antithrombotic Medication by end of day 2 Antithrombotic Reminder: Document Reason Antithrombotic Not ordered by end of day 2 AFIB/Flutter Reminder: If Present, add to problem list AFIB/Flutter Reminder: Order Anticoag Medication for pts with AFIB/Flutter Atherosclerosis Reminder: If Present, add to problem list LDL Reminder: If No, please order W/I first 24hr of stay PT Order Reminder: If No, please order Venous thromboembolism Inpatient Core Measures VTE Risk Factors: Age > 40, Surgery [facility] prophylaxis d/t No contraindications No VTE Pharm Prophylaxis d/t No contraindications Inclusion Criteria - Per Current guidelines, there needs to be overlap - treatment for the first 5 days of Warfarin therapy. - Parenteral Anticoagulation (IV or SC) needs to be - given along with Warfarin therapy. VTE Diagnosis No VTE Type NONE VTE Confirmed by (Test) NONE Problem List As ranked by this Provider includes Assessment & Plan 1. Cellulitis HOME MEDS Home Med List Aspirin (Ecotrin*) 81 MG TABLET.DR 1 TAB PO DAILY HEART HEALTH (Reported) Lamotrigine (Lamictal) 25 MG TABLET 25 MG PO DAILY Neuropathy Loratadine (Claritin) 10 MG TABLET 1 TAB PO DAILY NEEDED ALLERGIES ( Reported)
--- NOTE | 2016-10-28 17:05 | PN- Vascular Surgery ---
Subjective Subjective: Awake and alert post op Denies any pain or nausea, no complaints at this time States that she has been at [facility] since discharge last month and has been working with PT Objective Vital Signs and I&Os VSS, afebrile General: alert and oriented times three Chest: clear anteriorly bilaterally, RRR Abd: soft, good bs Ext: decreased sensation BLE - baseline per pt, good 5/5 SHANT LLE, 0-1/5 SHANT at right foot, good 5/5 SHANT at right knee, right toes are warm and positive sensate Wound: ROBINSON wrap from right mid thigh to foot, dressing is dry Assessment/Plan Assessment/Plan 60 yo female with MS and recent admit with rhabdo who has been at rehab since discharge - brought to the hospital for a debridement of the right popliteal fossa wound - now admitted after an extensive debridement to the muscle Admit to Dr Mcqueen pain management - pt has decreased sensation of BLE and will likely not require much pain meds ID consult - FU OR cultures Ancef at this time while awaiting cultures per Dr Acosta Will consult urology as pt sees Dr Luu and had a recent ESWAL and presented with a españa. Keep españa for now Will let wound care clinic aware of pts admission as they are following/managing the fasciotomy wounds to RLE MS - pt takes tysabri monthly and is due for her dose. Will try to reach Dr Garrett for further information and recommendations Plan for packing changes daily to right pop fossa wound Will likely need further debridement later this week. 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 No Antibiotics Is Patient on Antibiotics? Yes If Yes: infection
[2016-10-29 03:36] VITALS: BP 122/70
[2016-10-29 08:05] LABS: ABSOLUTE BASOPHIL COUNT 0.1 /CUMM (0.0-0.2); ABSOLUTE EOSINOPHIL COUNT 0.4 /CUMM (0.0-0.7); ABSOLUTE GRANULOCYTE CT 6.2 /CUMM (1.4-6.5); ABSOLUTE LYMPH COUNT 4.1 /CUMM (1.2-3.4); ABSOLUTE MONOCYTE COUNT 0.9 /CUMM (0.10-0.60); BASOPHIL % 0.5 % (0.0-2.0); EOSINOPHIL % 3.8 % (0-5); GRANULOCYTE % 52.8 % (42.2-75.2); HEMATOCRIT 29.7 % (37-47); MEAN CORPUSCULAR HGB 29.1 PG (27.0-31.0); MEAN CORPUSCULAR HGB CONC 32.9 G/DL (33.0-37.0); MEAN CORPUSCULAR VOLUME 88.6 FL (81.0-99.0); MEAN PLATELET VOLUME 6.9 FL (7.4-10.4); PLATELET COUNT 464 /CUMM (130-400); RBC DISTRIBUTION WIDTH 15.9 % (11.5-14.5); RED BLOOD CELL CT 3.35 /CUMM (4.20-5.40)
--- NOTE | 2016-10-29 08:43 | PN- Vascular Surgery ---
Subjective Subjective: The patient seen this morning postoperatively day #1. She reports that she is comfortable and has no pain in the operative leg. She has no complaints at the current time. Objective Vital Signs and I&Os Vital Signs Date Time Temp Pulse Resp B/P B/P Pulse O2 O2 Flow FiO2 Mean Ox Delivery Rate 10/29 0336 98.6 84 16 122/70 96 Room Air 10/28 2330 98.7 96 16 90/50 96 Room Air 10/28 2150 98 96/62 10/28 2147 98.4 108 20 90/54 95 10/28 1943 98.5 118 20 94/64 95 Room Air 10/28 1930 99 98/60 10/28 1754 97.8 92 15 96/60 97 Room Air Intake & Output 10/29 1600 10/29 0810/29 0000 10/28 1600 10/28 0800 10/28 0000 Intake Total 600 600 Output Total 800 225 Balance -200 375 Intake, IV 600 600 Output, Urine 800 225 Patient 125 lb Weight Physical Exam: Gen.: Alert and in no obvious distress Skin: Warm and dry Extremities: Bilateral lower extremities are warm without calf tenderness or significant edema. Right lower extremities dressings clean, dry, and intact. Gross motor and sensory are intact. Assessment/Plan Assessment/Plan Assessment: 60-year-old female status post I&D and debridement of popliteal fossa wound postoperative day #1. The patient is progressing as expected and her pain is under adequate control. Plan: Follow-up operating room cultures Continue IV Unasyn and follow-up ID recommendations Daily dressing change and packing Out of bed Follow-up with urology with regards to Carlson catheter Follow-up morning laboratory studies GI and DVT prophylaxis Core Measures/Miscellaneous Carlson Catheter Date In: 10/28/16 Venous Thromboembolism VTE Risk Factors: Age > 40, Surgery VTE Contraindications: No Contraindications VTE Diagnosis: No VTE Type: NONE VTE Confirmed by (Test): NONE Beta Danyell Is Beta Danyell a Home Med? No Antibiotics Is Patient on Antibiotics? Yes If Yes: infection
[2016-10-29 09:12] LABS: WHITE BLOOD CELL COUNT 11.7 /CUMM (4.8-10.8)
--- NOTE | 2016-10-29 11:34 | PN- Infect Dx ---
Subjective Subjective: Afebrile without complaints. She does not report any pain in the right leg. Objective Last 24 Hrs of Vital Signs/I&O Vital Signs Date Time Temp Pulse Resp B/P B/P Pulse O2 O2 Flow FiO2 Mean Ox Delivery Rate 10/29 0336 98.6 84 16 122/70 96 Room Air 10/28 2330 98.7 96 16 90/50 96 Room Air 10/28 2150 98 96/62 10/28 2147 98.4 108 20 90/54 95 10/28 1943 98.5 118 20 94/64 95 Room Air 10/28 1930 99 98/60 10/28 1754 97.8 92 15 96/60 97 Room Air Intake & Output 10/29 1600 10/29 0800 10/29 0000 Intake Total 600 600 Output Total 800 225 Balance -200 375 Intake, IV 600 600 Output, Urine 800 225 Patient 125 lb Weight Physical Exam Other Physical Findings: She appears comfortable in no acute distress Lungs are clear Extremities right leg dressing intact Results Last 24 Hours of Lab Results: Laboratory Tests 10/29 0620 Chemistry Sodium (137 - 145 mmol/L) 136 L Potassium (3.5 - 5.1 mmol/L) 4.8 Chloride (98 - 107 mmol/L) 100 Carbon Dioxide (22 - 30 mmol/L) 26 Anion Gap (5 - 16) 10 BUN (7 - 17 mg/dL) 13 Creatinine (0.5 - 1.0 mg/dL) 0.6 Estimated GFR (>60 ml/min) > 60 BUN/Creatinine Ratio (7 - 25 %) 21.7 Hematology CBC w Diff NO MAN DIFF REQ WBC (4.8 - 10.8 /CUMM) 11.7 H RBC (4.20 - 5.40 /CUMM) 3.35 L Hgb (12.0 - 16.0 G/DL) 9.8 L Hct (37 - 47 %) 29.7 L MCV (81.0 - 99.0 FL) 88.6 MCH (27.0 - 31.0 PG) 29.1 RDW (11.5 - 14.5 %) 15.9 H Plt Count (130 - 400 /CUMM) 464 H MPV (7.4 - 10.4 FL) 6.9 L Gran % (42.2 - 75.2 %) 52.8 Lymphocytes % (20.5 - 51.1 %) 34.9 Monocytes % (1.7 - 9.3 %) 8.0 Eosinophils % (0 - 5 %) 3.8 Basophils % (0.0 - 2.0 %) 0.5 Absolute Granulocytes (1.4 - 6.5 /CUMM) 6.2 Absolute Lymphocytes (1.2 - 3.4 /CUMM) 4.1 H Absolute Monocytes (0.10 - 0.60 /CUMM) 0.9 H Absolute Eosinophils (0.0 - 0.7 /CUMM) 0.4 Absolute Basophils (0.0 - 0.2 /CUMM) 0.1 PUBS MCHC (33.0 - 37.0 G/DL) 32.9 L Last 24 Hours of Meet Results: OR culture right leg October 28 positive for non-lactose fermenting gram-negative rods and gram-positive cocci Assessment/Plan Impression: Stable status post debridement of the muscle and soft tissues of the posterior aspect of the right leg yesterday for a necrotic wound that apparently developed following anterior and lateral fasciotomies performed 7 weeks prior to admission following trauma. She remains afebrile with a mild leukocytosis on Unasyn, which was begun empirically yesterday, but, with OR culture revealing non- lactose fermenting gram negative rods, her antibiotics will need to be adjusted pending final results. Suggestion: 1. Follow-up final OR cultures 2. Urology follow-up regarding removal of the Carlson catheter 3. Discontinue Unasyn 4. Begin Meropenem 1 g IV every 8 hours pending above
--- NOTE | 2016-10-29 14:50 | CT SCAN REPORT ---
EXAMINATION: CT LOWER EXTREMITY WITH CONTRAST, RIGHT CLINICAL INFORMATION: Postop right popliteal fossa irrigation and debridement, right lower extremity fasciotomy. Rule out necrotizing fasciitis. COMPARISON: None. TECHNIQUE: Multidetector volumetric imaging was obtained through the right lower extremity from the anterior superior iliac spine through the right foot following the intravenous administration of 94 mL Optiray 320 intravenous contrast material. Multiplanar reformatted images in coronal and sagittal orientations were submitted. DLP: 4623.6 mGy-cm FINDINGS: There is an open wound at the posterior aspect of the proximal calf musculature at the popliteal fossa extending through the skin and subcutaneous fat into the proximal portion of the lateral head of the gastrocnemius muscle. Packing material is present within the defect. The wound measures 3.5 x 5.5 cm in area and 3 cm in depth. There is surrounding skin thickening and subcutaneous edema. There is a large area of central nonenhancement and peripheral rim enhancement within the superficial and the deep posterior compartments of the calf, most pronounced in the lateral head of the gastrocnemius muscle, the soleus muscle, and the tibialis posterior. There is also likely involvement of the popliteus muscle at the cephalad extent of the abnormality and the flexor hallucis longus muscle at the inferior extent. This appearance is most compatible with muscle necrosis. Foci of gas are present within the gastrocnemius and soleus muscles, though these foci extend from the site of surgery and may be postsurgical as opposed to infectious in nature. Of note, this abnormality is primarily within the musculature itself as opposed to within the surrounding fascial planes. There is swelling of the lateral and anterior compartment musculature without discrete areas of necrosis. No gas is seen in this region. The superficial fat overlying the anterior and lateral compartment musculature is thinned with soft tissue density, possibly due to a superimposed area of anterior inflammation or cellulitis. The right hip and thigh musculature is normal in appearance without evidence of myonecrosis or fasciitis. Intrinsic foot musculature is unremarkable. No fracture or malalignment. Bones are intact without evidence of significant osteolysis. No knee joint effusion. No Haji's cyst. A Carlson catheter is present within the bladder. A large amount of stool is present at the rectum. Multiple borderline enlarged lymph nodes are present in the right hemipelvis and right inguinal region. Right obturator lymph nodes measure up to 1 cm in diameter. Intrapelvic soft tissues are otherwise unremarkable. IMPRESSION: Open wound at the posterior aspect of the proximal calf with significant underlying myonecrosis in the superficial and deep posterior compartment calf musculature. This appearance is most typical of an infectious myositis. Foci of gas within the musculature may be due to infection or due to the recent surgery. The pattern is not typical of necrotizing fasciitis as the abnormalities appear to be tracking within the muscle tissue as opposed to within the surrounding fascial planes and the gas is predominately restricted to the area around the surgical site.
[2016-10-29 15:04] VITALS: BP 120/64
[2016-10-29 22:45] VITALS: BP 105/55
[2016-10-30 06:40] VITALS: BP 99/62
--- NOTE | 2016-10-30 07:17 | PN- Vascular Surgery ---
Subjective Subjective: The patient was seen this morning postoperatively day #2. She reports that she is comfortable and that her pain is under adequate control. She has no other complaints the current time and is eager to attempt to ambulate with physical therapy today. Objective Vital Signs and I&Os Vital Signs Date Time Temp Pulse Resp B/P B/P Pulse O2 O2 Flow FiO2 Mean Ox Delivery Rate 10/30 0640 98.7 93 16 99/62 96 Room Air 10/29 2245 97.9 89 17 105/55 98 Room Air 10/29 1504 97.8 79 18 120/64 96 10/29 1130 Room Air Intake & Output 10/30 0800 10/30 0000 10/29 1600 10/29 0800 10/29 0000 10/28 1600 Intake Total 600 600 Output Total 250 450 800 800 225 Balance -250 -450 -800 -200 375 Intake, IV 600 600 Number 1 Bowel Movements Output, Urine 250 450 800 800 225 Patient 125 lb Weight Physical Exam: Gen.: Alert and in no obvious distress Skin: Warm and dry Extremities: Bilateral lower extremities are warm without calf tenderness or significant edema. Gross motor and sensory are intact. Right leg surgical dressing is clean, dry, and intact. Assessment/Plan Assessment/Plan Assessment: 60-year-old female status post I&D and debridement of popliteal fossa wound postoperative day #2. The patient is progressing as expected and her pain is under adequate control. Plan: Renew Carlson catheter Follow-up morning laboratory studies Continue antibiotics and follow up her final cultures GI and DVT prophylaxis Continue current pain regiment Out of bed with physical therapy Follow-up infectious disease consultation recommendations Daily dressing change with Betadine packing and dry dressing Core Measures/Miscellaneous Carlson Catheter Date In: 10/28/16 Venous Thromboembolism VTE Risk Factors: Age > 40, Surgery VTE Contraindications: No Contraindications VTE Diagnosis: No VTE Type: NONE VTE Confirmed by (Test): NONE Beta Danyell Is Beta Danyell a Home Med? No Antibiotics Is Patient on Antibiotics? Yes If Yes: infection
[2016-10-30 07:57] LABS: ABSOLUTE BASOPHIL COUNT 0.1 /CUMM (0.0-0.2); ABSOLUTE EOSINOPHIL COUNT 0.5 /CUMM (0.0-0.7); ABSOLUTE GRANULOCYTE CT 6.9 /CUMM (1.4-6.5); ABSOLUTE LYMPH COUNT 4.5 /CUMM (1.2-3.4); ABSOLUTE MONOCYTE COUNT 0.8 /CUMM (0.10-0.60); BASOPHIL % 0.9 % (0.0-2.0); EOSINOPHIL % 3.6 % (0-5); GRANULOCYTE % 54.1 % (42.2-75.2); HEMATOCRIT 34.6 % (37-47); MEAN CORPUSCULAR HGB 28.4 PG (27.0-31.0); MEAN PLATELET VOLUME 7.3 FL (7.4-10.4); PLATELET COUNT 517 /CUMM (130-400); RBC DISTRIBUTION WIDTH 16.3 % (11.5-14.5); RED BLOOD CELL CT 3.89 /CUMM (4.20-5.40); WHITE BLOOD CELL COUNT 12.7 /CUMM (4.8-10.8)
--- NOTE | 2016-10-30 13:24 | PN- Infect Dx ---
Subjective Subjective: Afebrile without complaints Objective Last 24 Hrs of Vital Signs/I&O Vital Signs Date Time Temp Pulse Resp B/P B/P Pulse O2 O2 Flow FiO2 Mean Ox Delivery Rate 10/30 0640 98.7 93 16 99/62 96 Room Air 10/29 2245 97.9 89 17 105/55 98 Room Air 10/29 1504 97.8 79 18 120/64 96 Intake & Output 10/30 1600 10/30 0800 10/30 0000 Intake Total 560 Output Total 250 450 Balance 560 -250 -450 Intake, Oral 560 Number 1 Bowel Movements Output, Urine 250 450 Patient 125 lb Weight Physical Exam Other Physical Findings: She appears comfortable in no acute distress Extremities right leg dressing intact Carlson catheter remains in place Results Last 24 Hours of Lab Results: Laboratory Tests 10/30 629 Hematology CBC w Diff MAN DIFF ORDERED WBC (4.8 - 10.8 /CUMM) 12.7 H RBC (4.20 - 5.40 /CUMM) 3.89 L Hgb (12.0 - 16.0 G/DL) 11.1 L Hct (37 - 47 %) 34.6 L MCV (81.0 - 99.0 FL) 89.0 MCH (27.0 - 31.0 PG) 28.4 RDW (11.5 - 14.5 %) 16.3 H Plt Count (130 - 400 /CUMM) 517 H MPV (7.4 - 10.4 FL) 7.3 L Gran % (42.2 - 75.2 %) 54.1 Lymphocytes % (20.5 - 51.1 %) 35.1 Monocytes % (1.7 - 9.3 %) 6.3 Eosinophils % (0 - 5 %) 3.6 Basophils % (0.0 - 2.0 %) 0.9 Absolute Granulocytes (1.4 - 6.5 /CUMM) 6.9 H Absolute Lymphocytes (1.2 - 3.4 /CUMM) 4.5 H Absolute Monocytes (0.10 - 0.60 /CUMM) 0.8 H Absolute Eosinophils (0.0 - 0.7 /CUMM) 0.5 Absolute Basophils (0.0 - 0.2 /CUMM) 0.1 Platelet Estimate (ADEQUATE) VERIFIED BY SMEAR Polychromasia 1+ Anisocytosis 1+ PUBS MCHC (33.0 - 37.0 G/DL) 32.0 L Last 24 Hours of Meet Results: OR culture labeled right leg October 28 positive for Pseudomonas sensitive to all antibiotics tested and coag-negative Staph Recent Imaging Studies: CT of the right leg October 29 revealed significant underlying myonecrosis in the superficial and deep posterior compartment of the calf musculature, with foci of gas noted within the musculature Assessment/Plan Impression: Stable status post debridement of the muscle and soft tissues of the posterior aspect of the right leg 2 days ago for a necrotic wound that apparently developed following anterior and lateral fasciotomies performed 7 weeks prior to admission following trauma. The recent CT scan suggests the possibility of progression of the infection and further debridement may be necessary. She remains afebrile with white blood cell count increased slightly now on Meropenem , with the OR culture growing Pseudomonas and coag-negative Staph. The significance of this latter organism is unclear as it is not a typical pathogen in this setting. Her Carlson catheter remains in place, apparently per Urology, though it would be preferable to consider alternatives, for example a suprapubic cystostomy, if urinary retention persists and a straight catheterization protocol is not feasible. Suggestion: 1. Follow-up final OR culture 2. Would remove Carlson catheter and initiate straight cath protocol while in hospital 3. Discontinue Meropenem 4. Begin Ceftazidime 2 grams IV every 8 hours Nay Lewis MD will be covering me until November 05
[2016-10-30 14:33] VITALS: BP 120/70
--- NOTE | 2016-10-30 18:28 | PN- Vascular Surgery ---
Surgical Brief Attending Note Brief Attending Note: Discussed with patient. significant necrotic infection right calf from skin wound. will need more debridement. However, significant muscle will be lost in the posterior calf, which will make function difficult. in addition, there is signficant neurologic compromise at this point (of unknown etiology). Will plan on re-debridement. Limb salvage may be a challenge. Discussed in detail with patient and at bedside.
[2016-10-30 22:24] VITALS: BP 94/54
[2016-10-31 07:18] VITALS: BP 90/60
[2016-10-31 08:40] LABS: ABSOLUTE BASOPHIL COUNT 0.1 /CUMM (0.0-0.2); ABSOLUTE EOSINOPHIL COUNT 0.5 /CUMM (0.0-0.7); ABSOLUTE GRANULOCYTE CT 4.2 /CUMM (1.4-6.5); ABSOLUTE LYMPH COUNT 4.6 /CUMM (1.2-3.4); ABSOLUTE MONOCYTE COUNT 0.9 /CUMM (0.10-0.60); BASOPHIL % 0.5 % (0.0-2.0); EOSINOPHIL % 4.9 % (0-5); GRANULOCYTE % 41.2 % (42.2-75.2); MEAN CORPUSCULAR HGB 29.2 PG (27.0-31.0); MEAN CORPUSCULAR HGB CONC 32.9 G/DL (33.0-37.0); MEAN CORPUSCULAR VOLUME 88.8 FL (81.0-99.0); MEAN PLATELET VOLUME 7.2 FL (7.4-10.4); PLATELET COUNT 474 /CUMM (130-400); RBC DISTRIBUTION WIDTH 16.2 % (11.5-14.5); RED BLOOD CELL CT 3.49 /CUMM (4.20-5.40); WHITE BLOOD CELL COUNT 10.3 /CUMM (4.8-10.8)
--- NOTE | 2016-10-31 10:24 | PN- General Surgery ---
Subjective Subjective: States she was able to ambulate distance from room to nursing station with walker yeaterday Denies significant pain Objective Vital Signs and I&Os Vital Signs Date Time Temp Pulse Resp B/P B/P Pulse O2 O2 Flow FiO2 Mean Ox Delivery Rate 10/31 0718 97.4 88 20 90/60 96 Room Air 10/30 2224 97.5 102 18 94/54 96 10/30 1449 Room Air 10/30 1433 99.3 102 18 120/70 95 Intake & Output 10/31 1600 10/31 0810/31 0000 10/30 1600 10/30 0810/30 0000 Intake Total 120 730 800 Output Total 200 301 250 450 Balance -80 429 800 -250 -450 Intake, IV 0 130 Intake, Oral 120 600 800 Number 0 1 Bowel Movements Output, Stool 1 Output, Urine 200 300 250 450 Patient 125 lb Weight Alert, oriented , appropriate sitting in chair Lungs clear Heart regular Abdomen soft Carlson in place with clear yellow urine.Adequate amounts RLE warm to touch, well perfused, appropriate sensation and ROM Dressing removed. Significant odor when dressing removed. Popliteal wound with moderate amounts of pale tissue/ muscle with fibrinous exudate,yellow/ gren discoloration.Periwound skin withy mild erythrema. No tenderness to touch.S. Lateral aspect with skin abrasion without infection. Dressing changed: moist gauze with Betadine placed within the wound, covered with dry gauze and ABD pad, wrapped in Kerlix. Assessment/Plan Assessment/Plan s/p I&D of Popliteal fossa wound on RLE.POD #3. Wound with significant non viable tissue and odor. Cont. daily dressing changes, may consider bid. Final Cx with Pseudomona/ staph. / Diphteroids, appropriately covered with Fortaz IV . Followed by ID team. Inctrease ambulation Cont. DVT prophylaxis Pt. has chronic Carlson Will review case with team. Core Measures/Miscellaneous Carlson Catheter Date In: 10/28/16 Venous Thromboembolism VTE Risk Factors: Age > 40, Surgery VTE Contraindications: No Contraindications VTE Diagnosis: No VTE Type: NONE VTE Confirmed by (Test): NONE Beta Danyell Is Beta Danyell a Home Med? No Antibiotics Is Patient on Antibiotics? Yes If Yes: infection
--- NOTE | 2016-10-31 14:41 | Cons- Plastic Surgery ---
General Information and HPI Consulting Request Date of Consult: 10/31/16 Requested By: TONY HERMAN MD Reason for Consult: Wound right leg History of Present Illness: Patient has MS and was found at home after questionable injury involving the right leg. She was described she was found by her who provided this particular history. She was found with her right leg over a foot rest. He reports pressure might have been on the popliteal area on a relatively soft cushion. Downside to be 2-3 hours. She reports for evaluation. She subsequently underwent a lateral right leg fasciotomy. An MRI shows myonecrosis of the superficial and deep posterior compartments. Allergies/Medications Allergies: Coded Allergies: NO KNOWN ALLERGIES (04/27/14) Home Med List: Aspirin (Ecotrin*) 81 MG TABLET.DR 1 TAB PO DAILY HEART HEALTH (Reported) Lamotrigine (Lamictal) 25 MG TABLET 25 MG PO DAILY Neuropathy Loratadine (Claritin) 10 MG TABLET 1 TAB PO DAILY NEEDED ALLERGIES ( Reported) Current Medications: Current Medications Sig/Ronak Start time Last Medication Dose Route Stop Time Status Admin Acetaminophen 650 MG .STK-MED ONE 10/31 0313 DC PO 10/31 0314 Acetaminophen 650 MG Q6P PRN 10/28 1700 AC 10/31 PO 0312 Aspirin Buffered 81 MG DAILY 10/29 1000 AC 10/31 PO 0817 Ceftazidime 2,000 MG IQ8 10/30 1600 AC 10/31 Dextrose/Water 50 ML IV 0811 Docusate Sodium 100 MG DAILY 10/29 1000 AC 10/31 PO 0816 Heparin Sodium 5,000 UNIT Q8 10/28 2200 AC 10/31 (Porcine) SC 1339 Lamotrigine 25 MG DAILY 10/29 1000 AC 10/31 PO 0817 Ondansetron HCl 4 MG Q6P PRN 10/28 1700 AC IV Oxycodone/ 2 TAB Q4P PRN 10/28 1700 AC Acetaminophen PO Past History Medical History Blood Transfusion Hx: No Neurological: multiple sclerosis, trigeminal neuralgia EENT: NONE Cardiovascular: hyperlipidemia Respiratory: NONE Gastrointestinal: constipation Hepatic: NONE Renal: nephrolithiasis Musculoskeletal: falls, fracture Psychiatric: NONE Endocrine: NONE Blood Disorders: NONE Cancer(s): NONE PRESENTATION MANAGER/Reproductive: NONE Surgical History Pertinent Surgical History: appendectomy Psychosocial History Services at Home: None Smoking Status: Former Smoker Review of Systems Review of Systems: Patient feels well all of the systems negative Exam & Diagnostic Data Vital Signs and I&O Vital Signs Date Time Temp Pulse Resp B/P B/P Pulse O2 O2 Flow FiO2 Mean Ox Delivery Rate 10/31 0800 Room Air 10/31 0718 97.4 88 20 90/60 96 Room Air 10/30 2224 97.5 102 18 94/54 96 10/30 1449 Room Air 10/30 1433 99.3 102 18 120/70 95 Intake & Output 10/31 1600 10/31 0810/31 0000 10/30 1600 10/30 0000 Intake Total 120 730 800 Output Total 200 301 250 450 Balance -80 429 800 -250 -450 Intake, IV 0 130 Intake, Oral 120 600 800 Number 0 1 Bowel Movements Output, Stool 1 Output, Urine 200 300 250 450 Patient 125 lb Weight Physical Exam: Examination of the right lower extremity shows the following: The right foot is held in dorsiflexion and the skin is warm. There is a defect on the proximal posterior lateral aspect of the leg. It is deep with some foul odor no active purulent contents minimal surrounding cellulitis evidence of muscle tissue that is exposed depth of the wound is fully necrotic and moist. there is a healing lateral fasciotomy site with granulation tissue throughout and no cellulitis. She has weak plantar flexion but present and minimal dorsiflexion. Assessment/Plan Assessment/Plan Myonecrosis of the superficial and deep posterior compartments which is the majority of MRI involvement. It is most reasonable to consider an incision laterally or posteriorly to access areas of necrosis for operative debridement and ensure an adequate skin bridge to avoid intervening ischemic compromise of the second lateral incision. Consult Acknowledgment - Thank you for your consult request.
[2016-10-31 15:46] VITALS: BP 98/58
--- NOTE | 2016-10-31 18:16 | PN- Infect Dx ---
Subjective Subjective: POD #3She reports that she is comfortable and that her pain is under adequate control. She has no other complaints the current time. Review of Systems Comments: 12 points reviewed as noted, otherwise negative. Objective Last 24 Hrs of Vital Signs/I&O Vital Signs Date Time Temp Pulse Resp B/P B/P Pulse O2 O2 Flow FiO2 Mean Ox Delivery Rate 10/31 1616 Room Air 10/31 1615 Room Air 10/31 1546 98.1 83 18 98/58 98 10/31 0800 Room Air 10/31 0718 97.4 88 20 90/60 96 Room Air 10/30 2224 97.5 102 18 94/54 96 Intake & Output 10/31 1600 10/31 0800 10/31 0000 Intake Total 810 120 730 Output Total 650 200 301 Balance 160 -80 429 Intake, IV 130 0 130 Intake, Oral 680 120 600 Number 0 Bowel Movements Output, Stool 1 Output, Urine 650 200 300 Physical Exam Other Physical Findings: Gen.: Alert and in no acute distress HEENT AT/sclera anicteric Neck No JANETH/JVD Lungs:BS present Heart S1 S2 present, no r/g Abd: soft, + BS Extremities: Bilateral lower extremities are warm without calf tenderness or significant edema. Gross motor and sensory are intact. Right leg surgical dressing is clean, dry, and intact. Skin: Warm and dry Results Last 24 Hours of Lab Results: Laboratory Tests 10/31 0625 Chemistry Sodium (137 - 145 mmol/L) 139 Potassium (3.5 - 5.1 mmol/L) 4.9 Chloride (98 - 107 mmol/L) 102 Carbon Dioxide (22 - 30 mmol/L) 26 Anion Gap (5 - 16) 11 BUN (7 - 17 mg/dL) 14 Creatinine (0.5 - 1.0 mg/dL) 0.7 Estimated GFR (>60 ml/min) > 60 BUN/Creatinine Ratio (7 - 25 %) 20.0 Hematology CBC w Diff NO MAN DIFF REQ WBC (4.8 - 10.8 /CUMM) 10.3 RBC (4.20 - 5.40 /CUMM) 3.49 L Hgb (12.0 - 16.0 G/DL) 10.2 L Hct (37 - 47 %) 31.0 L MCV (81.0 - 99.0 FL) 88.8 MCH (27.0 - 31.0 PG) 29.2 RDW (11.5 - 14.5 %) 16.2 H Plt Count (130 - 400 /CUMM) 474 H MPV (7.4 - 10.4 FL) 7.2 L Gran % (42.2 - 75.2 %) 41.2 L Lymphocytes % (20.5 - 51.1 %) 44.6 Monocytes % (1.7 - 9.3 %) 8.8 Eosinophils % (0 - 5 %) 4.9 Basophils % (0.0 - 2.0 %) 0.5 Absolute Granulocytes (1.4 - 6.5 /CUMM) 4.2 Absolute Lymphocytes (1.2 - 3.4 /CUMM) 4.6 H Absolute Monocytes (0.10 - 0.60 /CUMM) 0.9 H Absolute Eosinophils (0.0 - 0.7 /CUMM) 0.5 Absolute Basophils (0.0 - 0.2 /CUMM) 0.1 PUBS MCHC (33.0 - 37.0 G/DL) 32.9 L Last 24 Hours of Meet Results: SPEC #: [id number] BERTRAM: 10/28/16 STATUS: COMP RECD: 10/28/16-[address]: BATSHEVA PHELPS,TONY GARDINER SOURCE: EXTREMITIE ENTR: 10/28/16-[address]: SAURABH PHELPS,ROSEMARY SPDESC: LEG RT LOW ORDERED: XTRMOR COMMENT: ADDITIONAL INFORMATION: DEBRIDED TISSUE POSSIBLE MUSCLE LG PIECE TISSUE IN CUP Procedure Result > GRAM STAIN Final 10/29/16-1031 WHITE BLOOD CELLS RARE GRAM POSITIVE COCCI MANY GRAM NEGATIVE RODS MANY > EXTREMITIES OR SPECIMEN Final 10/30/16-1435 AFTER 2 DAYS: 1. Moderate growth of: PSEUDOMONAS AERUGINOSA 2. Heavy growth of: STAPH COAGULASE NEGATIVE 3. Scant growth of DIPHTHEROIDS Preliminary Called to/Readback by LYLE by REJI 10/29/16 0904 P. aerugin Coag Neg RX AB RX AB ------ -- ------ -- AMPICILLIN R CEFAZOLIN R AMOX/CLAV AUGM R AMP/SULB-UNASYN R CEFTAZIDIME S CIPROFLOXACIN S GENTAMICIN S MEROPENEM S PIP/TAZOBACTAM S TETRACYCLINE R TRIMETH/SULFA S AZITHROMYCIN R CLINDAMYCIN R ERYTHROMYCIN R OXACILLIN R VANCOMYCIN S 1. PSEUDOMONAS AERUGINOSA RX AB ------ -- CEFTAZIDIME S CIPROFLOXACIN S GENTAMICIN S MEROPENEM S PIPERACILLIN/TAZOBACTAM S 2. STAPH COAGULASE NEGATIVE RX AB ------ -- AMPICILLIN R CEFAZOLIN R AMOXICILLIN/CLAVULINIC ACID R AMPICILLIN/SULBACTAM R TETRACYCLINE R TRIMETHOPRIM/SULFAMETHOXAZOLE S AZITHROMYCIN R CLINDAMYCIN R ERYTHROMYCIN R OXACILLIN R VANCOMYCIN S Recent Imaging Studies: CT LE 10/29/16: IMPRESSION: Open wound at the posterior aspect of the proximal calf with significant underlying myonecrosis in the superficial and deep posterior compartment calf musculature. This appearance is most typical of an infectious myositis. Foci of gas within the musculature may be due to infection or due to the recent surgery. The pattern is not typical of necrotizing fasciitis as the abnormalities appear to be tracking within the muscle tissue as opposed to within the surrounding fascial planes and the gas is predominately restricted to the area around the surgical site. DICTATED BY: SHUKRI REARDON MD DATE/TIME DICTATED:10/29/161358 DOWEL SETTING MACHINE OPERATOR:JEANETTE DATE/TIME TRANSCRIBED:10/29/161358 Assessment/Plan Impression: 60-year-old woman with multiple sclerosis, nephrolitiasis admitted 10/28/16. Stable status post debridement of the muscle and soft tissues of the posterior aspect of the right for a necrotic wound that apparently developed following anterior and lateral fasciotomies performed 7 weeks prior to admission following trauma (s/p fall) The recent CT scan suggests the possibility of progression of the infection and further debridement may be necessary; plastic surgery consulted; the OR culture growing Pseudomonas, diphteroids and coag-negative Staph. H/o urinary retention; Carlson catheter remains in place/patent Suggestion: 1. Continue Ceftazidime 2 grams IV every 8 hours started previous day. 2. F/U plastic sx (Dr. Mari's ) recommendations. 3. Monitor CBC/BMP.
[2016-10-31 22:35] VITALS: BP 90/60
[2016-11-01 07:49] VITALS: BP 88/52
--- NOTE | 2016-11-01 08:43 | PN- Vascular Surgery ---
Subjective Subjective: No acute events overnight. Pain well controlled. Tolerating dressing changes. NPO overnight, but no surgery planned for today. Carlson in place. Objective Vital Signs and I&Os Vital Signs Date Time Temp Pulse Resp B/P B/P Pulse O2 O2 Flow FiO2 Mean Ox Delivery Rate 11/01 0749 97.6 76 19 88/52 96 Room Air 10/31 2235 98.3 96 18 90/60 95 Room Air 10/31 1616 Room Air 10/31 1615 Room Air 10/31 1546 98.1 83 18 98/58 98 Intake & Output 11/01 1600 11/01 0800 11/01 0000 10/31 1600 10/31 0800 10/31 0000 Intake Total 50 450 810 120 730 Output Total 325 450 650 200 301 Balance -275 0 160 -80 429 Intake, IV 50 130 0 130 Intake, Oral 450 680 120 600 Number 0 Bowel Movements Output, Stool 1 Output, Urine 325 450 650 200 300 Physical Exam: General: CAOx3, NAD. Lungs: Normal work of breathing Extremities: RLE posterior popliteal wound about 4 cm x 3 cm x 2 cm (depth) old packing removed, yellow fibrinous exudate debrided. No active bleeding. Packed with 1/4 dakins. +purulent drainage. RLE lateral calf wound pink with granulation tissue, xeroform applied. Foot warm and well perfused. Current Medications: Current Medications Sig/Ronak Start time Last Medication Dose Route Stop Time Status Admin Acetaminophen 650 MG .STK-MED ONE 10/31 2109 DC PO 10/31 211 Acetaminophen 650 MG Q6P PRN 10/28 1700 AC 11/01 PO 0037 Aspirin Buffered 81 MG DAILY 10/29 1000 AC 10/31 PO 0817 Ceftazidime 2,000 MG IQ8 10/30 1600 AC 11/01 Dextrose/Water 50 ML IV 0029 Docusate Sodium 100 MG DAILY 10/29 1000 AC 10/31 PO 0816 Heparin Sodium 5,000 UNIT Q8 10/28 2200 AC 11/01 (Porcine) SC 0609 Lamotrigine 25 MG DAILY 10/29 1000 AC 10/31 PO 0817 Ondansetron HCl 4 MG Q6P PRN 10/28 1700 AC IV Oxycodone/ 2 TAB Q4P PRN 10/28 1700 AC Acetaminophen PO Patient Medication 1 ED .STK-MED ONE 10/31 1434 DC Teaching ED 10/31 1435 Sodium Hypochlorite 1 AIDA DAILY 11/01 0715 TOP Results Last 48 Hours of Labs: Laboratory Tests 10/31 0625 Chemistry Sodium (137 - 145 mmol/L) 139 Potassium (3.5 - 5.1 mmol/L) 4.9 Chloride (98 - 107 mmol/L) 102 Carbon Dioxide (22 - 30 mmol/L) 26 Anion Gap (5 - 16) 11 BUN (7 - 17 mg/dL) 14 Creatinine (0.5 - 1.0 mg/dL) 0.7 Estimated GFR (>60 ml/min) > 60 BUN/Creatinine Ratio (7 - 25 %) 20.0 Hematology CBC w Diff NO MAN DIFF REQ WBC (4.8 - 10.8 /CUMM) 10.3 RBC (4.20 - 5.40 /CUMM) 3.49 L Hgb (12.0 - 16.0 G/DL) 10.2 L Hct (37 - 47 %) 31.0 L MCV (81.0 - 99.0 FL) 88.8 MCH (27.0 - 31.0 PG) 29.2 RDW (11.5 - 14.5 %) 16.2 H Plt Count (130 - 400 /CUMM) 474 H MPV (7.4 - 10.4 FL) 7.2 L Gran % (42.2 - 75.2 %) 41.2 L Lymphocytes % (20.5 - 51.1 %) 44.6 Monocytes % (1.7 - 9.3 %) 8.8 Eosinophils % (0 - 5 %) 4.9 Basophils % (0.0 - 2.0 %) 0.5 Absolute Granulocytes (1.4 - 6.5 /CUMM) 4.2 Absolute Lymphocytes (1.2 - 3.4 /CUMM) 4.6 H Absolute Monocytes (0.10 - 0.60 /CUMM) 0.9 H Absolute Eosinophils (0.0 - 0.7 /CUMM) 0.5 Absolute Basophils (0.0 - 0.2 /CUMM) 0.1 PUBS MCHC (33.0 - 37.0 G/DL) 32.9 L Assessment/Plan Assessment/Plan This is a 60-year-old female status post I&D and debridement of popliteal fossa wound on 10/28/2016 postoperative day #4. - Renew Carlson catheter - pain control: percocet - Heart healthy diet - Continue Fortaz. Final cultures with pseudomonas, staph coag negative, diphtheroids. Pseudomonas sensitive to Ceftaz. Continue to follow ID recommendations. - DVT prophylaxis: Heparin - Out of bed with physical therapy - Follow-up infectious disease consultation recommendations - Daily dressing change with Dakins 0.25% packing to wound, xeroform to RLE wound by surgery - Plan for further debridement tomorrow, not today Core Measures/Miscellaneous Carlson Catheter Date In: 10/28/16 Venous Thromboembolism VTE Risk Factors: Age > 40, Surgery VTE Contraindications: No Contraindications VTE Diagnosis: No VTE Type: NONE VTE Confirmed by (Test): NONE Beta Danyell Is Beta Danyell a Home Med? No Antibiotics Is Patient on Antibiotics? Yes If Yes: infection
[2016-11-01 11:11] LABS: PT 12.2 SEC (9.4-12.5)
[2016-11-01 14:19] VITALS: BP 118/58
--- NOTE | 2016-11-01 14:20 | PN- Infect Dx ---
Subjective Subjective: No acute events overnight. Pain well controlled. Tolerating dressing changes. NPO overnight, but no surgery planned for today. Carlson in place. Review of Systems Comments: 12 points reviewed as noted, otherwise negative. Objective Last 24 Hrs of Vital Signs/I&O Vital Signs Date Time Temp Pulse Resp B/P B/P Pulse O2 O2 Flow FiO2 Mean Ox Delivery Rate 11/01 0749 97.6 76 19 88/52 96 Room Air 10/31 2235 98.3 96 18 90/60 95 Room Air 10/31 1616 Room Air 10/31 1615 Room Air 10/31 1546 98.1 83 18 98/58 98 Intake & Output 11/01 1600 11/01 0800 11/01 0000 Intake Total 50 450 Output Total 300 325 450 Balance -300 -275 0 Intake, IV 50 Intake, Oral 450 Number 1 Bowel Movements Output, Urine 300 325 450 Physical Exam Other Physical Findings: Gen.: Alert and in no acute distress HEENT AT/sclera anicteric Neck No JANETH/JVD Lungs:BS present Heart S1 S2 present, no r/g Abd: soft, + BS Extremities: Bilateral lower extremities are warm without calf tenderness or significant edema. Gross motor and sensory are intact. Right leg surgical dressing is clean, dry, and intact. Skin: Warm and dry Results Last 24 Hours of Lab Results: Laboratory Tests 11/01 1042 Coagulation PT (9.4 - 12.5 SEC) 12.2 INR (0.90 - 1.19) 1.16 Last 24 Hours of Meet Results: SPEC #: [id number] BERTRAM: 10/28/16 STATUS: COMP RECD: 10/28/16-[address]: BATSHEVA PHELPS,TONY GARDINER SOURCE: EXTREMITIE ENTR: 10/28/16-[address]: SAURABH PHELPS,ROSEMARY SPDESC: LEG RT LOW ORDERED: XTRMOR COMMENT: ADDITIONAL INFORMATION: DEBRIDED TISSUE POSSIBLE MUSCLE LG PIECE TISSUE IN CUP Procedure Result > GRAM STAIN Final 10/29/16-1031 WHITE BLOOD CELLS RARE GRAM POSITIVE COCCI MANY GRAM NEGATIVE RODS MANY > EXTREMITIES OR SPECIMEN Final 10/30/16-1435 AFTER 2 DAYS: 1. Moderate growth of: PSEUDOMONAS AERUGINOSA 2. Heavy growth of: STAPH COAGULASE NEGATIVE 3. Scant growth of DIPHTHEROIDS Preliminary Called to/Readback by LYLE by REJI 10/29/16 0904 P. aerugin Coag Neg RX AB RX AB ------ -- ------ -- AMPICILLIN R CEFAZOLIN R AMOX/CLAV AUGM R AMP/SULB-UNASYN R CEFTAZIDIME S CIPROFLOXACIN S GENTAMICIN S MEROPENEM S PIP/TAZOBACTAM S TETRACYCLINE R TRIMETH/SULFA S AZITHROMYCIN R CLINDAMYCIN R ERYTHROMYCIN R OXACILLIN R VANCOMYCIN S 1. PSEUDOMONAS AERUGINOSA RX AB ------ -- CEFTAZIDIME S CIPROFLOXACIN S GENTAMICIN S MEROPENEM S PIPERACILLIN/TAZOBACTAM S 2. STAPH COAGULASE NEGATIVE RX AB ------ -- AMPICILLIN R CEFAZOLIN R AMOXICILLIN/CLAVULINIC ACID R AMPICILLIN/SULBACTAM R TETRACYCLINE R TRIMETHOPRIM/SULFAMETHOXAZOLE S AZITHROMYCIN R CLINDAMYCIN R ERYTHROMYCIN R OXACILLIN R VANCOMYCIN S Recent Imaging Studies: n/a Assessment/Plan Impression: 60-year-old woman with multiple sclerosis, nephrolitiasis admitted 10/28/16. Stable status post debridement of the muscle and soft tissues of the posterior aspect of the right for a necrotic wound that apparently developed following anterior and lateral fasciotomies performed 7 weeks prior to admission following trauma (s/p fall) The recent CT scan suggests the possibility of progression of the infection and further debridement may be necessary; plastic surgery consulted; the OR culture growing Pseudomonas, diphteroids and coag-negative Staph. H/o urinary retention; Carlson catheter remains in place/patent Suggestion: 1. Continue Ceftazidime 2 grams IV every 8 hours started previous day. 2. F/U surgery recommendations. 3. Monitor CBC/BMP. 4. call if fever.
[2016-11-01 22:35] VITALS: BP 110/58
[2016-11-02 06:53] VITALS: BP 100/60
--- NOTE | 2016-11-02 11:18 | Operative Report ---
Operative/Inv Procedure Report Surgery Date: 11/02/16 Name of Procedure: Debridement and washout of right leg wound Pre-Operative Diagnosis: Necrotic right leg muscle and tissue Post-Operative Diagnosis: Same Estimated Blood Loss: scant Surgeon/Mule Driver: GALILEO CAMPOS MD Anesthesia: laryngeal mask airway Operative/Procedure Note Note: After an informed consent was obtained, the patient was taken to the operating room and placed supine on the table. A timeout was called according to the protocol. After satisfactory induction of anesthesia, the patient was prepped and draped in standard surgical fashion. The right posterior leg wound was examined. There was fair amount of necrotic tissue. These tissue where repeated. The necrotic tissue expanded superiorly, deep, and inferiorly. Using a scalpel, the wound was then extended longitudinally for about 10 centimeters. There was extensive necrosis of muscle and tissue. Large amount of foul- smelling necrotic muscle and tissue was debrided using curette as well as Metzenbaum scissors. This larger cavity now was mainly debrided of necrotic tissue. However, as mentioned above, the extent of the necrotic tissue expanded and ulnar direction. I decided to at some point stop. The wound was then copiously irrigated with sterile saline using Pulsavac. Then quarter percent taking soaked Kerlix was packed in the wound. Dry dressing was then applied. The count at the end of the case was correct. The patient was then taken to the recovery room in stable condition.
[2016-11-02 11:40] VITALS: BP 98/50
--- NOTE | 2016-11-02 12:11 | PN- Infect Dx ---
Subjective Subjective: No fever or chills; just returned from OR s/p R LE large amount of foul-smelling necrotic muscle and tissue debridement . Good appetite. Review of Systems Comments: 12 points reviewed as noted, otherwise negative. Objective Last 24 Hrs of Vital Signs/I&O Vital Signs Date Time Temp Pulse Resp B/P B/P Pulse O2 O2 Flow FiO2 Mean Ox Delivery Rate 11/02 1140 97.3 86 18 98/50 98 Room Air 11/02 0653 97.4 85 19 100/60 97 Room Air 11/01 2235 97.9 87 18 110/58 97 Room Air 11/01 1517 Room Air 11/01 1419 98.0 90 18 118/58 97 Intake & Output 11/02 1600 11/02 0800 11/02 0000 Intake Total 600 120 Output Total 250 350 Balance 350 -230 Intake, IV 600 Intake, Oral 0 120 Number 0 Bowel Movements Output, Urine 250 350 Physical Exam Other Physical Findings: Gen.: Alert and in no acute distress, thin HEENT AT/sclera anicteric Neck No JANETH/JVD Lungs:BS present Heart S1 S2 present, no m/r/g Abd: soft, + BS, Carlson patent draining cxlear urine Extremities: Bilateral lower extremities are warm without calf tenderness or significant edema. Gross motor and sensory are intact. Skin: Right leg surgical dressing is clean, dry, and intact. Results Last 24 Hours of Lab Results: n/a Last 24 Hours of Meet Results: SPEC #: [id number] BERTRAM: 10/28/16 STATUS: COMP RECD: 10/28/16-[address]: BATSHEVA PHELPS,TONY GARDINER SOURCE: EXTREMITIE ENTR: 10/28/16-[address]: ROSEMARY WILEY MD SPDESC: LEG RT LOW ORDERED: XTRMOR COMMENT: ADDITIONAL INFORMATION: DEBRIDED TISSUE POSSIBLE MUSCLE LG PIECE TISSUE IN CUP Procedure Result > GRAM STAIN Final 10/29/16-1031 WHITE BLOOD CELLS RARE GRAM POSITIVE COCCI MANY GRAM NEGATIVE RODS MANY > EXTREMITIES OR SPECIMEN Final 10/30/16-1435 AFTER 2 DAYS: 1. Moderate growth of: PSEUDOMONAS AERUGINOSA 2. Heavy growth of: STAPH COAGULASE NEGATIVE 3. Scant growth of DIPHTHEROIDS Preliminary Called to/Readback by LYLE by REJI 10/29/16 0904 P. aerugin Coag Neg RX AB RX AB ------ -- ------ -- AMPICILLIN R CEFAZOLIN R AMOX/CLAV AUGM R AMP/SULB-UNASYN R CEFTAZIDIME S CIPROFLOXACIN S GENTAMICIN S MEROPENEM S PIP/TAZOBACTAM S TETRACYCLINE R TRIMETH/SULFA S AZITHROMYCIN R CLINDAMYCIN R ERYTHROMYCIN R OXACILLIN R VANCOMYCIN S 1. PSEUDOMONAS AERUGINOSA RX AB ------ -- CEFTAZIDIME S CIPROFLOXACIN S GENTAMICIN S MEROPENEM S PIPERACILLIN/TAZOBACTAM S 2. STAPH COAGULASE NEGATIVE RX AB ------ -- AMPICILLIN R CEFAZOLIN R Recent Imaging Studies: n/a Assessment/Plan Impression: 60-year-old woman with multiple sclerosis, nephrolitiasis admitted 10/28/16. Stable status post debridement of the muscle and soft tissues of the posterior aspect of the right for a necrotic wound that developed following anterior and lateral fasciotomies performed 7 weeks prior to admission following trauma (s/p fall); polymicrobial infection The recent CT scan suggested progression of the infection; s/p debridement 11/02; plastic surgery folling; no new OR cultures noted H/o urinary retention; Carlson catheter remains in place/patent Suggestion: 1. Continue Ceftazidime 2 grams IV every 8 hours started 10/30 (D#10/18) 2. Wound care per sx. 3. Monitor CBC/BMP. 4. Call if fever.
[2016-11-02 14:18] VITALS: BP 100/62
--- NOTE | 2016-11-02 15:58 | PN- Vascular Surgery ---
Subjective Subjective: POD #1/5 s/p I&D to right posterior calf. Interm hx: Patient without pain, denies N/V, F/C, CP/SOB. Remains in chair. Chronic indwelling españa in place. Tolerating a regular diet. Objective Vital Signs and I&Os Vital Signs Date Time Temp Pulse Resp B/P B/P Pulse O2 O2 Flow FiO2 Mean Ox Delivery Rate 11/02 1418 97.1 110 19 100/62 97 11/02 1140 97.3 86 18 98/50 98 Room Air 11/02 0653 97.4 85 19 100/60 97 Room Air 11/01 2235 97.9 87 18 110/58 97 Room Air Intake & Output 11/02 1600 11/02 0800 11/02 0000 11/01 1600 11/02 0700 11/01 0000 Intake Total 600 120 550 50 450 Output Total 250 350 300 325 450 Balance 350 -230 250 -275 0 Intake, IV 600 50 Intake, Oral 0 120 550 450 Number 0 1 Bowel Movements Output, Urine 250 350 300 325 450 Physical Exam: Gen: AAOx3 in NAD Cor: S1+S2+ Lungs: CTA estrella Abd: soft, NT, ND, +BS x4 Ext: left lower extremity dressing saturated with serous drainage. Outer dressing removed and replaced. Foot warm, sensation diminished (was like that prior to admission per patient due to compartment syndrome). Current Medications: Current Medications Sig/Ronak Start time Last Medication Dose Route Stop Time Status Admin Acetaminophen 650 MG Q6P PRN 11/02 1115 AC PO Acetaminophen 650 MG .STK-MED ONE 11/01 2046 DC PO 11/02 2047 Acetaminophen 650 MG Q6P PRN 10/28 1700 DC 11/01 PO 204 Aspirin Buffered 81 MG DAILY 11/03 1000 AC PO Aspirin Buffered 81 MG DAILY 10/29 1000 DC 11/01 PO 0911 Ceftazidime 2,000 MG IQ8 11/02 1600 AC 11/02 Dextrose/Water 50 ML IV 1554 Ceftazidime 2,000 MG IQ8 10/30 1600 AC 11/02 Dextrose/Water 50 ML IV 11/02 1559 0752 Docusate Sodium 100 MG DAILY 11/03 1000 AC PO Docusate Sodium 100 MG DAILY 10/29 1000 DC 11/01 PO 0911 Heparin Sodium 5,000 UNIT Q8 11/02 1400 AC 11/02 (Porcine) SC 1425 Heparin Sodium 5,000 UNIT Q8 10/28 2200 DC 11/02 (Porcine) SC 0611 Lamotrigine 25 MG DAILY 11/03 1000 DC PO Lamotrigine 25 MG DAILY 11/02 1400 AC 11/02 PO 1425 Lamotrigine 25 MG DAILY 10/29 1000 DC 11/01 PO 0911 Ondansetron HCl 4 MG Q6P PRN 11/02 1115 AC IV Ondansetron HCl 4 MG Q6P PRN 10/28 1700 DC IV Oxycodone/ 2 TAB Q4P PRN 11/02 1115 AC Acetaminophen PO Oxycodone/ 2 TAB Q4P PRN 10/28 1700 DC Acetaminophen PO Patient Medication 1 UNIT ONE NR 11/02 1130 DC Teaching ED 11/02 1200 Patient Medication 1 UNIT ONE NR 11/02 1130 DC Teaching ED 11/02 1200 Sodium Chloride 1,000 ML Q13H 11/02 0000 DC 11/01 IV 2354 Sodium Hypochlorite 1 AIDA DAILY 11/03 1000 AC TOP Sodium Hypochlorite 1 AIDA .STK-MED ONE 11/02 0808 DC TOP 11/02 0809 Sodium Hypochlorite 1 AIDA DAILY 11/01 0715 DC 11/01 TOP 0911 Results Last 48 Hours of Labs: Laboratory Tests 11/01 1042 Coagulation PT (9.4 - 12.5 SEC) 12.2 INR (0.90 - 1.19) 1.16 Assessment/Plan Assessment/Plan A: 60-year-old woman with multiple sclerosis, nephrolitiasis admitted on 10/28/16 and underwent an I&D of muscle and soft tissues to posterior aspect of right leg for a necrotic wound which developed following anterior/lateral fasciotomies 7 weeks prior to admission d/t fall now POD #0 s/p repeat I&D. Remains on Ceftaz (day #10/18) for pseudomonas, diptheroids, and coag neg staph followed by infectious disease/plastic surgery. Plan: Continue daily to BID dressing changes (if saturated) OOB and ambulate as tolerated. Continue physical therapy. Continue Ceftaz. Due to extent of necrotic tissue, patient informed by Dr. Pelayo that she will need a proximal amputation. She, currently, is refusing this. Core Measures/Miscellaneous [place] Catheter Date In: 10/28/16 Venous Thromboembolism VTE Risk Factors: Age > 40, Surgery VTE Contraindications: No Contraindications VTE Diagnosis: No VTE Type: NONE VTE Confirmed by (Test): NONE Beta Danyell Is Beta Danyell a Home Med? No Antibiotics Is Patient on Antibiotics? Yes If Yes: infection
[2016-11-02 16:03] VITALS: BP 100/58
[2016-11-02 20:01] VITALS: BP 110/60
[2016-11-03 00:17] VITALS: BP 96/50
[2016-11-03 04:17] VITALS: BP 90/52
--- NOTE | 2016-11-03 07:25 | PN- Vascular Surgery ---
Subjective Subjective: The patient was seen this morning postoperatively. She reports that her pain is under adequate control and is no other complaints the current time. Additionally, she states that she will do anything possible to keep her leg and by no means wants an amputation. Objective Vital Signs and I&Os Vital Signs Date Time Temp Pulse Resp B/P B/P Pulse O2 O2 Flow FiO2 Mean Ox Delivery Rate 11/03 0417 97.7 86 20 90/52 95 Room Air 11/03 0017 98.6 87 20 96/50 96 Room Air 11/02 2001 98.6 98 18 110/60 96 Room Air 11/02 1603 98.3 100 18 100/58 95 Room Air 11/02 1418 97.1 110 19 100/62 97 11/02 1140 97.3 86 18 98/50 98 Room Air Intake & Output 11/03 0800 11/03 0000 11/02 1600 11/02 0811/02 0000 11/01 1600 Intake Total 730 1600 600 120 550 Output Total 400 950 250 350 300 Balance 330 650 350 -230 250 Intake, IV 130 1100 600 Intake, Oral 600 500 0 120 550 Number 0 0 1 Bowel Movements Output, Urine 400 950 250 350 300 Physical Exam: Gen.: Alert and in no obvious distress Skin: Warm and dry Extremities: Bilateral lower extremities are warm. Gross motor and sensory are intact. Right lower extremity surgical incision with mild serous drainage dressing was changed and wound appears viable at the current time. Assessment/Plan Assessment/Plan Assessment: 60-year-old female status post extensive I&D/debridement of right lower extremity wound. Plan: Continue daily or twice a day dressing changes with Dakin's and packing IV antibiotics GI and DVT prophylaxis Out of bed with physical therapy Continue current pain regiment Follow-up ID recommendations Core Measures/Miscellaneous Carlson Catheter Date In: 10/28/16 Venous Thromboembolism VTE Risk Factors: Age > 40, Surgery VTE Contraindications: No Contraindications VTE Diagnosis: No VTE Type: NONE VTE Confirmed by (Test): NONE Beta Danyell Is Beta Danyell a Home Med? No Antibiotics Is Patient on Antibiotics? Yes If Yes: infection
[2016-11-03 08:11] LABS: ABSOLUTE BASOPHIL COUNT 0.1 /CUMM (0.0-0.2); ABSOLUTE EOSINOPHIL COUNT 0.1 /CUMM (0.0-0.7); ABSOLUTE GRANULOCYTE CT 8.7 /CUMM (1.4-6.5); ABSOLUTE LYMPH COUNT 4.2 /CUMM (1.2-3.4); ABSOLUTE MONOCYTE COUNT 1.1 /CUMM (0.10-0.60); BASOPHIL % 0.7 % (0.0-2.0); GRANULOCYTE % 61.1 % (42.2-75.2); HEMATOCRIT 29.8 % (37-47); MEAN CORPUSCULAR HGB 29.4 PG (27.0-31.0); MEAN CORPUSCULAR HGB CONC 33.1 G/DL (33.0-37.0); MEAN PLATELET VOLUME 7.4 FL (7.4-10.4); PLATELET COUNT 453 /CUMM (130-400); RBC DISTRIBUTION WIDTH 16.8 % (11.5-14.5); RED BLOOD CELL CT 3.35 /CUMM (4.20-5.40); WHITE BLOOD CELL COUNT 14.3 /CUMM (4.8-10.8)
[2016-11-03 14:23] VITALS: BP 125/72
--- NOTE | 2016-11-03 16:41 | PN- Infect Dx ---
Subjective Subjective: No fever. Denies R LE discomfort. Fair appetite. No BM today per patient. Review of Systems Comments: 12 points reviewed as noted, otherwise negative. Objective Last 24 Hrs of Vital Signs/I&O Vital Signs Date Time Temp Pulse Resp B/P B/P Pulse O2 O2 Flow FiO2 Mean Ox Delivery Rate 11/03 1423 98.2 88 20 125/72 96 11/03 0417 97.7 86 20 90/52 95 Room Air 11/03 0017 98.6 87 20 96/50 96 Room Air 11/02 2000 98.6 98 18 110/60 96 Room Air Intake & Output 11/03 1600 11/03 0800 11/03 0000 Intake Total 600 130 730 Output Total 650 450 400 Balance -50 -320 330 Intake, IV 100 130 130 Intake, Oral 500 0 600 Number 0 Bowel Movements Output, Urine 650 450 400 Physical Exam Other Physical Findings: Gen.: Alert and in no acute distress, thin HEENT AT/sclera anicteric Neck No JANETH/JVD Lungs:BS present Heart S1 S2 present, no m/r/g Abd: soft, + BS, Carlson patent draining cxlear urine Extremities: Bilateral lower extremities are warm without calf tenderness or significant edema. Gross motor and sensory are intact. Skin: Right leg surgical dressing is in place, + serous drainage Results Last 24 Hours of Lab Results: Laboratory Tests 11/03 0615 Chemistry Sodium (137 - 145 mmol/L) 138 Potassium (3.5 - 5.1 mmol/L) 4.9 Chloride (98 - 107 mmol/L) 102 Carbon Dioxide (22 - 30 mmol/L) 27 Anion Gap (5 - 16) 9 BUN (7 - 17 mg/dL) 20 H Creatinine (0.5 - 1.0 mg/dL) 0.6 Estimated GFR (>60 ml/min) > 60 BUN/Creatinine Ratio (7 - 25 %) 33.3 H Phosphorus (2.5 - 4.5 mg/dL) 3.7 Magnesium (1.6 - 2.3 mg/dL) 2.1 Hematology CBC w Diff MAN DIFF ORDERED WBC (4.8 - 10.8 /CUMM) 14.3 H RBC (4.20 - 5.40 /CUMM) 3.35 L Hgb (12.0 - 16.0 G/DL) 9.9 L Hct (37 - 47 %) 29.8 L MCV (81.0 - 99.0 FL) 89.0 MCH (27.0 - 31.0 PG) 29.4 RDW (11.5 - 14.5 %) 16.8 H Plt Count (130 - 400 /CUMM) 453 H MPV (7.4 - 10.4 FL) 7.4 Gran % (42.2 - 75.2 %) 61.1 Lymphocytes % (20.5 - 51.1 %) 29.2 Monocytes % (1.7 - 9.3 %) 8.0 Eosinophils % (0 - 5 %) 1.0 Basophils % (0.0 - 2.0 %) 0.7 Absolute Granulocytes (1.4 - 6.5 /CUMM) 8.7 H Absolute Lymphocytes (1.2 - 3.4 /CUMM) 4.2 H Absolute Monocytes (0.10 - 0.60 /CUMM) 1.1 H Absolute Eosinophils (0.0 - 0.7 /CUMM) 0.1 Absolute Basophils (0.0 - 0.2 /CUMM) 0.1 Platelet Estimate (ADEQUATE) VERIFIED BY SMEAR Polychromasia 1+ Anisocytosis 1+ PUBS MCHC (33.0 - 37.0 G/DL) 33.1 Last 24 Hours of Meet Results: SPEC #: [id number] BERTRAM: 10/28/16-1499 STATUS: COMP RECD: 10/28/16-[address]: BATSHEVA PHELPS,TONY GARDINER SOURCE: EXTREMITIE ENTR: 10/28/16-[address]: ROSEMARY WILEY MD SPDESC: LEG RT LOW ORDERED: XTRMOR COMMENT: ADDITIONAL INFORMATION: DEBRIDED TISSUE POSSIBLE MUSCLE LG PIECE TISSUE IN CUP Procedure Result > GRAM STAIN Final 10/29/16-1031 WHITE BLOOD CELLS RARE GRAM POSITIVE COCCI MANY GRAM NEGATIVE RODS MANY > EXTREMITIES OR SPECIMEN Final 10/30/16-1435 AFTER 2 DAYS: 1. Moderate growth of: PSEUDOMONAS AERUGINOSA 2. Heavy growth of: STAPH COAGULASE NEGATIVE 3. Scant growth of DIPHTHEROIDS Recent Imaging Studies: CT R LE 10/30/16 IMPRESSION: Open wound at the posterior aspect of the proximal calf with significant underlying myonecrosis in the superficial and deep posterior compartment calf musculature. This appearance is most typical of an infectious myositis. Foci of gas within the musculature may be due to infection or due to the recent surgery. The pattern is not typical of necrotizing fasciitis as the abnormalities appear to be tracking within the muscle tissue as opposed to within the surrounding fascial planes and the gas is predominately restricted to the area around the surgical site. DICTATED BY: SHUKRI REARDON MD Assessment/Plan Impression: 60-year-old woman with multiple sclerosis, nephrolitiasis admitted 10/28/16. Stable status post debridement of the muscle and soft tissues of the posterior aspect of the right for a necrotic wound that developed following anterior and lateral fasciotomies performed 7 weeks prior to admission following trauma (s/p fall); polymicrobial infection (Pseudomonas aeruginosa, SCN, and scant diphtheroids) The recent CT scan suggested progression of the infection; s/p debridement 11/02; plastic surgery following Developed leukocytosis H/o urinary retention; Carlson catheter remains in place/patent Suggestion: 1. Continue Ceftazidime 2 grams IV every 8 hours started 10/30 (D#5/); start iv vancomycin 1 gm q 12 h; vanco trough before the 4th dose; goal trough 15-20. 2. Trend CBC, BMP 3. ESR/CRP in am; if ESR elevated consider MRI R LE eval OM/myositis (w/ contrast). 4. Call if fever. 5. If diarrhea please obtain C. difficile assay.
[2016-11-03 22:44] VITALS: BP 88/50
[2016-11-04 07:40] VITALS: BP 80/50
[2016-11-04 08:03] LABS: ABSOLUTE BASOPHIL COUNT 0.1 /CUMM (0.0-0.2); ABSOLUTE EOSINOPHIL COUNT 0.6 /CUMM (0.0-0.7); ABSOLUTE LYMPH COUNT 6.6 /CUMM (1.2-3.4); ABSOLUTE MONOCYTE COUNT 1.1 /CUMM (0.10-0.60); BASOPHIL % 0.6 % (0.0-2.0); EOSINOPHIL % 4.2 % (0-5); GRANULOCYTE % 37.2 % (42.2-75.2); HEMATOCRIT 28.2 % (37-47); MEAN CORPUSCULAR HGB 29.4 PG (27.0-31.0); MEAN CORPUSCULAR HGB CONC 32.7 G/DL (33.0-37.0); MEAN CORPUSCULAR VOLUME 90.1 FL (81.0-99.0); MEAN PLATELET VOLUME 7.3 FL (7.4-10.4); PLATELET COUNT 453 /CUMM (130-400); RBC DISTRIBUTION WIDTH 17.1 % (11.5-14.5); RED BLOOD CELL CT 3.13 /CUMM (4.20-5.40); WHITE BLOOD CELL COUNT 13.4 /CUMM (4.8-10.8)
--- NOTE | 2016-11-04 08:17 | PN- Vascular Surgery ---
See Addendum Subjective Subjective: OOB in chair No complaints this morning, RLE without pain Adamantly stating that she will not ever agree to an amputation Objective Vital Signs and I&Os Vital Signs Date Time Temp Pulse Resp B/P B/P Pulse O2 O2 Flow FiO2 Mean Ox Delivery Rate 11/04 0740 98.0 85 20 80/50 95 Room Air 11/03 2244 98.2 88 20 88/50 96 11/03 1423 98.2 88 20 125/72 96 Intake & Output 11/04 0811/04 0000 11/03 1600 11/03 0811/03 0000 Intake Total 250 600 130 730 Output Total 300 275 650 450 400 Balance -50 -275 -50 -320 330 Intake, IV 200 100 130 130 Intake, Oral 50 500 0 600 Number 0 Bowel Movements Output, Urine 300 275 650 450 400 Physical Exam: afebrile sbp low overnight and this morning 80-90, asymptomatic General: alert and oriented times three Chest: clear anteriorly bilaterally Ext: LLE positive sensate and 5/5 SHANT, RLE - decreased strength as pre admission, decreased sensation unchanged from pre admission *RN has recently changed the dressing at 6 am. Per RN there was a small amount of clear-yellow drainage. Nothing brown, not foul smelling. The wound was clean and pink. Dressing is currently dry Current Medications: Current Medications Sig/Ronak Start time Last Medication Dose Route Stop Time Status Admin Acetaminophen 650 MG Q6P PRN 11/02 1115 AC PO Aspirin Buffered 81 MG DAILY 11/03 1000 AC 11/03 PO 0813 Ceftazidime 2,000 MG IQ8 11/02 1600 AC 11/04 Dextrose/Water 50 ML IV 0021 Docusate Sodium 100 MG DAILY 11/03 1000 AC 11/03 PO 0813 Heparin Sodium 5,000 UNIT Q8 11/02 1400 AC 11/04 (Porcine) SC 0526 Lamotrigine 25 MG DAILY 11/02 1400 AC 11/03 PO 0813 Ondansetron HCl 4 MG Q6P PRN 11/02 1115 AC IV Oxycodone/ 2 TAB Q4P PRN 11/02 1115 AC Acetaminophen PO Sodium Hypochlorite 1 AIDA DAILY 11/03 1000 AC 11/03 TOP 1427 Vancomycin HCl 1,000 MG Q12 11/03 2200 AC 11/03 Sodium Chloride 250 ML IV 2242 Assessment/Plan Assessment/Plan 60 yo female with ms, s/p debridement x 2 of right pop area for necrotic wound Followed by ID - abx changed yesterday - now on fortaz and vanc to pseudomonas 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 Will continue to follow ID recommendations. Vanc trough added for tomorrow AM prior to 4th dose Wound care - dressing changes bid with dakins. Will follow up later today for second dressing change. Follow up with vascular surgeon to evaluate. Hypotension - asymptomatic, continue to monitor fu labs Add colace/senna/miralax for bowel regimen if needed. No bm for 3 days Pt has chronic, indwelling españa Core Measures/Miscellaneous [place] Catheter Date In: 10/28/16 Still Needed? Yes (chronic indwelling es[place]) Venous Thromboembolism VTE Risk Factors: Age > 40, Surgery VTE Contraindications: No Contraindications VTE Diagnosis: No VTE Type: NONE VTE Confirmed by (Test): NONE Beta Danyell Is Beta Danyell a Home Med? No Antibiotics Is Patient on Antibiotics? Yes If Yes: infection
[2016-11-04 14:13] VITALS: BP 110/68
--- NOTE | 2016-11-04 17:03 | PN- Infect Dx ---
Subjective Subjective: Denies RLE without pain; no fever. Review of Systems Comments: 12 points reviewed as noted; otherwise negative. Objective Last 24 Hrs of Vital Signs/I&O Vital Signs Date Time Temp Pulse Resp B/P B/P Pulse O2 O2 Flow FiO2 Mean Ox Delivery Rate 11/04 1634 Room Air 11/04 1413 98.6 99 20 110/68 97 11/04 0740 98.0 85 20 80/50 95 Room Air 11/03 2244 98.2 88 20 88/50 96 Intake & Output 11/04 1600 11/04 0800 11/04 0000 Intake Total 1150 250 Output Total 500 300 275 Balance 650 -50 -275 Intake, IV 350 200 Intake, Oral 800 50 Number 1 Bowel Movements Output, Urine 500 300 275 Physical Exam Other Physical Findings: Gen.: Alert and in no acute distress, thin HEENT AT/sclera anicteric Neck No JANETH/JVD Lungs:BS present Heart S1 S2 present, no m/r/g Abd: soft, + BS, Carlson patent draining cxlear urine Extremities: Bilateral lower extremities are warm without calf tenderness or significant edema. Gross motor and sensory are intact. Skin: Right leg surgical dressing is in place, + serous drainage Results Last 24 Hours of Lab Results: Laboratory Tests 11/04 0654 Chemistry Sodium (137 - 145 mmol/L) 138 Potassium (3.5 - 5.1 mmol/L) 4.6 Chloride (98 - 107 mmol/L) 102 Carbon Dioxide (22 - 30 mmol/L) 27 Anion Gap (5 - 16) 9 BUN (7 - 17 mg/dL) 21 H Creatinine (0.5 - 1.0 mg/dL) 0.7 Estimated GFR (>60 ml/min) > 60 BUN/Creatinine Ratio (7 - 25 %) 30.0 H C-React Prot High Sens (1.0 - 3.0 mg/L) 13.7 H Hematology CBC w Diff NO MAN DIFF REQ WBC (4.8 - 10.8 /CUMM) 13.4 H RBC (4.20 - 5.40 /CUMM) 3.13 L Hgb (12.0 - 16.0 G/DL) 9.2 L Hct (37 - 47 %) 28.2 L MCV (81.0 - 99.0 FL) 90.1 MCH (27.0 - 31.0 PG) 29.4 RDW (11.5 - 14.5 %) 17.1 H Plt Count (130 - 400 /CUMM) 453 H MPV (7.4 - 10.4 FL) 7.3 L Gran % (42.2 - 75.2 %) 37.2 L Lymphocytes % (20.5 - 51.1 %) 49.7 Monocytes % (1.7 - 9.3 %) 8.3 Eosinophils % (0 - 5 %) 4.2 Basophils % (0.0 - 2.0 %) 0.6 Absolute Granulocytes (1.4 - 6.5 /CUMM) 5.0 Absolute Lymphocytes (1.2 - 3.4 /CUMM) 6.6 H Absolute Monocytes (0.10 - 0.60 /CUMM) 1.1 H Absolute Eosinophils (0.0 - 0.7 /CUMM) 0.6 Absolute Basophils (0.0 - 0.2 /CUMM) 0.1 PUBS MCHC (33.0 - 37.0 G/DL) 32.7 L ESR Westergren (0 - 20 MM) 90 H Last 24 Hours of Meet Results: EXTREMITIES OR SPECIMEN Final 10/30/16-1435 AFTER 2 DAYS: 1. Moderate growth of: PSEUDOMONAS AERUGINOSA 2. Heavy growth of: STAPH COAGULASE NEGATIVE 3. Scant growth of DIPHTHEROIDS Preliminary Called to/Readback by LYLE by REJI 10/29/16 0904 Recent Imaging Studies: IMPRESSION: Open wound at the posterior aspect of the proximal calf with significant underlying myonecrosis in the superficial and deep posterior compartment calf musculature. This appearance is most typical of an infectious myositis. Foci of gas within the musculature may be due to infection or due to the recent surgery. The pattern is not typical of necrotizing fasciitis as the abnormalities appear to be tracking within the muscle tissue as opposed to within the surrounding fascial planes and the gas is predominately restricted to the area around the surgical site. DICTATED BY: SHUKRI REARDON MD DATE/TIME DICTATED:10/29/161358 SPRING ASSEMBLER:JEANETTE DATE/TIME TRANSCRIBED:10/29/161358 Assessment/Plan Impression: 60-year-old woman with multiple sclerosis, nephrolitiasis admitted 10/28/16. Stable status post debridement of the muscle and soft tissues of the posterior aspect of the right for a necrotic wound that developed following anterior and lateral fasciotomies performed 7 weeks prior to admission following trauma (s/p fall); polymicrobial infection (Pseudomonas aeruginosa, SCN, and scant diphtheroids) The recent CT scan suggested progression of the infection; s/p debridement 11/02; plastic surgery following Developed leukocytosis H/o urinary retention; Carlson catheter remains in place/patent Suggestion: 1. Continue Ceftazidime 2 grams IV every 8 hours started 10/30 (D#6/) and iv vancomycin 1 gm q 12 h D #2; vanco trough before the 4th dose; goal trough 15- 20. 2. Trend CBC, BMP 3. MRI R LE eval OM/myositis (w/ contrast); f/u vasc sx recom.
[2016-11-04 22:29] VITALS: BP 102/60
[2016-11-05 06:32] VITALS: BP 100/64
--- NOTE | 2016-11-05 07:47 | PN- Vascular Surgery ---
Subjective Subjective: Patient without pain, she is comfortable, no fever no flulike illness, no change or acute events Objective Vital Signs and I&Os Vital Signs Date Time Temp Pulse Resp B/P B/P Pulse O2 O2 Flow FiO2 Mean Ox Delivery Rate 11/05 0632 97.8 80 20 100/64 96 Room Air 11/04 2229 98.0 94 20 102/60 95 Room Air 11/04 1634 Room Air 11/04 1413 98.6 99 20 110/68 97 Intake & Output 11/05 0000 11/04 1600 11/04 0000 11/03 1600 Intake Total 917 967 8721 250 600 Output Total 300 750 500 300 275 650 Balance -30 -260 650 -50 -275 -50 Intake, IV 150 250 350 200 100 Intake, Oral 120 240 800 50 500 Number 1 Bowel Movements Output, Urine 300 750 500 300 275 650 Physical Exam: Well-developed well-nourished no apparent distress. HEENT: Atraumatic, extraocular motion intact Neck: Supple, no lymphadenopathy Respiratory: No respiratory distress Extremities: No edema, no calf pain Right lower leg posterior calf and knee dressing intact, clean and dry The right foot has normal sensation. She has no active EHL motion or active dorsiflexion. (Patient states no change) Neuro: Alert and oriented x3 Psych: Mood affect normal, normal memory normal judgment. Skin: Warm and dry, no rash on exposed skin Results Last 48 Hours of Labs: Laboratory Tests 11/04 0654 Chemistry Sodium (137 - 145 mmol/L) 138 Potassium (3.5 - 5.1 mmol/L) 4.6 Chloride (98 - 107 mmol/L) 102 Carbon Dioxide (22 - 30 mmol/L) 27 Anion Gap (5 - 16) 9 BUN (7 - 17 mg/dL) 21 H Creatinine (0.5 - 1.0 mg/dL) 0.7 Estimated GFR (>60 ml/min) > 60 BUN/Creatinine Ratio (7 - 25 %) 30.0 H C-React Prot High Sens (1.0 - 3.0 mg/L) 13.7 H Hematology CBC w Diff NO MAN DIFF REQ WBC (4.8 - 10.8 /CUMM) 13.4 H RBC (4.20 - 5.40 /CUMM) 3.13 L Hgb (12.0 - 16.0 G/DL) 9.2 L Hct (37 - 47 %) 28.2 L MCV (81.0 - 99.0 FL) 90.1 MCH (27.0 - 31.0 PG) 29.4 RDW (11.5 - 14.5 %) 17.1 H Plt Count (130 - 400 /CUMM) 453 H MPV (7.4 - 10.4 FL) 7.3 L Gran % (42.2 - 75.2 %) 37.2 L Lymphocytes % (20.5 - 51.1 %) 49.7 Monocytes % (1.7 - 9.3 %) 8.3 Eosinophils % (0 - 5 %) 4.2 Basophils % (0.0 - 2.0 %) 0.6 Absolute Granulocytes (1.4 - 6.5 /CUMM) 5.0 Absolute Lymphocytes (1.2 - 3.4 /CUMM) 6.6 H Absolute Monocytes (0.10 - 0.60 /CUMM) 1.1 H Absolute Eosinophils (0.0 - 0.7 /CUMM) 0.6 Absolute Basophils (0.0 - 0.2 /CUMM) 0.1 PUBS MCHC (33.0 - 37.0 G/DL) 32.7 L ESR Westergren (0 - 20 MM) 90 H Assessment/Plan Assessment/Plan 60 yo female with ms, s/p debridement x 2 of right pop area for necrotic wound, she is postop day 3 status post most recent debridement. Followed by ID,on fortaz and vanc . Will continue to follow ID recommendations, elevated ESR and CRP. Vanc trough pending today. MRI ordered of the right knee and right tib-fib region to eval for OM/myositis however, MRI not available on Tuesdays, hopefully this will be done tomorrow, Friday. Wound care - dressing changes bid with dakins. Per the nurse, was changed at 2 AM, it was clean, no odor. Vascular surgeon Dr Mcqueen to evaluate today and change dressing. fu labs, vanco trough Pt has chronic, indwelling españa-needs to continue Core Measures/Miscellaneous [place] Catheter Date In: 10/28/16 Venous Thromboembolism VTE Risk Factors: Age > 40, Surgery VTE Contraindications: No Contraindications VTE Diagnosis: No VTE Type: NONE VTE Confirmed by (Test): NONE Beta Danyell Is Beta Danyell a Home Med? No Antibiotics Is Patient on Antibiotics? Yes If Yes: infection
--- NOTE | 2016-11-05 09:13 | PN- Vascular Surgery ---
Surgical Brief Attending Note Brief Attending Note: S/P 2nd debridement right calf wound. pt well. did some walking yesterday. no specific pain issues. EXAM Right LE; [place] fasciotomy wound clean, good granulation; posterior calf wound: overall good granulation tissue, no obvious foul odor; minimal necrotic tissue. foot warm. A/P s/p debridement right calf muscle. Overall wound looks quite good, all things considered. Continue IV abx. Continue Dakin's dressing. Continue physical therapy. Discussed with patient my findings, of improvement. However, still at risk. Maybe at some point, a VAC would be helpful.
[2016-11-05 14:28] VITALS: BP 99/58
[2016-11-05 15:12] LABS: ABSOLUTE BASOPHIL COUNT 0.2 /CUMM (0.0-0.2); ABSOLUTE EOSINOPHIL COUNT 0.5 /CUMM (0.0-0.7); ABSOLUTE GRANULOCYTE CT 4.8 /CUMM (1.4-6.5); ABSOLUTE LYMPH COUNT 4.3 /CUMM (1.2-3.4); ABSOLUTE MONOCYTE COUNT 0.9 /CUMM (0.10-0.60); BASOPHIL % 1.9 % (0.0-2.0); EOSINOPHIL % 4.7 % (0-5); HEMATOCRIT 28.9 % (37-47); MEAN CORPUSCULAR HGB 29.2 PG (27.0-31.0); MEAN CORPUSCULAR HGB CONC 32.5 G/DL (33.0-37.0); MEAN CORPUSCULAR VOLUME 89.8 FL (81.0-99.0); MEAN PLATELET VOLUME 7.3 FL (7.4-10.4); PLATELET COUNT 437 /CUMM (130-400); RBC DISTRIBUTION WIDTH 16.9 % (11.5-14.5); RED BLOOD CELL CT 3.21 /CUMM (4.20-5.40); WHITE BLOOD CELL COUNT 10.7 /CUMM (4.8-10.8)
[2016-11-05 15:52] LABS: GRANULOCYTE % 44.7 % (42.2-75.2)
--- NOTE | 2016-11-05 18:07 | PN- Infect Dx ---
Subjective Subjective: Afebrile. She offers no complaints and apparently has been ambulating. Objective Last 24 Hrs of Vital Signs/I&O Vital Signs Date Time Temp Pulse Resp B/P B/P Pulse O2 O2 Flow FiO2 Mean Ox Delivery Rate 11/05 1428 97.9 95 20 99/58 96 11/05 0632 97.8 80 20 100/64 96 Room Air 11/04 2229 98.0 94 20 102/60 95 Room Air Intake & Output 11/05 1600 11/05 0800 11/05 0000 Intake Total 880 270 490 Output Total 350 300 750 Balance 530 -30 -260 Intake, IV 400 150 250 Intake, Oral 480 120 240 Number 0 Bowel Movements Output, Urine 350 300 750 Physical Exam Other Physical Findings: She appears comfortable in no acute distress Extremities right leg wound clean, with no necrosis or purulence Results Last 24 Hours of Lab Results: Laboratory Tests 11/05 1344 Chemistry Sodium (137 - 145 mmol/L) 136 L Potassium (3.5 - 5.1 mmol/L) 4.5 Chloride (98 - 107 mmol/L) 98 Carbon Dioxide (22 - 30 mmol/L) 27 Anion Gap (5 - 16) 11 BUN (7 - 17 mg/dL) 19 H Creatinine (0.5 - 1.0 mg/dL) 0.6 Estimated GFR (>60 ml/min) > 60 BUN/Creatinine Ratio (7 - 25 %) 31.7 H Hematology CBC w Diff NO MAN DIFF REQ WBC (4.8 - 10.8 /CUMM) 10.7 RBC (4.20 - 5.40 /CUMM) 3.21 L Hgb (12.0 - 16.0 G/DL) 9.4 L Hct (37 - 47 %) 28.9 L MCV (81.0 - 99.0 FL) 89.8 MCH (27.0 - 31.0 PG) 29.2 RDW (11.5 - 14.5 %) 16.9 H Plt Count (130 - 400 /CUMM) 437 H MPV (7.4 - 10.4 FL) 7.3 L Gran % (42.2 - 75.2 %) 44.7 Lymphocytes % (20.5 - 51.1 %) 40.4 Monocytes % (1.7 - 9.3 %) 8.3 Eosinophils % (0 - 5 %) 4.7 Basophils % (0.0 - 2.0 %) 1.9 Absolute Granulocytes (1.4 - 6.5 /CUMM) 4.8 Absolute Lymphocytes (1.2 - 3.4 /CUMM) 4.3 H Absolute Monocytes (0.10 - 0.60 /CUMM) 0.9 H Absolute Eosinophils (0.0 - 0.7 /CUMM) 0.5 Absolute Basophils (0.0 - 0.2 /CUMM) 0.2 PUBS MCHC (33.0 - 37.0 G/DL) 32.5 L Toxicology Vancomycin Trough (10.0 - 20.0 ug/mL) 39.1 H Last 24 Hours of Meet Results: No recent cultures Assessment/Plan Impression: Stable status post repeat debridement of necrotic muscle and soft tissues of the posterior aspect of the right leg 3 days ago for persistent purulence of the necrotic wound that developed following anterior and lateral fasciotomies 7 weeks prior to admission following trauma. She remains afebrile with her white blood cell count decreased on Ceftazidime for the Pseudomonas isolated from the OR culture and Vancomycin, which was added 2 days ago for coag-negative Staph isolated from the OR culture, though its significance, as well as that of the diphtheroids, is unclear. Her Vancomycin "trough" level of 39 is of unclear significance, as it appears that she received her Vancomycin dose 3 hours earlier and question if this represents a peak. Her Carlson catheter remains in place, but, as previously recommended, feel that alternatives, such as straight cath or suprapubic catheter, should be considered. Suggestion: 1. Further management of her right leg wound per Surgery 2. Would again reevaluate alternatives to the Carlson catheter 3. Obtain a random Vancomycin level in the a.m. 4. Continue Ceftazidime
[2016-11-05 22:08] VITALS: BP 90/60
[2016-11-06 06:34] VITALS: BP 92/50
--- NOTE | 2016-11-06 07:43 | PN- Vascular Surgery ---
Subjective Subjective: FEELS BETTER, NO PAIN IN RIGHT LEG, STILL SOME NUMBNESS AND LOSS OF MOTOR FUNCTION, THOUGH THINKS SENSATION IS IMPROVING. NO CP,SOB,N,V,F,C Objective Vital Signs and I&Os Vital Signs Date Time Temp Pulse Resp B/P B/P Pulse O2 O2 Flow FiO2 Mean Ox Delivery Rate 11/06 0634 97.9 82 20 92/50 95 Room Air 11/05 2208 98.3 93 20 90/60 97 Room Air 11/05 1428 97.9 95 20 99/58 96 Intake & Output 11/06 0800 11/06 0000 11/05 1600 11/05 0800 11/05 0000 11/04 1600 Intake Total 150 1080 880 919 559 5848 Output Total 550 450 350 300 750 500 Balance -400 630 530 -30 -260 650 Intake, IV 150 120 400 150 250 350 Intake, Oral 960 480 120 240 800 Number 1 0 1 Bowel Movements Output, Urine 550 450 350 300 750 500 Physical Exam: GEN: NAD CARD: S1S2 RRR PULM: CTAB ABD: SOFT NT EXT: RLE: DRESSING CHANGED, LATERAL WOUND HEALING WELL, CLEAN, PINK, NO DRAINAGE , NO FOUL SMELL, REDRESSED WITH XEROFORM. POSTERIOR WOUND W SOME FIBRIN, PINK GRANUL[place] TISSUE, NO NECROSIS, NO FOUL SMELL, NO PURULENCE, EDGES CLEAN, REPACKED WITH DAKINS. PALP PT PULSE, FOOT WARM. NO ACTIVE TOE MOVEMENT, NO ACTIVE PLANTAR/DORSIFLEXION Assessment/Plan Assessment/Plan A/P SP FASCIOTOMY, FALL, ABSCESS, SP DEBRIDEMENT- IMPROVING. SOFT BP, ASYMPTOMATIC WITH GOOD UO. CONT ANX PER ID, VANC TROUGH THIS AM CONT DIET, CURRENT PO MEDS DAKINS DSG CHANGE BID, DUE THIS PM WITH RN WATCH BP WILL DW ATTENDING Core Measures/Miscellaneous Carlson Catheter Date In: 10/28/16 Venous Thromboembolism VTE Risk Factors: Age > 40, Surgery VTE Contraindications: No Contraindications VTE Diagnosis: No VTE Type: NONE VTE Confirmed by (Test): NONE Beta Danyell Is Beta Danyell a Home Med? No Antibiotics Is Patient on Antibiotics? Yes If Yes: infection
--- NOTE | 2016-11-06 11:10 | PN- Vascular Surgery ---
Surgical Brief Attending Note Brief Attending Note: patient feeling better each day. describes better sensation. getting physical therapy and taking some steps with assistance. EXAM RIGHT: post calf wound; overall good granulation tissue; distal portion with mild necrotic tissue. A/P continue Dakin's dressing for now IV abx. Will re-assess in next few days. Some additional debridement of distal portion may still be required.
[2016-11-06 14:28] VITALS: BP 100/50
--- NOTE | 2016-11-06 16:34 | PN- Infect Dx ---
Subjective Subjective: Afebrile without complaints Objective Last 24 Hrs of Vital Signs/I&O Vital Signs Date Time Temp Pulse Resp B/P B/P Pulse O2 O2 Flow FiO2 Mean Ox Delivery Rate 11/06 1602 Room Air 11/06 1428 98.2 77 20 100/50 93 11/06 0634 97.9 82 20 92/50 95 Room Air 11/05 2208 98.3 93 20 90/60 97 Room Air Intake & Output 11/06 1600 11/06 0800 11/06 0000 Intake Total 751 531 3231 Output Total 650 550 450 Balance -50 -400 630 Intake, IV 120 150 120 Intake, Oral 480 960 Number 1 Bowel Movements Output, Urine 650 550 450 Physical Exam Other Physical Findings: She appears comfortable in no acute distress Extremities right leg dressing intact Results Last 24 Hours of Lab Results: Laboratory Tests 11/06 0654 Toxicology Vancomycin Trough (10.0 - 20.0 ug/mL) 10.4 Last 24 Hours of Meet Results: No recent cultures Assessment/Plan Impression: Stable status post repeat debridement of necrotic muscle and soft tissues of the posterior aspect of the right leg 4 days ago for persistent purulence of the necrotic wound that developed following anterior and lateral fasciotomies 7 weeks prior to admission following trauma. She remains afebrile with white blood cell count decreased on Ceftazidime for the Pseudomonas isolated from the OR culture and Vancomycin, added 3 days ago for the coag-negative Staph isolated from the OR culture, though its significance, as well as that of the diphtheroids, which was also isolated, is unclear. Her Vancomycin "trough" level of 39 yesterday may have represented a peak level, as it appears that she received the Vancomycin dose 3 hours earlier, but Vancomycin was held pending today's level. Her Carlson catheter remains in place, but, as previously recommended, feel that alternatives, such as straight cath or suprapubic catheter, should be considered. Suggestion: 1. Further management of her right leg wound per Surgery 2. Would again reevaluate alternatives to the Carlson catheter 3. Restart Vancomycin 1 g IV every 24 hours 4. Continue Ceftazidime
[2016-11-06 22:42] VITALS: BP 102/60
[2016-11-07 06:49] VITALS: BP 96/54
--- NOTE | 2016-11-07 11:24 | PN- Vascular Surgery ---
Subjective Subjective: No acute overnight events reported. Pain under control. Patient has been ambulatory. No chest pain, shortness of breath and difficulty breathing. No nausea and vomitting. Objective Vital Signs and I&Os Vital Signs Date Time Temp Pulse Resp B/P B/P Pulse O2 O2 Flow FiO2 Mean Ox Delivery Rate 11/07 0649 97.8 78 20 96/54 97 Room Air 11/06 2242 98.1 93 20 102/60 96 Room Air 11/06 1602 Room Air 11/06 1428 98.2 77 20 100/50 93 Intake & Output 11/07 1600 11/07 0800 11/07 0000 11/06 1600 11/06 0800 11/06 0000 Intake Total 510 684 493 7524 Output Total 350 450 650 550 450 Balance -350 60 -50 -400 630 Intake, IV 150 120 150 120 Intake, Oral 360 480 960 Number 1 1 Bowel Movements Output, Urine 350 450 650 550 450 Physical Exam: General: Alert and oriented x3, no acute distress Cardiac: RRR, s1s2 Pulm: Normal respiratory effort, lung sounds clear Abdomen: Non-tender no-distension, Carlson in place with clear yellow urine Extremities: Right calf wound with granulation tissue, Wound vac placed today, holding suction Distally patient reporting motor activity in left toes Assessment/Plan Assessment/Plan SP FASCIOTOMY, FALL, ABSCESS, SP DEBRIDEMENT- IMPROVING. SOFT BP, ASYMPTOMATIC WITH GOOD UO. CONT ABX PER ID, VANC TROUGH THIS AM CONT DIET, CURRENT PO MEDS WOUND VAC PLACED TODAY, WILL BE CHANGED TOMORROW, THEN 2-3 X PER WEEK DO NOT D/C WOUND VAC SUCTION WHEN AMBULATING WATCH BP WILL DW ATTENDING Core Measures/Miscellaneous Carlson Catheter Date In: 10/28/16 Venous Thromboembolism VTE Risk Factors: Age > 40, Surgery VTE Contraindications: No Contraindications VTE Diagnosis: No VTE Type: NONE VTE Confirmed by (Test): NONE Beta Danyell Is Beta Danyell a Home Med? No Antibiotics Is Patient on Antibiotics? Yes If Yes: infection
[2016-11-07 14:08] VITALS: BP 100/60
[2016-11-07 21:36] VITALS: BP 100/66
[2016-11-08 06:36] VITALS: BP 100/60
--- NOTE | 2016-11-08 09:08 | PN- Vascular Surgery ---
Subjective Subjective: No acute overnight events reported. Patient states that pain is overall controlled, is tolerating wound vac with no complaints. Has been OOB ambulating in hallway, is eager to ambulate again this afternoon. Denies chest pain, shortness of breath and difficulty breathing. Denies nausea and vomitting. Objective Vital Signs and I&Os Vital Signs Date Time Temp Pulse Resp B/P B/P Pulse O2 O2 Flow FiO2 Mean Ox Delivery Rate 11/09 635 97.9 69 19 100/60 96 Room Air 11/07 2136 98.3 76 18 100/66 96 Room Air 11/07 1408 98.1 94 20 100/60 97 Room Air 11/07 1341 Room Air Intake & Output 11/08 1600 11/08 0800 11/08 0000 11/07 1600 11/07 0800 11/07 0000 Intake Total 150 980 580 510 Output Total 400 400 420 350 450 Balance -250 580 160 -350 60 Intake, IV 150 380 100 150 Intake, Oral 600 480 360 Number 1 Bowel Movements Output, 25 20 Drainage Output, Urine 400 375 400 350 450 Physical Exam: General: Alert and oriented x3, no acute distress Cardiac: RRR, s1s2 Pulmonary: Bilateral lung sounds clear to auscultation Abdomen: Non-tender, non-distended, [place] catheter in place with clear pale yellow urine Extremities: Moving all exteremities, motion to bilateral feet improving. Skin warm. Calves soft bilaterally. Surgical site: Right posterior calf. Wound vac in place, holding suction, serosanguinous drainage in cannister. Dressing on fasciotomy site dry and intact. Assessment/Plan Assessment/Plan SP FASCIOTOMY, FALL, ABSCESS, SP DEBRIDEMENT- IMPROVING. SOFT BP, ASYMPTOMATIC WITH GOOD UO. CONT ABX PER ID, VANC TROUGH THIS AM CONT DIET, CURRENT PO MEDS WOUND VAC PLACED YESTERDAY, WILL BE CHANGED TODAY, THEN 2-3 X PER WEEK DO NOT D/C WOUND VAC SUCTION WHEN AMBULATING WATCH BP WILL DW ATTENDING CONSIDER DISPO PLANNING, ?STR Core Measures/Miscellaneous [place] Catheter Date In: 10/28/16 Venous Thromboembolism VTE Risk Factors: Age > 40, Surgery VTE Contraindications: No Contraindications VTE Diagnosis: No VTE Type: NONE VTE Confirmed by (Test): NONE Beta Danyell Is Beta Danyell a Home Med? No Antibiotics Is Patient on Antibiotics? Yes If Yes: infection
--- NOTE | 2016-11-08 09:32 | PN- Vascular Surgery ---
Surgical Brief Attending Note Brief Attending Note: Seen. Ambulating. No specific complaints. Had wound VAC placed to right posterior calf wound. Assessment and plan: Continue antibiotics. Continue wound VAC. If wound looks good next week, can consider discharge to facility.
[2016-11-08 12:08] LABS: ABSOLUTE BASOPHIL COUNT 0.1 /CUMM (0.0-0.2); ABSOLUTE EOSINOPHIL COUNT 0.5 /CUMM (0.0-0.7); ABSOLUTE GRANULOCYTE CT 4.4 /CUMM (1.4-6.5); ABSOLUTE LYMPH COUNT 3.3 /CUMM (1.2-3.4); ABSOLUTE MONOCYTE COUNT 0.8 /CUMM (0.10-0.60); BASOPHIL % 0.6 % (0.0-2.0); EOSINOPHIL % 5.1 % (0-5); GRANULOCYTE % 49.5 % (42.2-75.2); MEAN CORPUSCULAR HGB 29.1 PG (27.0-31.0); MEAN CORPUSCULAR HGB CONC 32.5 G/DL (33.0-37.0); MEAN CORPUSCULAR VOLUME 89.4 FL (81.0-99.0); MEAN PLATELET VOLUME 7.5 FL (7.4-10.4); PLATELET COUNT 399 /CUMM (130-400); RBC DISTRIBUTION WIDTH 17.4 % (11.5-14.5); RED BLOOD CELL CT 3.58 /CUMM (4.20-5.40)
--- NOTE | 2016-11-08 12:50 | PN- Infect Dx ---
Subjective Subjective: Afebrile. She notes mild discomfort around her right ankle Objective Last 24 Hrs of Vital Signs/I&O Vital Signs Date Time Temp Pulse Resp B/P B/P Pulse O2 O2 Flow FiO2 Mean Ox Delivery Rate 11/08 0636 97.9 69 19 100/60 96 Room Air 11/07 2136 98.3 76 18 100/66 96 Room Air 11/07 1408 98.1 94 20 100/60 97 Room Air 11/07 1341 Room Air Intake & Output 11/08 1600 11/08 0800 11/08 0000 Intake Total 150 980 Output Total 400 400 Balance -250 580 Intake, IV 150 380 Intake, Oral 600 Output, 25 Drainage Output, Urine 400 375 Physical Exam Other Physical Findings: She appears comfortable in no acute distress Extremities right popliteal wound with wound VAC in place Results Last 24 Hours of Lab Results: Laboratory Tests 11/08 1044 Chemistry Sodium (137 - 145 mmol/L) 138 Potassium (3.5 - 5.1 mmol/L) 4.9 Chloride (98 - 107 mmol/L) 100 Carbon Dioxide (22 - 30 mmol/L) 25 Anion Gap (5 - 16) 13 BUN (7 - 17 mg/dL) 16 Creatinine (0.5 - 1.0 mg/dL) 0.6 Estimated GFR (>60 ml/min) > 60 BUN/Creatinine Ratio (7 - 25 %) 26.7 H Hematology CBC w Diff NO MAN DIFF REQ WBC (4.8 - 10.8 /CUMM) 9.0 RBC (4.20 - 5.40 /CUMM) 3.58 L Hgb (12.0 - 16.0 G/DL) 10.4 L Hct (37 - 47 %) 32.0 L MCV (81.0 - 99.0 FL) 89.4 MCH (27.0 - 31.0 PG) 29.1 RDW (11.5 - 14.5 %) 17.4 H Plt Count (130 - 400 /CUMM) 399 MPV (7.4 - 10.4 FL) 7.5 Gran % (42.2 - 75.2 %) 49.5 Lymphocytes % (20.5 - 51.1 %) 36.3 Monocytes % (1.7 - 9.3 %) 8.5 Eosinophils % (0 - 5 %) 5.1 H Basophils % (0.0 - 2.0 %) 0.6 Absolute Granulocytes (1.4 - 6.5 /CUMM) 4.4 Absolute Lymphocytes (1.2 - 3.4 /CUMM) 3.3 Absolute Monocytes (0.10 - 0.60 /CUMM) 0.8 H Absolute Eosinophils (0.0 - 0.7 /CUMM) 0.5 Absolute Basophils (0.0 - 0.2 /CUMM) 0.1 PUBS MCHC (33.0 - 37.0 G/DL) 32.5 L Last 24 Hours of Meet Results: No recent cultures Assessment/Plan Impression: Stable status post repeat debridement of necrotic muscle and soft tissues of the posterior aspect of the right leg 5 days ago for persistent purulence of the necrotic wound that developed following anterior and lateral fasciotomies 7 weeks prior to admission following trauma. She remains afebrile with white blood cell count continuing to decrease on Vancomycin and Ceftazidime for coag- negative Staph and Pseudomonas isolated from the OR culture, though the significance of the coag-negative Staph (as well as that of the diphtheroids, which was also isolated) is unclear. Her Carlson catheter remains in place, but, as previously recommended, feel that alternatives, such as straight cath or suprapubic catheter, should be considered. Suggestion: 1. Further management of her right leg wound per Surgery 2. Would remove Carlson catheter and initiate straight cath protocol 3. Vancomycin trough level on November 10 4. Continue Vancomycin and Ceftazidime
[2016-11-08 13:44] VITALS: BP 110/77
[2016-11-08 21:52] VITALS: BP 114/60
[2016-11-09 06:52] VITALS: BP 98/56
[2016-11-09 08:59] VITALS: BP 108/56
--- NOTE | 2016-11-09 10:22 | PN- Vascular Surgery ---
Surgical Brief Attending Note Brief Attending Note: Patient seen. Ambulating in the hallway with physical therapy. Able to dorsiflex right foot. Exam: Right leg with wound VAC. Assessment and plan. Labs looks stable. Continue IV antibiotics for now. Continue wound VAC. If wound looks good in the next 2 or 3 days, can consider transfer to rehabilitation.
[2016-11-09 15:19] VITALS: BP 118/68
[2016-11-09 22:30] VITALS: BP 110/63
[2016-11-10 06:30] VITALS: BP 102/60
--- NOTE | 2016-11-10 10:53 | PN- Vascular Surgery ---
Subjective Subjective: Patient feeling embarassed that her leg gave out while ambulating yesterday, no other complaints. Denies chest pain, shortness of breath and difficulty breathing. Denies nausea and vomitting. Objective Vital Signs and I&Os Vital Signs Date Time Temp Pulse Resp B/P B/P Pulse O2 O2 Flow FiO2 Mean Ox Delivery Rate 11/10 629 98.3 91 18 102/60 96 Room Air 11/09 2230 98.6 100 20 110/63 95 Room Air 11/09 1519 97.8 97 20 118/68 97 Intake & Output 11/10 1600 11/10 0800 11/10 0000 11/09 1600 11/09 0800 11/09 0000 Intake Total 190 1870 460 280 600 Output Total 465 670 150 350 325 Balance -275 1200 310 -70 275 Intake, IV 70 370 10 100 Intake, Oral 120 1500 450 180 600 Number 0 Bowel Movements Output, 15 20 Drainage Output, Urine 450 650 150 350 325 Physical Exam: General: AAO x3, no acute distress Cardiac: RRR, s1s2 Pulm: C T A bilaterally Abd: Non-tender, non-distended Extremities: Moves all extremities, able to plantar and dorsi flex right foot. Dressing intact, woundvac holding suction. serosanguinous drainage in cannister. Calves soft. Assessment/Plan Assessment/Plan This is a 60 year old female s/p fasciotomy and wound debridment of right posterior calf wound -Continue wound vac, change tomorrow -Continue hospital stay until wound reassessed in 1-2 days -Ambulate only with assistance -Can wbat on right leg -Continue diet as tolerated -Will d/w Dr. Mcqueen Core Measures/Miscellaneous Carlson Catheter Date In: 10/28/16 Venous Thromboembolism VTE Risk Factors: Age > 40, Surgery VTE Contraindications: No Contraindications VTE Diagnosis: No VTE Type: NONE VTE Confirmed by (Test): NONE Beta Danyell Is Beta Danyell a Home Med? No Antibiotics Is Patient on Antibiotics? Yes If Yes: infection
[2016-11-10 14:57] VITALS: BP 118/66
[2016-11-11 06:57] VITALS: BP 104/60
--- NOTE | 2016-11-11 11:09 | PN- Vascular Surgery ---
See Addendum Subjective Subjective: Pt did well over the weekend. She was walking frequently, but is now having difficulty walking. She admits to some parasthesias in addition to the chronic drop foot. Otherwise denies pain. Vac was just changed by Denisha. Objective Vital Signs and I&Os Vital Signs Date Time Temp Pulse Resp B/P B/P Pulse O2 O2 Flow FiO2 Mean Ox Delivery Rate 11/11 656 97.8 74 16 104/60 97 Room Air 11/10 1457 98.0 88 20 118/66 97 Intake & Output 11/11 1600 11/11 0800 11/11 0000 11/10 1600 11/10 0811/10 0000 Intake Total 901 608 9122 190 1870 Output Total 550 350 465 670 Balance -823 93 9639 -275 1200 Intake, IV 130 275 70 370 Intake, Oral 680 808 5329 120 1500 Number 1 Bowel Movements Output, 15 20 Drainage Output, Urine 550 350 450 650 Physical Exam: Gen: pt is awake and alert. sitting in the chair. NAD. Ext: the posterior wound vac dressing was removed by Denisha. Most of the wound is granulating well. There is an area of central, deep fibrinous exudate noted, but no obvious ischemia or necrosis. Mild erythema is noted at the superior aspect of the wound, but it does not appear infectious in nature. No purulence noted. the anterior wound continues to heal well. Assessment/Plan Assessment/Plan Pt is a 60 year old female s/p fasciotomy and wound debridment of right posterior calf wound -Continue wound vac, changed today. -No indication for further debridement today. -Ambulate only with assistance. Continue PT for strengthening. Can wbat on right leg. -DC espa[place] for trial of void again today. If unable, try straight cath 1-2 x. If persistent, then replace españa and call urology. -IV antibiotics per Dr. Acosta. Vanco trough was due yesterday, but not done. Will order with today's 5pm dose. -This was d/w Dr. Mcqueen, who will be in most likely tomorrow to look at the wound. Will hold discharge to rehab another 1-2 days. Core Measures/Miscellaneous [place] Catheter Date In: 10/28/16 Venous Thromboembolism VTE Risk Factors: Age > 40, Surgery VTE Contraindications: No Contraindications VTE Diagnosis: No VTE Type: NONE VTE Confirmed by (Test): NONE Beta Danyell Is Beta Danyell a Home Med? No Antibiotics Is Patient on Antibiotics? Yes If Yes: infection
--- NOTE | 2016-11-11 13:29 | PN- Infect Dx ---
Subjective Subjective: Afebrile. She notes some discomfort in her right foot Objective Last 24 Hrs of Vital Signs/I&O Vital Signs Date Time Temp Pulse Resp B/P B/P Pulse O2 O2 Flow FiO2 Mean Ox Delivery Rate 11/11 0657 97.8 74 16 104/60 97 Room Air 11/10 1457 98.0 88 20 118/66 97 Intake & Output 11/11 1600 11/11 0800 05 0000 Intake Total 230 375 Output Total 500 550 350 Balance -500 -320 25 Intake, IV 130 275 Intake, Oral 100 100 Output, Urine 500 550 350 Physical Exam Other Physical Findings: She appears comfortable in no acute distress Extremities right popliteal wound, with fibrinous exudate; some necrosis noted at the edges of the wound, with minimal surrounding erythema and no purulent drainage Results Last 24 Hours of Lab Results: No recent labs Last 24 Hours of Meet Results: Urine culture November 09 negative Assessment/Plan Impression: Stable status post repeat debridement of necrotic muscle and soft tissues of the posterior aspect of the right leg 8 days ago for persistent purulence of the necrotic wound that developed following anterior and lateral fasciotomies 7 weeks prior to admission following trauma. She remains afebrile with her most recent white blood cell count normal on Vancomycin and Ceftazidime for coag- negative Staph and Pseudomonas isolated from the OR culture. Her Carlson catheter remains in place, but a voiding trial would be appropriate, with intermittent straight catheterization initiated if she continues to have urinary retention. Suggestion: 1. Further management of her right leg wound per Surgery 2. Would remove Carlson catheter and initiate straight cath protocol 3. Obtain a Vancomycin trough level with her next dose 4. Continue Vancomycin and Ceftazidime to complete a 10 day course
[2016-11-11 14:12] VITALS: BP 104/62
[2016-11-11 17:35] LABS: ABSOLUTE BASOPHIL COUNT 0.1 /CUMM (0.0-0.2); ABSOLUTE EOSINOPHIL COUNT 0.4 /CUMM (0.0-0.7); ABSOLUTE GRANULOCYTE CT 4.2 /CUMM (1.4-6.5); ABSOLUTE LYMPH COUNT 3.6 /CUMM (1.2-3.4); ABSOLUTE MONOCYTE COUNT 0.9 /CUMM (0.10-0.60); BASOPHIL % 1.4 % (0.0-2.0); EOSINOPHIL % 4.8 % (0-5); HEMATOCRIT 33.2 % (37-47); MEAN CORPUSCULAR HGB 29.4 PG (27.0-31.0); MEAN CORPUSCULAR HGB CONC 32.9 G/DL (33.0-37.0); MEAN CORPUSCULAR VOLUME 89.3 FL (81.0-99.0); MEAN PLATELET VOLUME 7.4 FL (7.4-10.4); PLATELET COUNT 383 /CUMM (130-400); RBC DISTRIBUTION WIDTH 17.9 % (11.5-14.5); RED BLOOD CELL CT 3.71 /CUMM (4.20-5.40); WHITE BLOOD CELL COUNT 9.3 /CUMM (4.8-10.8)
[2016-11-11 17:36] LABS: GRANULOCYTE % 45.8 % (42.2-75.2)
[2016-11-11 22:51] VITALS: BP 104/60
[2016-11-12 07:30] VITALS: BP 90/46
--- NOTE | 2016-11-12 12:23 | PN- Vascular Surgery ---
Subjective Subjective: The patient was seen this morning. She had no complaints overnight. She reports being relatively comfortable and in no pain. There were no issues overnight per nursing staff. Objective Vital Signs and I&Os Vital Signs Date Time Temp Pulse Resp B/P B/P Pulse O2 O2 Flow FiO2 Mean Ox Delivery Rate 11/12 0730 98.1 85 20 90/46 96 Room Air 11/11 2251 98.7 97 20 104/60 95 Room Air 11/11 1519 Room Air 11/11 1412 98.5 92 20 104/62 96 Room Air Intake & Output 11/12 1600 11/12 0811/12 0000 11/11 1600 11/11 0000 Intake Total 100 850 230 375 Output Total 600 500 500 550 350 Balance -600 -400 350 -320 25 Intake, IV 50 130 275 Intake, Oral 100 800 100 100 Output, Urine 600 500 500 550 350 Physical Exam: General: Alert and in no obvious distress Skin: Warm and dry Extremities: Bilateral lower extremities are warm without calf tenderness or significant edema. Right lower extremity wound with VAC in place holding adequate suction and mild drainage in the collection chamber. Assessment/Plan Assessment/Plan Assessment: 60-year-old female status post I&D/debridements of right lower extremity popliteal wound. Postoperatively the patient is progressing as expected, white count has normalized and she remains afebrile. Case was discussed with Dr. Mcqueen Plan: The surgical attending will be by earlier tonight or tomorrow to further assess the patient. Continue VAC dressing and IV antibiotics per ID recommendations Out of bed with physical therapy GI and DVT prophylaxis Incentive spirometry Core Measures/Miscellaneous Carlson Catheter Date In: 10/28/16 Venous Thromboembolism VTE Risk Factors: Age > 40, Surgery VTE Contraindications: No Contraindications VTE Diagnosis: No VTE Type: NONE VTE Confirmed by (Test): NONE Beta Danyell Is Beta Danyell a Home Med? No Antibiotics Is Patient on Antibiotics? Yes If Yes: infection
[2016-11-12 17:02] VITALS: BP 102/60
[2016-11-13 01:52] VITALS: BP 100/64
[2016-11-13 06:57] VITALS: BP 102/66
--- NOTE | 2016-11-13 08:13 | PN- Vascular Surgery ---
Subjective Subjective: No acute overnighte events reported. Patient tolerating pain. Denies chest pain, shortnes of breath and difficutly breathing. Denies nausea and vomitting. Has been ambulatory but is frustrated when only ambulating short distances. Has españa catheter, anticipates seeing Dr. Luu today. Objective Vital Signs and I&Os Vital Signs Date Time Temp Pulse Resp B/P B/P Pulse O2 O2 Flow FiO2 Mean Ox Delivery Rate 11/13 0657 98.0 80 16 102/66 97 Room Air 11/13 0152 97.7 96 16 100/64 97 Room Air 11/12 1702 97.8 98 20 102/60 96 Room Air 11/12 1424 Room Air Intake & Output 11/13 1600 11/13 0800 11/13 0000 11/12 1600 11/12 0800 11/12 0000 Intake Total 50 700 100 Output Total 520 300 450 600 500 Balance -470 -300 250 -600 -400 Intake, IV 50 100 Intake, Oral 600 100 Output, 20 Drainage Output, Urine 500 300 450 600 500 Physical Exam: General: Alert and oriented, no distress, but verbalizing frustration Cardiac: RRR, no peripheral edema Pulm: Normal respiratory effort, cta Abdomen: Non-tender, non-distended Extremities: Multipodus boot on rle for foot drop, distal sensation intact, skin warm and well perfused distal to wound. Wound vac in place, serosanguinous drainage in cannister, holding suction, surrounding kerlix clean dry and intact, contralateral calf soft and non-tender Assessment/Plan Assessment/Plan This is a 60 year old female with an extensive hospital stay for wound infection following fasciotomy for rhabdo following a trauma several weeks ago. -Wound vac change today -Continue ABX per ID recommendations, appreciate input regarding discharge meds -Dr. Luu to see, appreciate input regarding indwelling españa catheter -Dr. Mcqueen to see wound today. If wound healing progressing, will likely dc to str today -Continue current pain regimen -Continue OOB, ambulate with assist -Continue diet as tolerated -Continue sqh as dvt ppx -Will d.w Dr. Mcqueen, Dr. Luu, and Dr. Acosta Core Measures/Miscellaneous [place] Catheter Date In: 10/28/16 Venous Thromboembolism VTE Risk Factors: Age > 40, Surgery VTE Contraindications: No Contraindications VTE Diagnosis: No VTE Type: NONE VTE Confirmed by (Test): NONE Beta Danyell Is Beta Danyell a Home Med? No Antibiotics Is Patient on Antibiotics? Yes If Yes: infection
--- NOTE | 2016-11-13 12:30 | PN- Infect Dx ---
Subjective Subjective: Afebrile. She continues to report discomfort in the right ankle. Objective Last 24 Hrs of Vital Signs/I&O Vital Signs Date Time Temp Pulse Resp B/P B/P Pulse O2 O2 Flow FiO2 Mean Ox Delivery Rate 11/13 0657 98.0 80 16 102/66 97 Room Air 11/13 0152 97.7 96 16 100/64 97 Room Air 11/12 1702 97.8 98 20 102/60 96 Room Air 11/12 1424 Room Air Intake & Output 11/13 1600 11/13 0800 11/13 0000 Intake Total 50 Output Total 2 520 300 Balance -2 -470 -300 Intake, IV 50 Output, 20 Drainage Output, Stool 2 Output, Urine 500 300 Physical Exam Other Physical Findings: She appears comfortable in no acute distress Extremities right leg wound VAC in place Results Last 24 Hours of Lab Results: Laboratory Tests 11/11 170 Hematology CBC w Diff NO MAN DIFF REQ WBC (4.8 - 10.8 /CUMM) 9.3 RBC (4.20 - 5.40 /CUMM) 3.71 L Hgb (12.0 - 16.0 G/DL) 10.9 L Hct (37 - 47 %) 33.2 L MCV (81.0 - 99.0 FL) 89.3 MCH (27.0 - 31.0 PG) 29.4 RDW (11.5 - 14.5 %) 17.9 H Plt Count (130 - 400 /CUMM) 383 MPV (7.4 - 10.4 FL) 7.4 Gran % (42.2 - 75.2 %) 45.8 Lymphocytes % (20.5 - 51.1 %) 38.8 Monocytes % (1.7 - 9.3 %) 9.2 Eosinophils % (0 - 5 %) 4.8 Basophils % (0.0 - 2.0 %) 1.4 Absolute Granulocytes (1.4 - 6.5 /CUMM) 4.2 Absolute Lymphocytes (1.2 - 3.4 /CUMM) 3.6 H Absolute Monocytes (0.10 - 0.60 /CUMM) 0.9 H Absolute Eosinophils (0.0 - 0.7 /CUMM) 0.4 Absolute Basophils (0.0 - 0.2 /CUMM) 0.1 PUBS MCHC (33.0 - 37.0 G/DL) 32.9 L Toxicology Vancomycin Trough (10.0 - 20.0 ug/mL) 6.0 L Last 24 Hours of Meet Results: No recent cultures Assessment/Plan Impression: Stable status post repeat debridement of necrotic muscle and soft tissues of the posterior aspect of the right leg 10 days ago for persistent purulence of the necrotic wound that developed following anterior and lateral fasciotomies 7 weeks prior to admission following trauma. She remains afebrile with white blood cell count normal on Vancomycin and Ceftazidime for coag-negative Staph and Pseudomonas isolated from the OR culture. Her Carlson catheter remains in place, but a voiding trial would be appropriate, with intermittent straight catheterization initiated if she continues to have urinary retention. Suggestion: 1. Remove Carlson catheter and initiate straight cath protocol 2. Discontinue Vancomycin and Ceftazidime and follow off antibiotics
--- NOTE | 2016-11-13 13:12 | PN- Vascular Surgery ---
Surgical Brief Attending Note Brief Attending Note: patient well. still ambulating with physical therapy EXAM Right calf: santiago wound almost healed; posterior calf wound with good granulation tissue; mild fibrinous exudate A/P Right posterior calf wound looks good. continue VAC Conitine IV abx. Possible transfer early next week.
[2016-11-13 14:10] VITALS: BP 120/60
[2016-11-13 22:15] VITALS: BP 110/60
[2016-11-14 06:22] VITALS: BP 94/52
--- NOTE | 2016-11-14 07:21 | PN- Vascular Surgery ---
See Addendum Subjective Subjective: No acute overnighte events reported. Pain well controlled. Denies nausea and vomitting. Has been ambulatory with a rolling walker and assistance. Objective Vital Signs and I&Os Vital Signs Date Time Temp Pulse Resp B/P B/P Pulse O2 O2 Flow FiO2 Mean Ox Delivery Rate 11/14 621 97.4 83 20 94/52 96 Room Air 11/13 2215 98.3 70 20 110/60 97 Room Air 11/13 1552 Room Air 11/13 1410 98.0 66 20 120/60 93 Intake & Output 11/14 0811/14 0000 11/13 1600 11/13 0800 11/13 0000 11/12 1600 Intake Total 200 150 700 50 700 Output Total 300 350 302 520 300 450 Balance -100 -200 398 -470 -300 250 Intake, IV 100 50 100 Intake, Oral 200 150 600 600 Output, 20 Drainage Output, Stool 2 Output, Urine 300 350 300 500 300 450 Physical Exam: afebrile, vss Chest: clear anteriorly bilaterally, RRR Abd: soft, good bs Ext: RLE - wound vac in place with good suction. lower leg dressed in ROBINSON wrap - wound being managed by wound care. Positive sensate, no calf tenderness Assessment/Plan Assessment/Plan 60yo female with an extensive hospital stay for a right pop wound infection s/p Right calf fasciotomy for rhabdo following a trauma several weeks ago. -Wound vac change per Denisha - wound care (2-3x/week) -dc ABX per ID recommendations - follow off abx for now -Will contact Dr. Luu for further recommendations regarding españa -dc to str soon -Continue OOB, ambulate with assist -Continue sqh as dvt ppx Core Measures/Miscellaneous [place] Catheter Date In: 10/28/16 Venous Thromboembolism VTE Risk Factors: Age > 40, Surgery VTE Contraindications: No Contraindications VTE Diagnosis: No VTE Type: NONE VTE Confirmed by (Test): NONE Beta Danyell Is Beta Danyell a Home Med? No Antibiotics Is Patient on Antibiotics? Yes If Yes: infection
--- NOTE | 2016-11-14 09:54 | Patient Discharge Instructions ---
Discharge Instructions General Discharge Information You were seen/treated for: Debridement of right leg infection and wound care You had these procedures: debridement of right leg, wound vac placement Watch for these problems: Increased pain or redness and drainage of wounds Do not soak the wound: Yes Other wound care: Vac will be placed by wound care services three times weekly, wound care services will also take care of the wounds on the right lower leg, dressing them three times weekly with xeroform Special Instructions: Carlson catheter is a chronic indwelling catheter. Recommendation is to be changed monthly by nursing. Follow up with Dr Luu as needed. Diet Recommended Diet: Regular Activity Activity Self Limited: Yes Acute Coronary Syndrome Inclusion Criteria At DC or during hospital stay patient has or had the following: ACS DIAGNOSIS No Discharge Core Measures Meds if any: Prescribed or Continued at Discharge Meds if any: NOT Prescribed or Continued at Discharge Congestive Heart Failure Inclusion Criteria At DC or during hospital stay patient has or had the following: CHF DIAGNOSIS No Discharge Core Measures Meds if any: Prescribed or Continued at Discharge Meds if any: NOT Prescribed or Continued at Discharge Cerebrovascular accident Inclusion Criteria At DC or during hospital stay patient has or had the following: CVA/TIA Diagnosis No Discharge Core Measures Meds if any: Prescribed or Continued at Discharge Meds if any: NOT Prescribed or Continued at Discharge Venous thromboembolism Inclusion Criteria VTE Diagnosis No VTE Type NONE VTE Confirmed by (Test) NONE Discharge Core Measures - Per Current guidelines, there needs to be overlap - treatment for the first 5 days of Warfarin therapy. - If discharged on Warfarin prior to 5 days of - overlap therapy, the patient will need to be - assessed for post discharge needs including - *Post discharge parental anticoagulation - *Warfarin and/or parental anticoagulation education - *Follow up date to check INR post discharge At least 5 days overlap therapy as Inpatient No Meds if any: Prescribed or Continued at Discharge Note: Overlap Therapy is Warfarin and Anticoagulant Meds if any: NOT Prescribed or Continued at Discharge
--- NOTE | 2016-11-14 12:03 | Surgical Discharge Summary ---
Visit Information Visit Dates Admission Date: 10/28/16 Discharge Date: 11/15/16 History of Present Illness Chief Complaint: See H and P Medical History Blood Transfusion Hx: No Neurological: multiple sclerosis, trigeminal neuralgia EENT: NONE Cardiovascular: hyperlipidemia Respiratory: NONE Gastrointestinal: constipation Hepatic: NONE Renal: nephrolithiasis Musculoskeletal: falls, fracture Psychiatric: NONE Endocrine: NONE Blood Disorders: NONE Cancer(s): NONE [employer] AS[employer]ER/Reproductive: NONE History of MRSA: No History of VRE: No History of CDIFF: No Isolation History: Standard Influenza Vaccine: 04/06/16 Surgical History Pertinent Surgical History: appendectomy, fasciotomies to right calf Psychosocial History Who Do You Live With? Spouse Services at Home: None What is Your Primary Language? Mozambican Review of Systems: See H and P Hospital Course Course Attending Physician: TONY HERMAN MD Primary Care Physician: SAURABH PHELPS,[facility] Course: Pt underwent a debridement on 10/28 of a right popliteal fossa wound which was a much more extensive debridement than expected. Postoperatively therefore, she needed to be admitted for antibiotics, wound care and consultation. She was returned to the OR on 11/02 for further debridement. BID dressing changes continued with Dakins wet to dry dressings until 11/08 at which point a wound vac was placed. At that time the area looked good with healthy granulation tissue and there was no eschar and no further areas of necrosis noted. She continued to have vac changes every 2-3 days by the donation specialist and the wound was evaluated by vascular surgery at each vac change and continued to look good. Due to her history of MS, she has very little sensation to her extremities and suffers from no pain at this area and requires no pain meds throughout her stay. In addition to that wound, her previous fasciotomy wounds on her RLE were dressed with xeroform and managed by the wound care service as before hospitalization. That area continued to look good and was healing. She was followed by Dr Jeff of [place] throughout her stay and was monitored on fortaz and vancomycin until 11/13 at which point antiibiotics were discontinued and she was to be monitored off all antibiotics. She had a españa at admission which was placed for a neurogenic bladder - relating to her MS. She was previously seen by Dr Luu and has had procedures on kidney stones in the past. His recommendation would be for self straight cath permanently, but as the patient is unable to straight cath herself due to her MS, the solution therefore is for a españa catheter, to be changed monthly by nursing. She was deemed cleared for discharge to rehab after her antibiotics were discontinued, as she no longer had a need to be hospitalized and her wounds could be managed as an outpatient. Her wound care will consisit of vac changes and xerofrom changes three times weekly. She is ambulating with a rolling walker, but has lost some strength over her course of stay. A multipodus boot was placed to her RLE for foot drop. Follow up with in one week (, november 22, in [facility]) Complications: None Allergies: Coded Allergies: NO KNOWN ALLERGIES (04/27/14) Significant Procedures: RLE debridement times two, Wound vac placement and changes. See operative report Disposition Summary Disposition Principal Diagnosis: RLE infection Additional Diagnosis: MS, s/p fasciotomies Discharge Disposition: SNF Discharge Instructions General Discharge Information Code Status: Full Code Patient's Diet: Regular Patient's Activity: As tolerated Requiring assistance with rolling walker at this time Multipodus boot to RLE Follow-Up Instructions/Appts: Call for an appointment with Dr Herman in one week Medications at Discharge Discharge Medications: Continue taking these medications: Aspirin (Ecotrin*) 81 MG TABLET. 1 Tablet ORAL DAILY Comments: Last Taken: 09/12/16 Time: 1000 Loratadine (Claritin) 10 MG TABLET 1 Tablet ORAL DAILY NEEDED Comments: NOT GIVEN IN HOSPITAL Lamotrigine (Lamictal) 25 MG TABLET 25 Milligram ORAL DAILY Qty = 21 Copies To: BATSHEVA PHELPS,TONY JEFF MD,MYRON Carter
--- NOTE | 2016-11-14 12:50 | ULTRASOUND REPORT ---
EXAMINATION: US RETROPERITONEAL COMPLETE (RENAL) CLINICAL INFORMATION: 60-year-old female found to have distended urinary bladder and bilateral hydroureteronephrosis, on recent CT study dated 09/11/2016. Status post Carlson's catheter placement. For follow-up. COMPARISON: CT of the abdomen and pelvis done on 09/11/2016. TECHNIQUE: Real-time imaging of the kidneys and bladder. FINDINGS: RIGHT KIDNEY: 9.4 x 3.7 x 4.7 cm (SAG x AP x TRV). The kidney is normal in size, contour, and echogenicity. Renal cortical thickness is normal. No focal parenchymal lesions. No hydronephrosis. 5 mm echogenic focus is noted at the inferior pole, most consistent with a nonobstructing calculus. LEFT KIDNEY: 9.4 x 5.1 x 5.0 cm (SAG x AP x TRV). The kidney is normal in size, contour, and echogenicity. Renal cortical thickness is normal. No calculi or focal parenchymal lesions. No hydronephrosis. BLADDER: There is a Carlson's catheter present. The urinary bladder is decompressed. Bilateral ureteral jets are not demonstrated. IMPRESSION: 1. Interval resolution of bilateral hydronephrosis since the prior CT study dated 09/11/2016. 2. Evidence of Carlson's catheter within the urinary bladder showing decompressed urinary bladder as well.
[2016-11-14 13:51] VITALS: BP 116/77
[2016-11-14 22:37] VITALS: BP 120/56
[2016-11-15 06:30] VITALS: BP 118/64
--- NOTE | 2016-11-15 10:52 | PN- Vascular Surgery ---
Subjective Subjective: No complaints. Wound vac changed today by Denisha with new measurements defined on paperwork. The patient feels like she has improved motion in her foot, and feels that the multipodus boot has been helpful. No longer on iv antibiotics, which will enable us to discharge her to SNF today. Objective Vital Signs and I&Os Vital Signs Date Time Temp Pulse Resp B/P B/P Pulse O2 O2 Flow FiO2 Mean Ox Delivery Rate 11/15 0630 97.7 89 18 118/64 96 Room Air 11/15 0000 Room Air 11/14 2237 97.9 91 20 120/56 97 Room Air 11/14 1441 Room Air 11/14 1351 97.7 66 20 116/77 95 Intake & Output 11/15 1600 11/15 0800 11/15 0000 11/14 1600 11/14 0811/14 0000 Intake Total 240 300 425 200 150 Output Total 225 300 600 300 350 Balance 15 0 -175 -100 -200 Intake, Oral 240 300 425 200 150 Number 0 Bowel Movements Output, Urine 225 300 600 300 350 Physical Exam: afebrile, vss Chest - clear anteriorly bilaterally, RRR Abdomen - soft, good bs Extremities - RLE wound vac in place with good suction. lower leg dressed in ROBINSON wrap - wound being managed by wound care. Positive sensate, no calf tenderness. in multipodus boot. Current Medications: Current Medications Sig/Ronak Start time Last Medication Dose Route Stop Time Status Admin Acetaminophen 650 MG Q6P PRN 11/02 1115 AC 11/12 PO 1407 Aspirin Buffered 81 MG DAILY 11/03 1000 AC 11/14 PO 1118 Docusate Sodium 100 MG DAILY 11/03 1000 AC 11/14 PO 1118 Heparin Sodium 5,000 UNIT Q8 11/02 1400 AC 11/15 (Porcine) SC 0526 Lamotrigine 25 MG DAILY 11/02 1400 AC 11/14 PO 1118 Ondansetron HCl 4 MG Q6P PRN 11/02 1115 AC IV Oxycodone/ 2 TAB Q4P PRN 11/02 1115 AC Acetaminophen PO Polyethylene Glycol 17 GM DAILY 11/04 1000 AC 11/14 PO 1119 Sodium Hypochlorite 1 AIDA DAILY 11/03 1000 AC 11/07 TOP 0859 Assessment/Plan Assessment/Plan 60yo female with an extensive hospital stay for a right pop wound infection s/p right calf fasciotomy for rhabdo following a trauma several weeks ago wound vac changed today with measurements re-defined following off antibiotics españa to remain in place, with outpatient f/u with urology continue OOB / ambulation with assistance multipodus boot in place d/c to SNF today d/w . he would like to see her next in the [facility] Core Measures/Miscellaneous [place] Catheter Date In: 10/28/16 Venous Thromboembolism VTE Risk Factors: Age > 40, Surgery VTE Contraindications: No Contraindications VTE Diagnosis: No VTE Type: NONE VTE Confirmed by (Test): NONE Beta Danyell Is Beta Danyell a Home Med? No Antibiotics Is Patient on Antibiotics? Yes If Yes: infection
[2016-11-15] MEDS ORDERED: DOCUSATE SODIU100 M3 PO (12:06)
[2016-11-15] MEDS ORDERED: TYLENOL325 M1 PO (12:06)
[2016-11-15] MEDS ORDERED: MIRALAX119 GM PO (12:07)
[2016-11-15 12:09] VITALS: BP 118/64
== END 2016-11-15 13:24 | DRG 908 ==
LOC: STS 04:29 → 2NA 15:22 → PACUH 15:22 → ENRESERV 16:11 → 2NA 17:15 → ENPENDDIS 11-15 10:48 → 2NA 11-15 13:24
PROVIDERS: Nurse Practitioner; Physician Assistant; Physician Assistant Surgical; ADMIT Surgery Vascular Surgery
PROC: 0KBS0ZZ Excision of Right Lower Leg Muscle, Open Approach (ICD-10-PCS; principal; 2016-10-28)
PROC: 0KBS0ZZ Excision of Right Lower Leg Muscle, Open Approach (ICD-10-PCS; 2016-11-02)
DX: T79.A21A Traumatic compartment syndrome of right lower extremity, initial encounter (principal); I96 Gangrene, not elsewhere classified; G35 Multiple sclerosis; N31.9 Neuromuscular dysfunction of bladder, unspecified; E78.5 Hyperlipidemia, unspecified; G50.0 Trigeminal neuralgia; B96.5 Pseudomonas (aeruginosa) (mallei) (pseudomallei) as the cause of diseases classified elsewhere; B95.8 Unspecified staphylococcus as the cause of diseases classified elsewhere; R33.9 Retention of urine, unspecified
CPT/HCPCS: 2NAP; 87070; 87075; 76775; 82436; 87071; 87086; 87147; 88304; 93005; 93010; 97110-GO; 97116-GO; 97161-GP; 97530-GO; J0690; J0713; J1100; J1644; J2185; J2405; J3370; J7040; J7042